=== PATIENT | female | born 1985 | race African-American/Black ===

== ENCOUNTER 2020-02-28 18:04 | Inpatient (IN) ==
[2020-02-28 18:35] VITALS: BMI 21.4
--- NOTE | 2020-02-28 20:55 | DR.GENAD ---
HPI Time Seen Time Seen by Provider: 02/28/20 20:54 PCP Primary Care Physician: GAIL SOLORZANO Complaint/Symptoms Chief Complaint:: PT HAS BRUISING NOTED TO LT HAND PT STATES" I THINK I HAVE A BLOOD CLOT IN MY HAND THAT HAS WENT UP IN MY LT ARM AND SHOULDER" COVID-19 Coronavirus risk:travel/contact w/high risk person: No Has patient experienced Coronavirus symptoms: No Nurses notes reviewed Nurses Notes Review: Yes Source History Provided: Patient Mode of Arrival Mode of Arrival: Ambulatory Timing Onset of Chief Complaint: 02/26/20 Came on: Suddenly Duration Duration: Constant Duration: Days Severity Severity: Moderate Modifying Factors Worsens:: MOVEMENT Improves:: REST. Associated Signs and Symptoms Associated Signs and Symptoms: ARTHRTIS Other History Other History: LUPUS. 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 Past Surgical History Comment: BILATERALLY HIP AND KNEE REPLACEMENT Family History History of Family Medical Conditions: No Social History Type of Tobacco Use: Cigarettes Does any household member use tobacco: Yes Alcohol Use: None Do you use any recreational Drugs:: Yes (THC) Lives With: Family Lives Where: Home Travel Risk Coronavirus risk:travel/contact w/high risk person: No Has patient experienced Coronavirus symptoms: No Infectious screening In the last 2 months have you had wt loss of >10#?: NO Have you had fever, night sweats or hemotysis?: No Have you traveled outside the country in the last 6 months?: No Isolation: Standard ROS Review of Systems Constitutional: No Symptoms Reported and See HPI; negative Fever, Weakness and Fatigue Eyes: No Symptoms Reported and See HPI; negative Blurred Vision and Diplopia ENTM: No Symptoms Reported and See HPI; negative Nose Discharge and Nose Congestion Respiratoy: No Symptoms Reported, See HPI and Moist Cough; negative Short of Breath and Wheezing Cardiovascular: See HPI and Edema; negative Chest Pain Gastrointestinal/Abdominal: No Symptoms Reported and See HPI; negative Abdominal Pain, Diarrhea, Nausea and Vomiting Genitourinary: No Symptoms Reported and See HPI; negative Dysuria, Frequency and Hematuria Neurological: See HPI and Headache; negative Weakness and Dizziness Musculoskeletal: See HPI, Arm (LT), Elbow (LT), Forearm (LT) and Wrist (LT) Integumentary: See HPI, Change in Color and Rash Hematologic/Lymphatic: See HPI, Blood Clots, Swollen Glands and Lymphadenopathy Endocrine: No Symptoms Reported and See HPI; negative Increased Thirst and Increased Urine Psychiatric: No Symptoms Reported and See HPI All Other Systems: Reviewed and Negative PE Vital Signs Vitals: Temperature 98.8 F Pulse Rate 90 Respiratory Rate 22 Blood Pressure 102/53 O2 Sat by Pulse Oximetry 97 General Limitations: No Limitations General Appearance: Alert and In No Apparent Distress Head Head Exam: Normal Inspection Eyes Eye exam: Normal Appearance and PERRL; negative Scleral Icterus and Conjunctival Injection ENT ENT Exam: Normal Exam, Normal Oropharynx, Normal External Ear Exam and TM's Normal Bilaterally External Ear Exam: Normal External Inspection; negative Mastoid Tenderness TM/Canal Exam: Bilateral: Normal Nose Exam: Normal Nose Exam Mouth Exam: Normal Inspection; negative Lip Swelling and Tongue Swelling Throat Exam: Normal Inspection; negative Tonsillar Erythema, Tonsillomegaly and Tonsillar Exudate Neck Neck Exam: Normal Inspection and Trachea Midline; negative Tenderness and Lymp hadenopathy Chest Chest Inspection: Normal Inspection and Symmetric Chest Wall Rise; negative Tenderness Respiratory Respiratory Exam: Normal Lung Sounds Bilat; negative Accessory Muscle Use, Chest Wall Tenderness and Respiratory Distress Respiratory Exam: Bilateral: Clear to Auscultation Cardiovascular Cardiovascular Exam: Regular Rate, Normal Rhythm and Normal Heart Sounds; negative Systolic Murmur and Diastolic Murmur Abdominal Exam Abdominal Exam: Normal Inspection, Normal Bowel Sounds and Soft; negative Tenderness Extremities Extremities Exam: Tenderness (LUE SWOLLEN AND TENDER.) Back Back Exam: Normal Inspection and Paraspinal Tenderness; negative (R) CVA Tenderness and (L) CVA Tenderness Neurologic Neurological Exam: Alert, Oriented X3 and CN II-XII Intact; negative Motor Sensory Deficit Psychiatric Psychiatric Exam: Normal Affect and Normal Mood Skin Skin Exam: Warm, Dry, Intact and Normal Color MDM Differential Diagnosis Differential Diagnosis: DVT LUE, PAIN LUE. LUPUS COURSE Treatment Treatment: SEE ORDERAS. TORADOL 60MG IM. Consultation Consultation Comments: DISCUSSED PATIENT WITH DR. GUERRERO. HE WILL ADMIT PATIENT. Education/Counseling Education/Counseling: Patient Educated On: Diagnosis ROR Labs Reviewed Laboratory Results Reviewed?: Yes Result Diagrams: 02/28/20 20:59 02/28/20 20:59 Laboratory: WBC 7.4 X10^3/uL (3.6-10.0) 02/28/20 20:59 RBC 3.23 X10^6/uL (3.5-5.4) L 02/28/20 20:59 Hgb 10.7 g/dL (12.0-16.0) L 02/28/20 20:59 Hct 31.8 % (36.0-47.0) L 02/28/20 20:59 MCV 98.6 fL (80.0-100.0) 02/28/20 20:59 MCH 33.1 pg (27.0-34.0) 02/28/20 20:59 MCHC 33.6 g/dL (33.0-35.0) 02/28/20 20:59 RDW 17.9 % (11.6-16.5) H 02/28/20 20:59 Plt Count 233 X10^3/uL (150.0-450.0) 02/28/20 20:59 MPV 7.5 fL (7.4-11.0) 02/28/20 20:59 Neut % (Auto) 64.3 % (42.0-75.0) 02/28/20 20:59 Lymph % (Auto) 26.4 % (21.0-51.0) 02/28/20 20:59 [place] % (Auto) 8.3 % (0.0-13.0) 02/28/20 20:59 Eos % (Auto) 0.0 % (0.9-2.9) L 02/28/20 20:59 Baso % (Auto) 1.0 % (0.2-1.0) 02/28/20 20:59 Neut # (Auto) 4.8 x10^3/uL (2.2-4.8) 02/28/20 20:59 Lymph # (Auto) 2.0 X10^3/uL (1.3-2.9) 02/28/20 20:59 [place] # (Auto) 0.6 x10^3/uL (0.3-0.8) 02/28/20 20:59 Eos # (Auto) 0.0 x10^3/uL (0.0-0.2) 02/28/20 20:59 Baso # (Auto) 0.1 X10^3/uL (0.0-0.1) 02/28/20 20:59 Absolute Nucleated RBC 0.1 /100WBC 02/28/20 20:59 PT 12.7 SECONDS (11.8-14.3) 02/28/20 23:56 INR Target Range - 02/28/20 23:56 INR 0.98 (0.8-1.3) 02/28/20 23:56 APTT 31.6 SECONDS (22.9-36.5) 02/28/20 23:56 PTT Comment - 02/28/20 23:56 D-Dimer 1130 ng/mL (0-400) H* 02/28/20 20:59 Sodium 132 mmol/L (136-145) L 02/28/20 20:59 Corrected Sodium TNP 02/28/20 20:59 Potassium 3.7 mmol/L (3.5-5.1) 02/28/20 20:59 Chloride 98 mmol/L (98-107) 02/28/20 20:59 Carbon Dioxide 29.2 mmol/L (21-32) 02/28/20 20:59 BUN 8 mg/dL (7-18) 02/28/20 20:59 Creatinine 0.61 mg/dL (0.55-1.02) 02/28/20 20:59 Est GFR (MDRD) Af Amer > 60 (>60) 02/28/20 20:59 Est GFR (MDRD) Non-Af > 60 (>60) 02/28/20 20:59 Glucose 75 mg/dL (65-99) 02/28/20 20:59 Calcium 8.7 mg/dL (8.5-10.1) 02/28/20 20:59 Corrected Calcium TNP 02/28/20 20:59 Total Bilirubin 0.30 mg/dL (0.2-1.0) 02/28/20 20:59 AST 32 Units/L (15-37) 02/28/20 20:59 ALT 36 Units/L (12-78) 02/28/20 20:59 Alkaline Phosphatase 107 Units/L (46-116) 02/28/20 20:59 C-Reactive Protein 30.70 mg/L (0-3.0) H 02/28/20 23:56 Total Protein 7.4 g/dL (6.4-8.2) 02/28/20 20:59 Albumin 3.4 g/dL (3.4-5.0) 02/28/20 20:59 Globulin 4.0 g/dL (2.5-4.5) 02/28/20 20:59 Albumin/Globulin Ratio 0.9 Ratio (1.1-2.1) L 02/28/20 20:59 Specimen Type Clean catch urine 02/28/20 23:38 Urine Color Yellow (YELLOW) 02/28/20 23:38 Urine Appearance Clear (CLEAR) 02/28/20 23:38 Urine pH 7.0 (5.0 - 8.0) 02/28/20 23:38 Ur Specific [place] 1.005 (1.000-1.030) 02/28/20 23:38 Urine Protein Negative (NEGATIVE) 02/28/20 23:38 Urine Glucose (UA) Negative (NEGATIVE) 02/28/20 23:38 Urine Ketones Negative (NEGATIVE) 02/28/20 23:38 Urine Occult Blood 1+ (NEGATIVE) 02/28/20 23:38 Urine Nitrite Negative (NEGATIVE) 02/28/20 23:38 Urine Bilirubin Negative (NEGATIVE) 02/28/20 23:38 Urine Urobilinogen Normal (NORMAL) 02/28/20 23:38 Ur Leukocyte Esterase 2+ (NEGATIVE) 02/28/20 23:38 Urine RBC 3-5 /HPF (0-3) A 02/28/20 23:38 Urine WBC 0-2 /HPF (0-5) 02/28/20 23:38 Ur Squamous Epith Cells Few /HPF (NEGATIVE) 02/28/20 23:38 Urine Bacteria Trace /HPF (NEGATIVE) 02/28/20 23:38 Ur Culture Indicated? No/not indicated 02/28/20 23:38 Urine Opiates Screen Positive (NEG=<300) A 02/28/20 23:38 Urine Methadone Screen Negative (NEG=<300) 02/28/20 23:38 Ur Barbiturates Screen Negative (NEG=<200) 02/28/20 23:38 Ur Phencyclidine Scrn Negative (NEG=<25) 02/28/20 23:38 Ur Amphetamines Screen Negative (NEG=<1000) 02/28/20 23:38 U Benzodiazepines Scrn Negative (NEG=<200) 02/28/20 23:38 Urine Cocaine Screen Positive (NEG=<300) A 02/28/20 23:38 U Marijuana (THC) Screen Negative (NEG=<50) 02/28/20 23:38 SARS-CoV-2 (PCR) Negative (NEGATIVE) 02/28/20 23:28 XRAY XRAY Interpreted by: Radiologist (US LUE REPORT NOTED AND DISCUSSED WITH JULIEN ENT.) Opioid Opioid Risk Tool Age (Yimi box if 16-45): Yes History of Preadolescent Sexual Abuse: No Total: 1 Total Score Risk Category: Low Risk Copyright: [facility] predicting aberrant behaviors Diagnosis Discharge Problem: Acute deep vein thrombosis of left upper extremity Qualifiers: Affected thrombotic vein of extremity: other upper extremity vein Qualified Code(s): I82.622 - Acute embolism and thrombosis of deep veins of left upper extremity Acute basilic vein thrombosis Qualifiers: Laterality: left Qualified Code(s): I82.612 - Acute embolism and thrombosis of superficial veins of left upper extremity Instructions Forms: Excuse From Work Precautions for COVID19 Patient Portal Social Distancing
[2020-02-28 21:03] LABS: BASOPHILS # (AUTO) 0.1 X10^3/uL (0.0-0.1); HEMATOCRIT 31.8 % (36.0-47.0); HEMOGLOBIN 10.7 g/dL (12.0-16.0); LYMPHOCYTES % (AUTO) 26.4 % (21.0-51.0); MEAN CORPUSCULAR HEMOGLOBIN 33.1 pg (27.0-34.0); MEAN CORPUSCULAR HGB CONC 33.6 g/dL (33.0-35.0); MEAN CORPUSCULAR VOLUME 98.6 fL (80.0-100.0); MEAN PLATELET VOLUME 7.5 fL (7.4-11.0); MONOCYTES # (AUTO) 0.6 x10^3/uL (0.3-0.8); MONOCYTES % (AUTO) 8.3 % (0.0-13.0); NEUTROPHILS # (AUTO) 4.8 x10^3/uL (2.2-4.8); NEUTROPHILS % (AUTO) 64.3 % (42.0-75.0); PLATELET COUNT 233 X10^3/uL (150.0-450.0); RED BLOOD COUNT 3.23 X10^6/uL (3.5-5.4); RED CELL DISTRIBUTION WIDTH 17.9 % (11.6-16.5); WHITE BLOOD COUNT 7.4 X10^3/uL (3.6-10.0)
[2020-02-28] MEDS ORDERED: TORADOL 60 MG VIAL IM ONE (21:06)
[2020-02-28] MEDS ORDERED: TORADOL 60 MG VIAL ONE (21:10)
[2020-02-28 21:18] LABS: ALANINE AMINOTRANSFERASE 36 Units/L (12-78); ALBUMIN 3.4 g/dL (3.4-5.0); ALKALINE PHOSPHATASE 107 Units/L (46-116); ASPARTATE AMINO TRANSFERASE 32 Units/L (15-37); BLOOD UREA NITROGEN 8 mg/dL (7-18); CALCIUM 8.7 mg/dL (8.5-10.1); CARBON DIOXIDE 29.2 mmol/L (21-32); CHLORIDE 98 mmol/L (98-107); CREATININE 0.61 mg/dL (0.55-1.02); SODIUM 132 mmol/L (136-145); TOTAL PROTEIN 7.4 g/dL (6.4-8.2); eGFR NON BLACK RACES > 60 (>60)
--- NOTE | 2020-02-28 21:23 | RAD ---
STUDY: HAND, LEFTCOMPARISON: NoneHISTORY: PT HAS BRUISING/ SWELLING NOTED TO LT HAND PT STATES" I THINK I HAVE A BLOOD CLOT IN MY HAND THAT HAS WENT UP IN MY LT ARM AND SHOULDER" unable to remove ring from swollen fingerFINDINGS:There is no evidence of fracture or joint dislocation.There is no evidence of an embedded radiopaque foreign body.Please note that the patient is wearing a ring on the 4th digit.IMPRESSION:There is no evidence of fracture or joint dislocation.Electronically signed by: David Murray (Feb 28, 2020 21:22:11)
--- NOTE | 2020-02-28 23:09 | VAS ---
STUDY: DUPLEX ULTRASOUND OF THE LEFT UPPER EXTREMITY VEINSCOMPARISON: NoneTECHNIQUE: 30 images were provided for interpretation.HISTORY: PAIN IN LEFT ARM X 3 DAYSFINDINGS:Exam is positive for thrombus in the left basilic vein demonstrated on image 26. The left jugular vein and subclavian vein demonstrate vascular flow. The left axillary vein, brachial vein, radial vein, and ulnar vein demonstrate compression and augmentation.IMPRESSION:Exam is positive for thrombus in the left basilic vein.Electronically signed by: David Murray (Feb 28, 2020 23:07:57)
[2020-02-28] MEDS ORDERED: TORADOL 30 MG VIAL IVP ONE (23:38)
[2020-02-29 00:39] LABS: BILIRUBIN,URINE NEGATIVE (NEGATIVE); BLOOD/HEMOGLOBIN,URINE 1+ (NEGATIVE); GLUCOSE, URINE NEGATIVE (NEGATIVE); KETONES,URINE NEGATIVE (NEGATIVE); LEUKOCYTE ESTERASE ,URINE 2+ (NEGATIVE); NITRITES,URINE NEGATIVE (NEGATIVE); PROTEIN,URINE NEGATIVE (NEGATIVE); UROBILINOGEN,URINE NORMAL (NORMAL)
[2020-02-29 00:40] LABS: APPEARANCE,URINE CLEAR (CLEAR); BACTERIA,URINE TRACE /HPF (NEGATIVE); COLOR,URINE YELLOW (YELLOW); SQUAMOUS EPITHELIAL CELL,UR FEW /HPF (NEGATIVE)
[2020-02-29] MEDS ORDERED: HEPARIN SODIUM INJ 5000 UNITS ONE ×2 (00:51→09:27)
[2020-02-29] MEDS ORDERED: HEPARIN SODIUM IN D5W 25,000 UNITS/500 ML BAG IV ONE (00:51)
[2020-02-29] MEDS: HEPARIN SODIUM IN D5W 25,000 UNITS/500 ML BAG IV PRN (01:00)
[2020-02-29] MEDS ORDERED: HEPARIN SODIUM INJ 5000 UNITS IVP ONE ×2 (01:01→09:21)
[2020-02-29] MEDS ORDERED: ROXICODONE TAB 15 MG ONE (02:23)
[2020-02-29] MEDS ORDERED: ROXICODONE TAB 15 MG PO ONE (02:30)
[2020-02-29] MEDS ORDERED: POTASSIUM CHL 40 MEQ/NS 0.45% 500 ML IV PRN (08:00)
[2020-02-29] MEDS ORDERED: MICRO K EXTEN CAP 10 MEQ PO PRN (08:00)
[2020-02-29] MEDS ORDERED: POTASSIUM CHLORIDE LIQ 20 MEQ UDC PO PRN (08:00)
[2020-02-29] MEDS ORDERED: POTASSIUM CHL 60 MEQ/NS 0.45% 500 ML IV PRN (08:00)
[2020-02-29] MEDS ORDERED: KLOR-CON PO PRN (08:00)
[2020-02-29] MEDS ORDERED: K-RIDER 10 MEQ/NS 100 ML 10 MEQ/100 ML BAG IV PRN (08:00)
[2020-02-29] MEDS ORDERED: K-DUR TAB 20 MEQ PO PRN (08:00)
[2020-02-29 08:07] LABS: ALANINE AMINOTRANSFERASE 32 Units/L (12-78); ALBUMIN 2.8 g/dL (3.4-5.0); ALKALINE PHOSPHATASE 111 Units/L (46-116); ASPARTATE AMINO TRANSFERASE 29 Units/L (15-37); BLOOD UREA NITROGEN 9 mg/dL (7-18); CALCIUM 7.8 mg/dL (8.5-10.1); CARBON DIOXIDE 28.2 mmol/L (21-32); CHLORIDE 101 mmol/L (98-107); COR CA(FOR HYPOALB) 8.8 mg/dL (8.5-10.1); CREATININE 0.51 mg/dL (0.55-1.02); SODIUM 132 mmol/L (136-145); TOTAL PROTEIN 6.6 g/dL (6.4-8.2); eGFR NON BLACK RACES > 60 (>60)
[2020-02-29 08:13] LABS: BASOPHILS # (AUTO) 0.1 X10^3/uL (0.0-0.1); BASOPHILS % (AUTO) 1.4 % (0.2-1.0); EOSINOPHILS % (AUTO) 0.1 % (0.9-2.9); HEMATOCRIT 30.6 % (36.0-47.0); HEMOGLOBIN 10.1 g/dL (12.0-16.0); LYMPHOCYTES % (AUTO) 42.1 % (21.0-51.0); MEAN CORPUSCULAR HEMOGLOBIN 32.3 pg (27.0-34.0); MEAN CORPUSCULAR HGB CONC 32.9 g/dL (33.0-35.0); MEAN CORPUSCULAR VOLUME 98.3 fL (80.0-100.0); MEAN PLATELET VOLUME 8.7 fL (7.4-11.0); MONOCYTES # (AUTO) 0.6 x10^3/uL (0.3-0.8); MONOCYTES % (AUTO) 8.8 % (0.0-13.0); NEUTROPHILS # (AUTO) 3.4 x10^3/uL (2.2-4.8); NEUTROPHILS % (AUTO) 47.6 % (42.0-75.0); PLATELET COUNT 217 X10^3/uL (150.0-450.0); RED BLOOD COUNT 3.11 X10^6/uL (3.5-5.4); RED CELL DISTRIBUTION WIDTH 18.2 % (11.6-16.5); WHITE BLOOD COUNT 7.2 X10^3/uL (3.6-10.0)
[2020-02-29] MEDS ORDERED: OXYCODONE 30 MG PO SCH (09:00)
[2020-02-29] MEDS ORDERED: K-DUR TAB 20 MEQ PO ONE (09:26)
[2020-02-29] MEDS ORDERED: TORADOL 30 MG VIAL ONE (09:26)
[2020-02-29] MEDS: TORADOL 30 MG VIAL IVP PRN ×2 (09:29→17:23)
[2020-02-29] MEDS ORDERED: MAGNESIUM SULFATE 1 GRAM/100 mL PREMIX 2 G/200 ML BAG IV ONE (09:49)
[2020-02-29] MEDS ORDERED: MAGNESIUM SULFATE 1 GRAM/100 mL PREMIX 1 GM/100 ML BAG IV PRN (10:18)
[2020-02-29] MEDS: ROXICODONE TAB 15 MG PO SCH ×2 (10:22→22:29)
[2020-02-29] MEDS ORDERED: NS 250 ML IV 250 ML IV PRN (10:38)
[2020-02-29] MEDS ORDERED: NS 250 ML IV 250 ML IV ONE (10:40)
--- NOTE | 2020-02-29 11:15 | DR.H&P ---
H&P - History & Physical for Day of: H&P Date: 02/29/20 - Chief Complaint Chief Complaint: LEFT HAND, ARM, AND SHOULDER SWELLING AND PAIN - History of Present Illness History of Present Illness: IS A 34 YEAR OLD PATIENT OF [facility]. SHE PRESENTED TO THE ER WITH COMPLAINT OF LEFT HAND, ARM, AND SHOULDER SWELLING AND PAIN. SYMPTOMS REPORTEDLY STARTED THREE DAYS PRIOR. PAIN IS DESCRIBED THROBBING AND IS RATED 7/10. HER PMH INCLUDES: LUPUS, ARTHRITIS, BOWEL RESECTION, , BILATERAL HIP AND KNEE REPLACEMENT, AND SUBSTANCE ABUSE. ON ARRIVAL TO THE ER, VITALS WERE 98.8-90-18-97%-102/53. LABS WERE OBTAINED. ABNORMAL LAB VALUES INCLUDE THE FOLLOWING: RBC 3.23, HGB 10.7, HCT 31.8, D-DIMER 1130, SODIUM 132, CRP 30.70. A URINALYSIS WAS OBTAINED AND REVEALED: WBC 0-2, RBC 3-5, LEUKOCYTES 2+, BACTERIA TRACE. TOXICOLOGY IS POSITIVE FOR OPIATES AND COCAINE. A HAND XRAY WAS OBTAINED AND REVEALED: There is no evidence of fracture or joint dislocation. AN UPPER EXTREMITY VENOUS DOPPLER WAS OBTAINED AND REVEALED: Exam is positive for thrombus in the left basilica vein. EKG REVEALED: SINUS RHYTHM WITH HR 79. SHE WAS GIVEN TORADOL 60MG IM X 1 IN THE ER AND STARTED ON A HEPARIN DRIP. SHE WAS ADMITTED FOR FURTHER EVALUATION AND TREATMENT OF DVT TO THE LEFT UPPER EXTREMITY AND LEFT UPPER EXTREMITY PAIN. SHE WILL REMAIN ON A HEPARIN DRIP AND WAS ALSO STARTED ON NS AT KVO, TORADOL 30MG IV Q8H PRN, METHOTREXATE 10MG PO WEEKLY, ROXICODONE 30MG PO BID, AND THE POTASSIUM AND MAGNESIUM PROTOCOLS. WE WILL COST CHECK ANTICOAGULANTS WITH HER INSURANCE AND MAKE FURTHER PLANS BASED ON OUR FINDINGS. OTHERWISE, WE PLAN TO FOLLOW UP WITH AM LABS AND CONTINUE TO MONITOR. - Past Medical History Past Medical History: Arthritis - Past Surgical History Surgical History: , Ortho Surgery, Other - Family History Family Medical History: Diabetes Mellitus, Cancer - Social History Does patient currently use any type of tobacco product: No Have you used tobacco products in the last 12 months: No Type of Tobacco Use: None Does any household member use tobacco: No Alcohol Use: None Drug Use: Prescription Drugs, Marijuana, Other - Medications Home Medications: vancomycin Allergy (Verified 02/28/20 18:24) CONTINUE taking the following medications methotrexate sodium 10 mg PO WEEKLY 02/28/20 [History] oxycodone 30 mg PO BID 02/28/20 [History] ergocalciferol (vitamin D2) 1,250 mcg PO MONTHLY 02/29/20 [History] prednisone 5 mg PO BID 02/29/20 [History] - Review of Systems Constitutional: No Symptoms Reported Eyes: No Symptoms Reported ENT: No Symptoms Reported Respiratory: No Symptoms Reported Cardiovascular: Edema (LEFT ARM SWELLING ) Gastrointestinal: No Symptoms Reported Genitourinary: No Symptoms Reported Musculoskeletal: See HPI, Shoulder Pain, Arm Pain, Hand Pain Skin: See HPI Neurological: No Symptoms Reported - Physical Exam Vital Signs: Temperature 98.2 F Pulse Rate [Left] 80 Pulse Rate 90 Respiratory Rate 20 Blood Pressure [Left Arm] 107/60 Blood Pressure 102/53 O2 Sat by Pulse Oximetry 97 Oriented: Normal Eyes: Normal Ear: Normal Nose: Normal Throat: Normal Respiratory: Diminished Throughout Cardiovascular: Normal : Normal Auscultation: Bowel Sounds: Normal Palpation: Normal Tenderness: Normal Skin: Normal Musculoskeletal: Left, Shoulder, Arm, Swelling, Tender Psychiatric: Normal Mood Description: Calm Affect: Normal Speech Pattern: Clear - Assessment/Plan (1) Acute deep vein thrombosis of left upper extremity Qualifiers: Affected thrombotic vein of extremity: other upper extremity vein Qualified Code(s): I82.622 - Acute embolism and thrombosis of deep veins of left upper extremity Status: Acute Plan: ADMIT, NS AT KVO, HEPARIN DRIP, TORADOL 30MG IV Q8H PRN, METHOTREXATE 10MG PO WEEKLY, ROXICODONE 30MG PO BID, AND THE POTASSIUM AND MAGNESIUM PROTOCOLS (2) Acute basilic vein thrombosis Qualifiers: Laterality: left Qualified Code(s): I82.612 - Acute embolism and thrombosis of superficial veins of left upper extremity Status: Acute - Allergies Allergies/Adverse Reactions: Allergies Allergy/AdvReac Type Severity Reaction Status Date / Time vancomycin Allergy Verified 02/28/20 18:24
[2020-03-01] MEDS: TORADOL 30 MG VIAL IVP PRN (05:21)
[2020-03-01] MEDS: HEPARIN SODIUM IN D5W 25,000 UNITS/500 ML BAG IV PRN (05:23)
[2020-03-01 05:42] LABS: BASOPHILS # (AUTO) 0.2 X10^3/uL (0.0-0.1); BASOPHILS % (AUTO) 2.8 % (0.2-1.0); EOSINOPHILS % (AUTO) 0.2 % (0.9-2.9); HEMATOCRIT 31.3 % (36.0-47.0); HEMOGLOBIN 10.4 g/dL (12.0-16.0); LYMPHOCYTES # (AUTO) 2.1 X10^3/uL (1.3-2.9); LYMPHOCYTES % (AUTO) 34.7 % (21.0-51.0); MEAN CORPUSCULAR HEMOGLOBIN 32.9 pg (27.0-34.0); MEAN CORPUSCULAR HGB CONC 33.1 g/dL (33.0-35.0); MEAN CORPUSCULAR VOLUME 99.5 fL (80.0-100.0); MEAN PLATELET VOLUME 8.8 fL (7.4-11.0); MONOCYTES # (AUTO) 0.5 x10^3/uL (0.3-0.8); MONOCYTES % (AUTO) 8.8 % (0.0-13.0); NEUTROPHILS # (AUTO) 3.2 x10^3/uL (2.2-4.8); NEUTROPHILS % (AUTO) 53.5 % (42.0-75.0); PLATELET COUNT 209 X10^3/uL (150.0-450.0); RED BLOOD COUNT 3.15 X10^6/uL (3.5-5.4); RED CELL DISTRIBUTION WIDTH 18.4 % (11.6-16.5)
[2020-03-01 05:50] LABS: ALANINE AMINOTRANSFERASE 41 Units/L (12-78); ALBUMIN 2.6 g/dL (3.4-5.0); ALKALINE PHOSPHATASE 136 Units/L (46-116); ASPARTATE AMINO TRANSFERASE 42 Units/L (15-37); BLOOD UREA NITROGEN 7 mg/dL (7-18); CALCIUM 7.8 mg/dL (8.5-10.1); CARBON DIOXIDE 25.8 mmol/L (21-32); CHLORIDE 105 mmol/L (98-107); COR CA(FOR HYPOALB) 8.9 mg/dL (8.5-10.1); CREATININE 0.55 mg/dL (0.55-1.02); MAGNESIUM 2.2 mg/dL (1.7-2.9); SODIUM 138 mmol/L (136-145); TOTAL PROTEIN 6.3 g/dL (6.4-8.2); eGFR NON BLACK RACES > 60 (>60)
[2020-03-01] MEDS: ROXICODONE TAB 15 MG PO SCH (08:27)
[2020-03-01] MEDS ORDERED: ELIQUIS PO ONE (09:42)
[2020-03-01 10:16] VITALS: BP 112/57
[2020-03-02 08:36] LABS: ANTI-NUCLEAR ANTIBODY TEST Detected (None Detected); PROTEIN C ACTIVITY 85 % (83-168)
[2020-03-04] MEDS ORDERED: METHOTREXATE PO SCH (09:00)
== END 2020-03-01 11:05 | disposition home or self-care (01) | DRG 301 ==
LOC: ER 18:09 → MED/SURG 02-29 01:17
PROVIDERS: ADMIT Internal Medicine; ATTEND Internal Medicine
DX: I82.612 Acute embolism and thrombosis of superficial veins of left upper extremity; R94.31 Abnormal electrocardiogram [ECG] [EKG]; R60.0 Localized edema; Z11.59 Encounter for screening for other viral diseases; F14.90 Cocaine use, unspecified, uncomplicated; I82.622 Acute embolism and thrombosis of deep veins of left upper extremity; M79.602 Pain in left arm; F11.90 Opioid use, unspecified, uncomplicated
CPT/HCPCS: 36415; 73130; 80053; 80307; 81001; 81240; 82615; 83090; 83735; 85025; 85300; 85303; 85305; 85306; 85307; 85378; 85597; 85610; 85613; 85635; 85652; 85670; 85730; 85732; 86038; 86039; 86140; 86308; 87635; 93005; 93971; 94760; 96365; 96372; 96374; 96375; 99284; A4222; J1644; J1885; J3475; J7050

== ENCOUNTER 2020-03-06 17:10 | Inpatient (IN) ==
[2020-03-06 17:20] VITALS: BMI 21.4
--- NOTE | 2020-03-06 17:38 | DR.EXTPAIN ---
HPI Time seen Time Seen by Provider: 03/06/20 17:38 PCP Primary Care Physician: GAIL HPI Comment HPI Comment: PATIENT IS 34YR OLD FEMALE WITH SYSTEMIC LUPUS ERYTHOMATOSIS IN ER WITH DVT LEFT BASIIC VEIN THAT IS GETTING WORSE SINCE YESTERDAY. PAIN IN INCEASED AND SWELLING IS WORSE. SHE WAS ADMITTED TO [facility] HERE ONE WEEK AGO, PLACE ON HEPARIN DRIP AND DISCHARGE HOME ON [address]. WAS DOING FINE WHEN SHE STARTED GETTING WORSE YESTERDAY. LUE IS SWOLLEN AND WARM. RUNNING LOW GRADE FEVER. SHE IS COMPLAINT WITH HER MEDICATION. PATIENT IS HAVING INCREASING NUMBNESS IN LUE. PAIN IS 7/10 AND RADIATES TO HAND AND ARM. Complaint/Symptoms Chief Complaint Doctor Comments: LEFT FOREARM AND UPPER EXTREMITY PAIN TIMES 8 DAYS. WORSE YESTERDAY. Chief Complaint:: PT C/O LT FOREARM PAIN. PT STATES SHE WAS JUST IN THE HOSPITAL WITH A BLOOD CLOT AND WAS TOLD THAT IF SHE HAS ANY NEW SYMPTOMS TO COME BACK. PT STATES SHE IS HAVING NUMBNESS AND TINGLING TO HER HAND AND PAIN IN HER FOREARM. COVID-19 Coronavirus risk:travel/contact w/high risk person: No Has patient experienced Coronavirus symptoms: Yes Coronavirus symptoms experienced: Fever Nurses notes reviewed Nurses Notes Review: Yes Source History Provided: Patient Mode of arrival Mode of Arrival: Ambulatory Timing Onset of Chief Complaint: 03/05/20 Context History of: Arthritis Associated signs and symptoms Associated Signs and Symptoms: Pain and Swelling PMH PMH Past Medical History: Yes Past Medical History: Arthritis Past Medical History Comment: LUPUS Past Surgical History: Yes Surgical History: , Ortho Surgery and Other Past Surgical History Comment: ABD SURGERY, HERNIA REPAIR Family History History of Family Medical Conditions: Yes Family Medical History: Diabetes Mellitus and Cancer Social History Does patient currently use any type of tobacco product: Yes Have you used tobacco products in the last 12 months: Yes Type of Tobacco Use: Cigarettes Does any household member use tobacco: Yes Alcohol Use: None Do you use any recreational Drugs:: No Lives With: Family Lives Where: Home Travel Risk Coronavirus risk:travel/contact w/high risk person: No Has patient experienced Coronavirus symptoms: Yes Coronavirus symptoms experienced: Fever Infectious screening In the last 2 months have you had wt loss of >10#?: NO Have you had fever, night sweats or hemotysis?: No Have you traveled outside the country in the last 6 months?: No Isolation: Droplet ROS Review of Systems Constitutional: No Symptoms Reported, See HPI and Fever; negative Weakness and Fatigue Eyes: No Symptoms Reported and See HPI; negative Blurred Vision and Diplopia ENTM: No Symptoms Reported and See HPI; negative Ear Pain, Nose Discharge, Nose Congestion and Throat Pain Respiratoy: No Symptoms Reported and See HPI; negative Moist Cough, Short of Breath and Wheezing Cardiovascular: No Symptoms Reported and See HPI; negative Chest Pain and Palpitations Gastrointestinal/Abdominal: No Symptoms Reported and See HPI; negative Abdominal Pain, Diarrhea and Vomiting Genitourinary: No Symptoms Reported and See HPI; negative Dysuria, Frequency and Hematuria Neurological: No Symptoms Reported, See HPI, Numbness (LUE.) and Paresthesia (LUE.) Musculoskeletal: No Symptoms Reported, See HPI, Arm (LT.), Elbow (LT.), Forearm (LT.), Wrist (LT.) and Hand (LT.) Integumentary: No Symptoms Reported and See HPI; negative Change in Color, Rash and Juandice Hematologic/Lymphatic: See HPI, Anemia, Blood Clots, Easy Bleeding and Easy Bruising Endocrine: No Symptoms Reported and See HPI; negative Increased Thirst, Increased Urine and Decreased Appetite Psychiatric: No Symptoms Reported and See HPI All Other Systems: Reviewed and Negative PE Vital Signs Vitals: Temperature 99.0 F Pulse Rate [Right] 75 Pulse Rate 99 Respiratory Rate 21 Blood Pressure [Right Arm] 122/84 Blood Pressure 109/68 O2 Sat by Pulse Oximetry 97 General Limitations: No Limitations General Appearance: Alert and In No Apparent Distress Head Head Exam: Normal Inspection and Atraumatic Eyes Eye exam: Normal Appearance and PERRL; negative Scleral Icterus and Conjunctival Injection ENT ENT Exam: Normal Exam, Normal Oropharynx, Normal External Ear Exam and TM's Normal Bilaterally Neck Neck Exam: Normal Inspection and Trachea Midline; negative Tenderness and Lymphadenopathy Chest Chest Inspection: Normal Inspection and Symmetric Chest Wall Rise; negative Tenderness Respiratory Respiratory Exam: Normal Lung Sounds Bilat; negative Accessory Muscle Use, Chest Wall Tenderness and Respiratory Distress Respiratory Exam: Bilateral: Clear to Auscultation Cardiovascular Cardiovascular Exam: Regular Rate, Normal Rhythm and Normal Heart Sounds; n egative Systolic Murmur and Diastolic Murmur Abdominal Exam Abdominal Exam: Normal Inspection, Normal Bowel Sounds and Soft; negative Tenderness Extremities Extremities Exam: Tenderness, Normal Capillary Refill and Edema (LUE SWELLING, LATERAL LEFT ELBOW MORE SWOLLEN.); negative Full ROM and Calf Tenderness Back Back Exam: negative (R) CVA Tenderness and (L) CVA Tenderness Neurological Neurological Exam: Alert, Oriented X3 and CN II-XII Intact; negative Motor Sensory Deficit Psychiatric Psychiatric Exam: Normal Affect and Normal Mood Skin Skin Exam: Warm and Erythema MDM Differential Diagnosis Differential Diagnosis: Other (DVT LUE, SWELLING AND PAIN LUE, SLE.) COURSE Treatment Treatment: SEE ORDERS. HEPARIN DRIP IN ER. MORPHIN 4MG IV AND ZOFRAN 4MG IV IN ER. Reevaluation 1st: Improved (PAIN SLIGHTLY IMPROVED.) Consultation Consultation Comments: DISCUSSED PATIENT WITH DR. MONTALVO. HE WILL ADMIT PATIENT. Education/Counseling Education/Counseling: Patient Educated On: Diagnosis ROR Labs Reviewed Laboratory Results Reviewed?: Yes Result Diagrams: 03/08/20 05:05 03/08/20 05:05 Laboratory: WBC 5.5 X10^3/uL (3.6-10.0) 03/06/20 22:11 RBC 3.15 X10^6/uL (3.5-5.4) L 03/06/20 22:11 Hgb 10.5 g/dL (12.0-16.0) L 03/06/20 22:11 Hct 31.1 % (36.0-47.0) L 03/06/20 22:11 MCV 98.7 fL (80.0-100.0) 03/06/20 22:11 MCH 33.2 pg (27.0-34.0) 03/06/20 22:11 MCHC 33.7 g/dL (33.0-35.0) 03/06/20 22:11 RDW 18.9 % (11.6-16.5) H 03/06/20 22:11 Plt Count 304 X10^3/uL (150.0-450.0) 03/06/20 22:11 MPV 9.2 fL (7.4-11.0) 03/06/20 22:11 Neut % (Auto) 55.7 % (42.0-75.0) 03/06/20 22:11 Lymph % (Auto) 32.6 % (21.0-51.0) 03/06/20 22:11 [place] % (Auto) 10.8 % (0.0-13.0) 03/06/20 22:11 Eos % (Auto) 0.1 % (0.9-2.9) L 03/06/20 22:11 Baso % (Auto) 0.8 % (0.2-1.0) 03/06/20 22:11 Neut # (Auto) 3.0 x10^3/uL (2.2-4.8) 03/06/20 22:11 Lymph # (Auto) 1.8 X10^3/uL (1.3-2.9) 03/06/20 22:11 [place] # (Auto) 0.6 x10^3/uL (0.3-0.8) 03/06/20 22:11 Eos # (Auto) 0.0 x10^3/uL (0.0-0.2) 03/06/20 22:11 Baso # (Auto) 0.0 X10^3/uL (0.0-0.1) 03/06/20 22:11 Absolute Nucleated RBC 0.0 /100WBC 03/06/20 22:11 PT 12.9 SECONDS (11.8-14.3) 03/06/20 22:11 INR Target Range - 03/06/20 22:11 INR 1.00 (0.8-1.3) 03/06/20 22:11 APTT 31.3 SECONDS (22.9-36.5) 03/06/20 22:11 PTT Comment - 03/06/20 22:11 Sodium 142 mmol/L (136-145) 03/06/20 22:11 Corrected Sodium TNP 03/06/20 22:11 Potassium 4.1 mmol/L (3.5-5.1) 03/06/20 22:11 Chloride 108 mmol/L (98-107) H 03/06/20 22:11 Carbon Dioxide 21.4 mmol/L (21-32) 03/06/20 22:11 BUN 15 mg/dL (7-18) 03/06/20 22:11 Creatinine 0.53 mg/dL (0.55-1.02) L 03/06/20 22:11 Est GFR (MDRD) Af Amer > 60 (>60) 03/06/20 22:11 Est GFR (MDRD) Non-Af > 60 (>60) 03/06/20 22:11 Glucose 108 mg/dL (65-99) H 03/06/20 22:11 Calcium 8.9 mg/dL (8.5-10.1) 03/06/20 22:11 Corrected Calcium 9.5 mg/dL (8.5-10.1) 03/06/20 22:11 Total Bilirubin 0.30 mg/dL (0.2-1.0) 03/06/20 22:11 AST 26 Units/L (15-37) 03/06/20 22:11 ALT 26 Units/L (12-78) 03/06/20 22:11 Alkaline Phosphatase 167 Units/L (46-116) H 03/06/20 22:11 Total Protein 7.0 g/dL (6.4-8.2) 03/06/20 22:11 Albumin 3.3 g/dL (3.4-5.0) L 03/06/20 22:11 Globulin 3.7 g/dL (2.5-4.5) 03/06/20 22:11 Albumin/Globulin Ratio 0.9 Ratio (1.1-2.1) L 03/06/20 22:11 SARS-CoV-2 (PCR) Negative (NEGATIVE) 03/06/20 22:41 XRAY XRAY Interpreted by: Radiologist (REPORT NOTED AND DISCUSSED WITH PATIENT.) Opioid Opioid Risk Tool Age (Yimi box if 16-45): Yes History of Preadolescent Sexual Abuse: No Total: 1 Total Score Risk Category: Low Risk Copyright: [facility] predicting aberrant behaviors Diagnosis Discharge Problem: Diffuse pain in left upper extremity Acute basilic vein embolism Qualifiers: Laterality: left Qualified Code(s): I82.612 - Acute embolism and thrombosis of superficial veins of left upper extremity SLE (systemic lupus erythematosus) Qualifiers: Systemic lupus erythematosus type: other Systemic lupus erythematosus organ involvement: unspecified Qualified Code(s): M32.8 - Other forms of systemic lupus erythematosus Instructions Instructions: Fatigue Hand Washing, [id number] Managing Pain Without Opioids Pain Scale Information, Adult Weakness, [id number] Opioid Pain Medicine Information, [id number] Personal Hygiene Bleeding Precautions When on Anticoagulant Therapy, Adult Deep Vein Thrombosis Venous Thromboembolism Prevention Forms: Precautions for COVID19 Patient Portal Social Distancing
--- NOTE | 2020-03-06 19:24 | VAS ---
HISTORYLUE SWELLING AND PAIN[Extremity pain, swelling, and edema]Study: Left upper extremity Doppler venous ultrasound.Comparison: February 28, 2020.TECHNIQUE: Multiple blank scale and color flow Doppler images of the deep venous system were obtained of the left upper extremity.FINDINGS:The deep venous system of the left upper extremity evaluated from the level of the internal jugular vein through the [radial and ulnar veins]. Normal color flow and augmentation can be observed. In addition, normal compression is seen throughout the upper extremity deep venous system. Residual thrombus in the left basilic vein.IMPRESSION:Residual, slightly enlarged, venous thrombus observed in the left basilic vein.Electronically signed by: GRACE NGUYEN III (Mar 06, 2020 19:23:56)
[2020-03-06] MEDS ORDERED: NS 1000 ML 1,000 ML ONE (22:23)
[2020-03-06] MEDS ORDERED: HEPARIN SODIUM IN D5W 25,000 UNITS/500 ML BAG IV ONE (22:23)
[2020-03-06] MEDS: NS 1000 ML 1,000 ML IV SCH (22:35)
[2020-03-06] MEDS ORDERED: HEPARIN SODIUM INJ 5000 UNITS ONE (22:49)
[2020-03-06] MEDS: HEPARIN SODIUM IN D5W 25,000 UNITS/500 ML BAG IV PRN (22:53)
[2020-03-06] MEDS ORDERED: HEPARIN SODIUM INJ 5000 UNITS IVP ONE (22:54)
[2020-03-06] MEDS ORDERED: ZOFRAN INJ 4 MG VIAL IVP ONE (23:19)
[2020-03-06] MEDS ORDERED: MORPHINE SULFATE INJ 4 MG IVP ONE (23:19)
[2020-03-06] MEDS ORDERED: MORPHINE SULFATE INJ 4 MG ONE (23:20)
[2020-03-06] MEDS ORDERED: ZOFRAN INJ 4 MG VIAL ONE (23:20)
[2020-03-06 23:55] LABS: BASOPHILS % (AUTO) 0.8 % (0.2-1.0); EOSINOPHILS % (AUTO) 0.1 % (0.9-2.9); HEMATOCRIT 31.1 % (36.0-47.0); HEMOGLOBIN 10.5 g/dL (12.0-16.0); LYMPHOCYTES # (AUTO) 1.8 X10^3/uL (1.3-2.9); LYMPHOCYTES % (AUTO) 32.6 % (21.0-51.0); MEAN CORPUSCULAR HEMOGLOBIN 33.2 pg (27.0-34.0); MEAN CORPUSCULAR HGB CONC 33.7 g/dL (33.0-35.0); MEAN CORPUSCULAR VOLUME 98.7 fL (80.0-100.0); MEAN PLATELET VOLUME 9.2 fL (7.4-11.0); MONOCYTES # (AUTO) 0.6 x10^3/uL (0.3-0.8); MONOCYTES % (AUTO) 10.8 % (0.0-13.0); NEUTROPHILS % (AUTO) 55.7 % (42.0-75.0); PLATELET COUNT 304 X10^3/uL (150.0-450.0); RED BLOOD COUNT 3.15 X10^6/uL (3.5-5.4); RED CELL DISTRIBUTION WIDTH 18.9 % (11.6-16.5); WHITE BLOOD COUNT 5.5 X10^3/uL (3.6-10.0)
[2020-03-07 00:04] LABS: ALANINE AMINOTRANSFERASE 26 Units/L (12-78); ALBUMIN 3.3 g/dL (3.4-5.0); ALKALINE PHOSPHATASE 167 Units/L (46-116); ASPARTATE AMINO TRANSFERASE 26 Units/L (15-37); BLOOD UREA NITROGEN 15 mg/dL (7-18); CALCIUM 8.9 mg/dL (8.5-10.1); CARBON DIOXIDE 21.4 mmol/L (21-32); CHLORIDE 108 mmol/L (98-107); COR CA(FOR HYPOALB) 9.5 mg/dL (8.5-10.1); CREATININE 0.53 mg/dL (0.55-1.02); SODIUM 142 mmol/L (136-145); eGFR NON BLACK RACES > 60 (>60)
[2020-03-07] MEDS ORDERED: MOTRIN TAB 600 MG PO PRN (02:50)
[2020-03-07] MEDS ORDERED: ZOFRAN INJ 4 MG VIAL IVP PRN (02:50)
[2020-03-07] MEDS ORDERED: CIPRO IV 200 MG PREMIX* 200 MG/100 ML BAG IV SCH ×2 (02:50→12:00)
[2020-03-07] MEDS ORDERED: ZOFRAN TAB 4 MG PO PRN (02:50)
[2020-03-07] MEDS ORDERED: CIPRO IV ONE (03:00)
[2020-03-07] MEDS ORDERED: MOTRIN TAB 600 MG PO ONE (03:00)
[2020-03-07] MEDS: MORPHINE SULFATE INJ 4 MG IVP PRN ×4 (05:05→21:56)
[2020-03-07] MEDS: NS 1000 ML 1,000 ML IV SCH ×3 (05:16→22:28)
[2020-03-07 06:49] LABS: BASOPHILS # (AUTO) 0.1 X10^3/uL (0.0-0.1); BASOPHILS % (AUTO) 1.2 % (0.2-1.0); EOSINOPHILS % (AUTO) 0.1 % (0.9-2.9); HEMATOCRIT 30.5 % (36.0-47.0); HEMOGLOBIN 10.4 g/dL (12.0-16.0); LYMPHOCYTES % (AUTO) 36.5 % (21.0-51.0); MEAN CORPUSCULAR HEMOGLOBIN 33.3 pg (27.0-34.0); MEAN CORPUSCULAR HGB CONC 34.1 g/dL (33.0-35.0); MEAN CORPUSCULAR VOLUME 97.9 fL (80.0-100.0); MEAN PLATELET VOLUME 8.3 fL (7.4-11.0); MONOCYTES # (AUTO) 0.7 x10^3/uL (0.3-0.8); MONOCYTES % (AUTO) 12.2 % (0.0-13.0); NEUTROPHILS # (AUTO) 2.7 x10^3/uL (2.2-4.8); PLATELET COUNT 289 X10^3/uL (150.0-450.0); RED BLOOD COUNT 3.11 X10^6/uL (3.5-5.4); RED CELL DISTRIBUTION WIDTH 19.2 % (11.6-16.5); WHITE BLOOD COUNT 5.4 X10^3/uL (3.6-10.0)
[2020-03-07 06:56] LABS: ALANINE AMINOTRANSFERASE 23 Units/L (12-78); ALBUMIN 2.9 g/dL (3.4-5.0); ALKALINE PHOSPHATASE 149 Units/L (46-116); ASPARTATE AMINO TRANSFERASE 24 Units/L (15-37); BLOOD UREA NITROGEN 16 mg/dL (7-18); CALCIUM 8.2 mg/dL (8.5-10.1); CARBON DIOXIDE 20.9 mmol/L (21-32); CHLORIDE 110 mmol/L (98-107); COR CA(FOR HYPOALB) 9.1 mg/dL (8.5-10.1); SODIUM 141 mmol/L (136-145); TOTAL PROTEIN 6.8 g/dL (6.4-8.2); eGFR NON BLACK RACES > 60 (>60)
[2020-03-07] MEDS ORDERED: K-RIDER 10 MEQ/NS 100 ML 10 MEQ/100 ML BAG IV PRN ×2 (07:00→07:39)
[2020-03-07] MEDS ORDERED: POTASSIUM CHL 60 MEQ/NS 0.45% 500 ML IV PRN ×2 (07:00→07:39)
[2020-03-07] MEDS ORDERED: POTASSIUM CHLORIDE LIQ 20 MEQ UDC PO PRN ×2 (07:00→07:39)
[2020-03-07] MEDS ORDERED: K-DUR TAB 20 MEQ PO PRN ×2 (07:00→07:39)
[2020-03-07] MEDS ORDERED: KLOR-CON PO PRN ×2 (07:00→07:39)
[2020-03-07] MEDS ORDERED: MICRO K EXTEN CAP 10 MEQ PO PRN ×2 (07:00→07:39)
[2020-03-07] MEDS ORDERED: POTASSIUM CHL 40 MEQ/NS 0.45% 500 ML IV PRN ×2 (07:00→07:39)
[2020-03-07] MEDS ORDERED: HEPARIN SODIUM INJ 5000 UNITS ONE ×2 (07:21→20:07)
[2020-03-07] MEDS ORDERED: HEPARIN SODIUM INJ 5000 UNITS IVP ONE ×2 (07:27→20:05)
[2020-03-07] MEDS ORDERED: MAGNESIUM SULFATE 1 GRAM/100 mL PREMIX 1 GM/100 ML BAG IV PRN (07:39)
[2020-03-07] MEDS: MAG-OX TAB PO SCH ×2 (10:07→17:32)
--- NOTE | 2020-03-07 18:24 | DR.H&P ---
H&P - History & Physical for Day of: H&P Date: 03/07/20 - Chief Complaint Chief Complaint: BLOOD CLOT IN LEFT ARM, LEFT ARM PAIN AND SWELLING - History of Present Illness History of Present Illness: PT IS 34F ER ADMISSION WITH CO INCREASED PAIN TO LEFT UPPER ARM. PT WAS DIAGNOSED WITH DVT TO CHARLY LAST WEEK, SENT HOME ON PO ELIQUIS. PT REPORTS SHE WAS TAKEN DIRECTED, 10MG BID, WHICH SHE HAS HAD 3 DOSES AT HOME. PT HAS PMH OF LUPUS, REPORTS PREVIOUS DVT - Past Medical History Past Medical History: Arthritis - Past Surgical History Surgical History: , Ortho Surgery - Family History Family Medical History: Diabetes Mellitus, Cancer - Social History Does patient currently use any type of tobacco product: No Have you used tobacco products in the last 12 months: No Type of Tobacco Use: None Does any household member use tobacco: No Alcohol Use: None Drug Use: Prescription Drugs, Marijuana - Medications Home Medications: vancomycin Allergy (Verified 02/28/20 18:24) - Review of Systems Constitutional: No Symptoms Reported Eyes: No Symptoms Reported, Vision Change Respiratory: No Symptoms Reported Cardiovascular: No Symptoms Reported Gastrointestinal: No Symptoms Reported Genitourinary: No Symptoms Reported Musculoskeletal: Arm Pain Skin: No Symptoms Reported Neurological: No Symptoms Reported - Physical Exam Vital Signs: Temperature 98.3 F Pulse Rate [Right] 72 Pulse Rate 99 Respiratory Rate 18 Blood Pressure [Right Arm] 108/59 Blood Pressure 109/68 O2 Sat by Pulse Oximetry 100 Oriented: Normal Eyes: Normal Ear: Normal Nose: Normal Throat: Normal Respiratory: Clear Throughout Cardiovascular: Normal : Normal Auscultation: Bowel Sounds: Normal Palpation: Normal Tenderness: Normal Skin: Normal Musculoskeletal: Left, Arm, Tender Psychiatric: Normal Mood Description: Calm Speech Pattern: Clear, Appropriate - Assessment/Plan (1) Acute deep vein thrombosis of left upper extremity Qualifiers: Affected thrombotic vein of extremity: other upper extremity vein Qualified Code(s): I82.622 - Acute embolism and thrombosis of deep veins of left upper extremity Status: Acute Plan: ADMIT, IV HEPARIN DRIP ON ADMISSION. REPEAT US IN ER, CONTINUE BP MONITORING. VERIFY HOME MEDICATION (2) Lupus Status: Acute (3) Acute basilic vein thrombosis Qualifiers: Laterality: left Qualified Code(s): I82.612 - Acute embolism and thrombosis of superficial veins of left upper extremity Status: Acute - Allergies Allergies/Adverse Reactions: Allergies Allergy/AdvReac Type Severity Reaction Status Date / Time vancomycin Allergy Verified 02/28/20 18:24
[2020-03-07] MEDS: PERCOCET TAB 5/325 MG PO PRN (20:16)
[2020-03-08] MEDS: MORPHINE SULFATE INJ 4 MG IVP PRN ×4 (02:23→15:00)
[2020-03-08] MEDS: MAG-OX TAB PO SCH (06:17)
[2020-03-08] MEDS: HEPARIN SODIUM IN D5W 25,000 UNITS/500 ML BAG IV PRN (06:17)
[2020-03-08] MEDS: NS 1000 ML 1,000 ML IV SCH ×3 (06:17→14:22)
[2020-03-08 06:34] LABS: BASOPHILS # (AUTO) 0.1 X10^3/uL (0.0-0.1); BASOPHILS % (AUTO) 1.8 % (0.2-1.0); EOSINOPHILS % (AUTO) 0.2 % (0.9-2.9); HEMATOCRIT 28.8 % (36.0-47.0); HEMOGLOBIN 9.5 g/dL (12.0-16.0); LYMPHOCYTES # (AUTO) 2.1 X10^3/uL (1.3-2.9); LYMPHOCYTES % (AUTO) 47.1 % (21.0-51.0); MEAN CORPUSCULAR HEMOGLOBIN 32.8 pg (27.0-34.0); MEAN CORPUSCULAR HGB CONC 32.9 g/dL (33.0-35.0); MEAN CORPUSCULAR VOLUME 99.6 fL (80.0-100.0); MEAN PLATELET VOLUME 9.5 fL (7.4-11.0); MONOCYTES # (AUTO) 0.5 x10^3/uL (0.3-0.8); MONOCYTES % (AUTO) 10.7 % (0.0-13.0); NEUTROPHILS # (AUTO) 1.8 x10^3/uL (2.2-4.8); NEUTROPHILS % (AUTO) 40.2 % (42.0-75.0); PLATELET COUNT 279 X10^3/uL (150.0-450.0); RED CELL DISTRIBUTION WIDTH 19.3 % (11.6-16.5); WHITE BLOOD COUNT 4.5 X10^3/uL (3.6-10.0)
[2020-03-08 06:53] LABS: ALANINE AMINOTRANSFERASE 25 Units/L (12-78); ALBUMIN 2.5 g/dL (3.4-5.0); ALKALINE PHOSPHATASE 130 Units/L (46-116); ASPARTATE AMINO TRANSFERASE 26 Units/L (15-37); BLOOD UREA NITROGEN 10 mg/dL (7-18); CALCIUM 7.2 mg/dL (8.5-10.1); CARBON DIOXIDE 21.2 mmol/L (21-32); CHLORIDE 111 mmol/L (98-107); COR CA(FOR HYPOALB) 8.4 mg/dL (8.5-10.1); CREATININE 0.51 mg/dL (0.55-1.02); SODIUM 140 mmol/L (136-145); eGFR NON BLACK RACES > 60 (>60)
[2020-03-08] MEDS: PERCOCET TAB 5/325 MG PO PRN (08:23)
[2020-03-08] MEDS ORDERED: ELIQUIS PO SCH (09:45)
[2020-03-08] MEDS ORDERED: BACTRIM DS TAB PO SCH (10:00)
[2020-03-08 16:22] VITALS: BP 125/80
== END 2020-03-08 17:55 | disposition home or self-care (01) | DRG 301 ==
LOC: ER 17:14 → MED/SURG 03-07 00:54
PROVIDERS: ADMIT Internal Medicine; ATTEND Internal Medicine
DX: Z79.01 Long term (current) use of anticoagulants; Z11.59 Encounter for screening for other viral diseases; I82.622 Acute embolism and thrombosis of deep veins of left upper extremity; M32.8 Other forms of systemic lupus erythematosus; R60.0 Localized edema; M79.602 Pain in left arm; I82.612 Acute embolism and thrombosis of superficial veins of left upper extremity
CPT/HCPCS: 36415; 80053; 83735; 85025; 85610; 85730; 87635; 93971; 96365; 96367; 96374; 96375; 99284; A4216; A4222; J1644; J2270; J2405; J7030

== ENCOUNTER 2021-11-18 22:02 | Inpatient (IN) ==
[2021-11-18 22:17] VITALS: BMI 22.2
--- NOTE | 2021-11-18 22:34 | DR.EXTPAIN ---
HPI Time seen Time Seen by Provider: 11/18/21 22:31 PCP Primary Care Physician: RASHAD REYNOLDS HPI Comment HPI Comment: Worsening cough and sob x several days after having a ct scan last week which showed the 'clot in my rt lung completely cleared"; fever, chills developed over the past few days and she has been unable to sleep x four days per the ; no abd pain, n/v/d; she was bumped up to lovenox 80 but did not have a rf for the 80 mg so thinks she's supposed to drop back down to 60 a day. Complaint/Symptoms Chief Complaint:: PT SPOUSE STATES SHE HAS LUPUS, HE STATES SHE HAS INSOMIA ALSO AND HAS NOT SLEPT IN 4 DAYS. Self Treatment fo Chief Complaint: NUQUIL AT NIGHT. Source History Provided: Family Member Mode of arrival Mode of Arrival: Ambulatory Timing Onset of Chief Complaint: 11/15/21 PMH PMH Past Medical History: Yes Past Medical History: Arthritis Past Medical History Comment: LUPUS Past Surgical History: Yes Surgical History: Past Surgical History Comment: BILATERAL KNEE AND HIP REPLACEMENTS. SURGERY FOR BOWEL OBSTRUCTION. Family History History of Family Medical Conditions: Yes Family Medical History: Diabetes Mellitus Social History Type of Tobacco Use: Cigarettes Do you use any recreational Drugs:: No Lives With: Family Lives Where: Home Infectious screening Have you traveled outside the country in the last 6 months?: No Isolation: Standard ROS Review of Systems Constitutional: See HPI, Fever, Malaise and Fatigue Eyes: No Symptoms Reported ENTM: No Symptoms Reported Respiratoy: Short of Breath Cardiovascular: No Symptoms Reported Gastrointestinal/Abdominal: No Symptoms Reported Genitourinary: No Symptoms Reported Neurological: No Symptoms Reported Musculoskeletal: No Symptoms Reported Integumentary: No Symptoms Reported Hematologic/Lymphatic: No Symptoms Reported Endocrine: No Symptoms Reported Psychiatric: No Symptoms Reported PE Vital Signs Vitals: Temperature 102.9 F Pulse Rate 102 Respiratory Rate 18 Blood Pressure [Right Arm] 125/80 Blood Pressure [Left Arm] 107/60 Blood Pressure 100/65 O2 Sat by Pulse Oximetry 92 General Limitations: No Limitations General Appearance: Alert and In No Apparent Distress Head Head Exam: Normal Inspection Eyes Eye exam: Normal Appearance ENT ENT Exam: Normal Exam Neck Neck Exam: Normal Inspection Chest Chest Inspection: Normal Inspection and Symmetric Chest Wall Rise Respiratory Respiratory Exam: Normal Lung Sounds Bilat Respiratory Exam: Bilateral: Clear to Auscultation Cardiovascular Cardiovascular Exam: Normal Rhythm and Tachycardia Abdominal Exam Abdominal Exam: Normal Inspection, Normal Bowel Sounds and Soft Extremities Extremities Exam: Normal Inspection Back Back Exam: Normal Inspection Neurological Neurological Exam: Alert, Oriented X3 and CN II-XII Intact Psychiatric Psychiatric Exam: Agitated and Anxious Skin Skin Exam: Warm, Dry, Intact and Rash (hyperpigmentation diffusely over face) COURSE Reevaluation 1st: Resolved (hollering out periodically, says she's been doing this x 4 days; no prior hx of this) 2nd: Worsened (wandering around room off balance occasionally calling out, trying to take telemetry off) Consultation Call Returned: 02:25 (Dr Rea accepts admission.) [facility]OR Labs Reviewed Laboratory Results Reviewed?: Yes Result Diagrams: 11/18/21 22:57 11/18/21 22:57 Laboratory: WBC 14.5 X10^3/uL (3.6-10.0) H 11/18/21 22:57 RBC 3.58 X10^6/uL (3.5-5.4) 11/18/21 22:57 Hgb 11.0 g/dL (12.0-16.0) L 11/18/21 22:57 Hct 32.8 % (36.0-47.0) L 11/18/21 22:57 MCV 91.7 fL (80.0-100.0) 11/18/21 22:57 MCH 30.7 pg (27.0-34.0) 11/18/21 22:57 MCHC 33.5 g/dL (33.0-35.0) 11/18/21 22:57 RDW 15.4 % (11.6-16.5) 11/18/21 22:57 Plt Count 245 X10^3/uL (150.0-450.0) 11/18/21 22:57 Plt Count Comment Adequate (ADEQUATE) 11/18/21 22:57 MPV 8.5 fL (7.4-11.0) 11/18/21 22:57 Neut % (Auto) 83.7 % (42.0-75.0) H 11/18/21 22:57 Lymph % (Auto) 8.4 % (21.0-51.0) L 11/18/21 22:57 [place]y % (Auto) 7.1 % (0.0-13.0) 11/18/21 22:57 Eos % (Auto) 0.0 % (0.9-2.9) L 11/18/21 22:57 Baso % (Auto) 0.8 % (0.2-1.0) 11/18/21 22:57 Neut # (Auto) 12.1 x10^3/uL (2.2-4.8) H 11/18/21 22:57 Lymph # (Auto) 1.2 X10^3/uL (1.3-2.9) L 11/18/21 22:57 [place]y # (Auto) 1.0 x10^3/uL (0.3-0.8) H 11/18/21 22:57 Eos # (Auto) 0.0 x10^3/uL (0.0-0.2) 11/18/21 22:57 Baso # (Auto) 0.1 X10^3/uL (0.0-0.1) 11/18/21 22:57 Absolute Nucleated RBC 0.0 /100WBC 11/18/21 22: Plt Clumps, EDTA Rare 11/18/21 22:57 Plt Morphology Comment Normal (NORMAL) 11/18/21 22: RBC Morphology Normal (NORMAL) 11/18/21 22:57 Sample Site [facility] 11/18/21 22:50 ABG pH 7.400 (7.35-7.45) 11/18/21 22:50 ABG pCO2 36.0 mmHg (35.0-45.0) 11/18/21 22:50 ABG pO2 70.0 mmHg (80.0-100.0) L 11/18/21 22:50 ABG HCO3 22.3 mmol/L (22-26) 11/18/21 22:50 ABG O2 Saturation 94.0 % (90-100) 11/18/21 22:50 ABG Base Excess -2.1 mmol/L (-2.0-2.0) L 11/18/21 22:50 Mickey Test N/a 11/18/21 22:50 A-a Gradient 85.0 mmHg 11/18/21 22:50 FiO2 28.0 11/18/21 22:50 Blood Gas Comments Ms/mf 11/18/21 22:50 Sodium 133 mmol/L (136-145) L 11/18/21 22:57 Corrected Sodium TNP 11/18/21 22:57 Potassium 3.4 mmol/L (3.5-5.1) L 11/18/21 22:57 Chloride 95 mmol/L (98-107) L 11/18/21 22:57 Carbon Dioxide 24.8 mmol/L (21-32) 11/18/21 22:57 BUN 11 mg/dL (7-18) 11/18/21 22:57 Creatinine 0.98 mg/dL (0.55-1.02) 11/18/21 22:57 Est GFR (MDRD) Af Amer > 60 (>60) 11/18/21 22:57 Est GFR (MDRD) Non-Af > 60 (>60) 11/18/21 22:57 Glucose 96 mg/dL (65-99) 11/18/21 22:57 Calcium 7.9 mg/dL (8.5-10.1) L 11/18/21 22:57 Corrected Calcium 8.5 mg/dL (8.5-10.1) 11/18/21 22:57 Total Bilirubin 0.50 mg/dL (0.2-1.0) 11/18/21 22:57 AST 34 Units/L (15-37) 11/18/21 22:57 ALT 14 Units/L (12-78) 11/18/21 22:57 Alkaline Phosphatase 93 Units/L (46-116) 11/18/21 22:57 Total Protein 8.2 g/dL (6.4-8.2) 11/18/21 22:57 Albumin 3.3 g/dL (3.4-5.0) L 11/18/21 22:57 Globulin 4.9 g/dL (2.5-4.5) H 11/18/21 22:57 Albumin/Globulin Ratio 0.7 Ratio (1.1-2.1) L 11/18/21 22:57 Specimen Type Clean catch urine 11/19/21 01:07 Urine Color Bloody (YELLOW) 11/19/21 01:07 Urine Appearance Slightly hazy (CLEAR) 11/19/21 01:07 Urine pH 6.0 (5.0 - 8.0) 11/19/21 01:07 Ur Specific [place] 1.010 (1.000-1.030) 11/19/21 01:07 Urine Protein 3+ (NEGATIVE) 11/19/21 01:07 Urine Glucose (UA) Negative (NEGATIVE) 11/19/21 01:07 Urine Ketones 1+ (NEGATIVE) 11/19/21 01:07 Urine Blood 5+ (NEGATIVE) 11/19/21 01:07 Urine Nitrite Negative (NEGATIVE) 11/19/21 01:07 Urine Bilirubin Negative (NEGATIVE) 11/19/21 01:07 Urine Urobilinogen Normal (NORMAL) 11/19/21 01:07 Ur Leukocyte Esterase Negative (NEGATIVE) 11/19/21 01:07 Urine RBC Tntc /HPF (0-3) A 11/19/21 01:07 Urine WBC 0-2 /HPF (0-5) 11/19/21 01:07 Ur Squamous Epith Cells Rare /HPF (NEGATIVE) 11/19/21 01:07 Urine Bacteria Negative /HPF (NEGATIVE) 11/19/21 01:07 Ur Culture Indicated? No/not indicated 11/19/21 01:07 Urine Opiates Screen Negative (NEG=<300) 11/19/21 01:07 Urine Methadone Screen Negative (NEG=<300) 11/19/21 01:07 Ur Barbiturates Screen Negative (NEG=<200) 11/19/21 01:07 Ur Phencyclidine Scrn Negative (NEG=<25) 11/19/21 01:07 Ur Amphetamines Screen Negative (NEG=<1000) 11/19/21 01:07 U Benzodiazepines Scrn Positive (NEG=<200) A 11/19/21 01:07 Urine Cocaine Screen Negative (NEG=<300) 11/19/21 01:07 U Marijuana (THC) Screen Negative (NEG=<50) 11/19/21 01:07 Influenza Type A Ag Negative-presumptive (NEGATIVE) 11/19/21 00:20 Influenza Type B Ag Negative-presumptive (NEGATIVE) 11/19/21 00:20 SARS CoV-2 RNA Rapid PERRY Negative (NEGATIVE) 11/19/21 00:20 XRAY XRAY Interpreted by: Radiologist X-ray Results: CTA: - Scattered areas of ground-glass opacities are noted throughout the right and left lung. This may be due such etiology as, but not limited to the patient's inflammatory process with systemic lupus versus infectious or inflammatory process. - Exam is markedly limited due to bolus timing. There is no evidence of a pulmonary embolism in the main pulmonary artery, right pulmonary artery, and left pulmonary artery. Distal emboli beyond these points can not be accurately assessed on this examination. Please note that this exam is considered markedly limited and therefore close monitoring with follow up imaging may be obtained as a clinically indicated. HEAD CT: THERE IS NO EVIDENCE OF AN ACUTE INTRACRANIAL BLEED. Opioid Opioid Risk Tool Age (Yimi box if 16-45): Yes History of Preadolescent Sexual Abuse: No Total: 1 Total Score Risk Category: Low Risk Copyright: Thang BEEBE predicting aberrant behaviors Diagnosis Discharge Problem: Chronic lupus erythematosus, Sepsis with metabolic encephalopathy, Hypoxia, Acute respiratory infection Sepsis Qualifiers: Sepsis type: sepsis due to unspecified organism Sepsis acute organ dysfunction status: with acute organ dysfunction Severe sepsis acute organ dysfunction type: encephalopathy Severe sepsis shock status: without septic shock Qualified Code(s): A41.9 - Sepsis, unspecified organism Insomnia Qualifiers: Insomnia type: primary Qualified Code(s): F51.01 - Primary insomnia Instructions Forms: [facility] Social Distancing
[2021-11-18] MEDS ORDERED: TYLENOL 500 MG TAB EXTRA STRENGTH PO ONE ×2 (22:36→22:38)
[2021-11-18 22:54] LABS: ABG BASE EXCESS -2.1 mmol/L (-2.0-2.0); ABG HCO3 22.3 mmol/L (22-26)
[2021-11-18] MEDS ORDERED: ATIVAN TAB 1 MG PO STA (23:13)
[2021-11-18] MEDS ORDERED: NS 1,000 ML IV 1,000 ML IV ONE (23:19)
[2021-11-18] MEDS ORDERED: ATIVAN TAB 1 MG ONE (23:22)
[2021-11-18] MEDS ORDERED: NS 1,000 ML IV 1,000 ML ONE (23:22)
[2021-11-18 23:26] LABS: BASOPHILS # (AUTO) 0.1 X10^3/uL (0.0-0.1); BASOPHILS % (AUTO) 0.8 % (0.2-1.0); HEMATOCRIT 32.8 % (36.0-47.0); LYMPHOCYTES # (AUTO) 1.2 X10^3/uL (1.3-2.9); LYMPHOCYTES % (AUTO) 8.4 % (21.0-51.0); MEAN CORPUSCULAR HEMOGLOBIN 30.7 pg (27.0-34.0); MEAN CORPUSCULAR HGB CONC 33.5 g/dL (33.0-35.0); MEAN CORPUSCULAR VOLUME 91.7 fL (80.0-100.0); MEAN PLATELET VOLUME 8.5 fL (7.4-11.0); MONOCYTES % (AUTO) 7.1 % (0.0-13.0); NEUTROPHILS # (AUTO) 12.1 x10^3/uL (2.2-4.8); NEUTROPHILS % (AUTO) 83.7 % (42.0-75.0); RED BLOOD COUNT 3.58 X10^6/uL (3.5-5.4); RED CELL DISTRIBUTION WIDTH 15.4 % (11.6-16.5)
[2021-11-18 23:32] LABS: ALANINE AMINOTRANSFERASE 14 Units/L (12-78); ALBUMIN 3.3 g/dL (3.4-5.0); ALKALINE PHOSPHATASE 93 Units/L (46-116); ASPARTATE AMINO TRANSFERASE 34 Units/L (15-37); BLOOD UREA NITROGEN 11 mg/dL (7-18); CALCIUM 7.9 mg/dL (8.5-10.1); CARBON DIOXIDE 24.8 mmol/L (21-32); CHLORIDE 95 mmol/L (98-107); COR CA(FOR HYPOALB) 8.5 mg/dL (8.5-10.1); CREATININE 0.98 mg/dL (0.55-1.02); SODIUM 133 mmol/L (136-145); TOTAL PROTEIN 8.2 g/dL (6.4-8.2); eGFR NON BLACK RACES > 60 (>60)
[2021-11-18 23:40] LABS: WHITE BLOOD COUNT 14.5 X10^3/uL (3.6-10.0)
[2021-11-18 23:41] LABS: PLATELET MORPHOLOGY COMMENT NORMAL (NORMAL)
--- NOTE | 2021-11-19 00:33 | CT ---
STUDY: CTA CHEST WITH IV CONTRASTCOMPARISON: NoneTECHNIQUE: axial images were acquired of the chest with IV contrast for a CT angiogram. Coronal and sagittal images were provided. All images were reviewed in a variety of windows and levels. 3D 8 mm thick MIPS images were provided.RADIATION REDUCTION TECHNIQUE: Automated exposure control, Adjustment of the mA and/or kV according to patient size, or iterative reconstruction techniques were used. 8 mm thick axial MIPS images were provided.HISTORY: SOB, PE, LUPUSFINDINGS:CHEST:THYROID GLANDS: The thyroid gland is unremarkable.HEART AND VESSELS: The heart size is within normal limits.There is no evidence of pericardial effusion. Thoracic aorta is normal size without evidence of an aneurysm or dissection.Main pulmonary artery size is within normal limits.Exam is markedly limited due to bolus timing. There is no evidence of a pulmonary embolism in the main pulmonary artery, right pulmonary artery, and left pulmonary artery. Distal emboli beyond these points can not be accurately assessed on this examination. Please note that this exam is considered markedly limited and therefore close monitoring with follow up imaging may be obtained as a clinically indicated.LYMPH NODES: There is no evidence of axillary, mediastinal, or hilar lymphadenopathy.AIRWAY: The trachea and mainstem bronchi are patent.No intraluminal lesions are seen.LUNGS: Scattered areas of ground-glass opacities are seen right left lung involving the subpleural surface and major fissures. Slightest thisESOPHAGUS: The esophagus is grossly unremarkable.BONES: The visualized bones demonstrate degenerative changes. There are no concerning lytic or blastic lesions identified.UPPER ABDOMINAL STRUCTURES: The visualized upper abdominal structures are unremarkable.IMPRESSSION:- Scattered areas of ground-glass opacities are noted throughout the right and left lung. This may be due such etiology as, but not limited to the patient's inflammatory process with systemic lupus versus infectious or inflammatory process.- Exam is markedly limited due to bolus timing. There is no evidence of a pulmonary embolism in the main pulmonary artery, right pulmonary artery, and left pulmonary artery. Distal emboli beyond these points can not be accurately assessed on this examination. Please note that this exam is considered markedly limited and therefore close monitoring with follow up imaging may be obtained as a clinically indicated. Electronically signed by: David Murray (Nov 19, 2021 00:32:12)
[2021-11-19] MEDS ORDERED: MORPHINE SULFATE INJ 2 MG INJ IVP ONE (00:40)
[2021-11-19] MEDS ORDERED: ZOFRAN INJ 4 MG VIAL IVP ONE (00:40)
--- NOTE | 2021-11-19 00:53 | CT ---
STUDY: CT HEAD WITHOUT IV CONTRASTCOMPARISON: NoneTECHNIQUE: axial images were acquired of the head without IV contrast. Coronal and sagittal images were provided. All images were reviewed in a variety of windows and levels.LIMITATIONS: Please note that CT has low sensitivity and accuracy for identifying acute infarction. In addition, there are portions of the brain that are affected by beam hardening artifact which further greatly limits identification of an acute infarct.RADIATION REDUCTION TECHNIQUE: Automated exposure control, Adjustment of the mA and/or kV according to patient size, or iterative reconstruction techniques were used.HISTORY: SLEEP DEPREVATIONFINDINGS:There is no evidence of an acute intracranial bleed.There is no evidence of a mass or midline shift.There is no evidence of an extra-axial fluid collection.The blank-white matter differentiation is within normal limits.The visualized bones are unremarkable.The visualized sinuses are clear.The mastoid air cells are well-aerated.IMPRESSION:THERE IS NO EVIDENCE OF AN ACUTE INTRACRANIAL BLEED Electronically signed by: David Murray (Nov 19, 2021 00:51:45)
[2021-11-19] MEDS ORDERED: MORPHINE SULFATE INJ 2 MG INJ ONE (00:57)
[2021-11-19] MEDS ORDERED: ZOFRAN INJ 4 MG VIAL ONE (00:57)
[2021-11-19 01:42] LABS: BILIRUBIN,URINE NEGATIVE (NEGATIVE); BLOOD/HEMOGLOBIN,URINE 5+ (NEGATIVE); GLUCOSE, URINE NEGATIVE (NEGATIVE); KETONES,URINE 1+ (NEGATIVE); LEUKOCYTE ESTERASE ,URINE NEGATIVE (NEGATIVE); NITRITES,URINE NEGATIVE (NEGATIVE); PROTEIN,URINE 3+ (NEGATIVE); UROBILINOGEN,URINE NORMAL (NORMAL)
[2021-11-19 01:48] LABS: APPEARANCE,URINE SLIGHTLY HAZY (CLEAR); COLOR,URINE BLOODY (YELLOW)
[2021-11-19 01:49] LABS: BACTERIA,URINE NEGATIVE /HPF (NEGATIVE); RBC,URINE TNTC /HPF (0-3); SQUAMOUS EPITHELIAL CELL,UR RARE /HPF (NEGATIVE)
[2021-11-19] MEDS ORDERED: HALDOL INJ IM ONE (02:12)
[2021-11-19] MEDS ORDERED: ZOSYN VIAL 3.375 GRAMS 3.375 G in NS 100 ML IV 100 ML IV ONE (02:23)
[2021-11-19] MEDS ORDERED: ATIVAN INJ 2 MG VIAL IVP PRN (02:25)
[2021-11-19] MEDS ORDERED: HALDOL INJ IM PRN (02:25)
[2021-11-19] MEDS ORDERED: NS 100 ML IV 100 ML ONE (03:24)
[2021-11-19] MEDS ORDERED: ZOSYN VIAL 3.375 GRAMS IV ONE (03:24)
[2021-11-19] MEDS ORDERED: NS 1,000 ML IV 1,000 ML ONE (03:24)
[2021-11-19] MEDS: NS 1,000 ML IV 1,000 ML IV SCH ×4 (03:39→19:37)
[2021-11-19] MEDS: ZOSYN VIAL 3.375 GRAMS 3.375 G in NS 100 ML IV 100 ML IV SCH ×3 (03:42→20:03)
[2021-11-19 05:45] LABS: BASOPHILS % (AUTO) 0.2 % (0.2-1.0); HEMATOCRIT 29.2 % (36.0-47.0); HEMOGLOBIN 9.7 g/dL (12.0-16.0); LYMPHOCYTES # (AUTO) 1.6 X10^3/uL (1.3-2.9); LYMPHOCYTES % (AUTO) 12.9 % (21.0-51.0); MEAN CORPUSCULAR HEMOGLOBIN 30.6 pg (27.0-34.0); MEAN CORPUSCULAR HGB CONC 33.4 g/dL (33.0-35.0); MEAN CORPUSCULAR VOLUME 91.6 fL (80.0-100.0); MONOCYTES # (AUTO) 0.9 x10^3/uL (0.3-0.8); MONOCYTES % (AUTO) 7.4 % (0.0-13.0); NEUTROPHILS # (AUTO) 9.8 x10^3/uL (2.2-4.8); NEUTROPHILS % (AUTO) 79.5 % (42.0-75.0); RED BLOOD COUNT 3.18 X10^6/uL (3.5-5.4); RED CELL DISTRIBUTION WIDTH 16.1 % (11.6-16.5); WHITE BLOOD COUNT 12.3 X10^3/uL (3.6-10.0)
[2021-11-19 05:54] LABS: ALANINE AMINOTRANSFERASE 10 Units/L (12-78); ALBUMIN 2.6 g/dL (3.4-5.0); ALKALINE PHOSPHATASE 82 Units/L (46-116); ASPARTATE AMINO TRANSFERASE 32 Units/L (15-37); BLOOD UREA NITROGEN 9 mg/dL (7-18); CALCIUM 7.6 mg/dL (8.5-10.1); CARBON DIOXIDE 24.9 mmol/L (21-32); CHLORIDE 100 mmol/L (98-107); COR CA(FOR HYPOALB) 8.7 mg/dL (8.5-10.1); CREATININE 0.68 mg/dL (0.55-1.02); SODIUM 136 mmol/L (136-145); TOTAL PROTEIN 6.8 g/dL (6.4-8.2); eGFR NON BLACK RACES > 60 (>60)
[2021-11-19] MEDS ORDERED: POTASSIUM CHL 40 MEQ/NS 0.45% 500 ML IV PRN ×2 (06:33→06:47)
[2021-11-19] MEDS ORDERED: MAGNESIUM SULFATE 1 GRAM/100 mL PREMIX 1 G/100 ML BAG IV PRN (06:33)
[2021-11-19] MEDS ORDERED: MICRO K EXTEN CAP 10 MEQ PO PRN ×2 (06:33→06:47)
[2021-11-19] MEDS ORDERED: POTASSIUM CHL 60 MEQ/NS 0.45% 500 ML IV PRN ×2 (06:33→06:47)
[2021-11-19] MEDS ORDERED: POTASSIUM CHLORIDE LIQ 20 MEQ UDC PO PRN ×2 (06:33→06:47)
[2021-11-19] MEDS ORDERED: K-DUR TAB 20 MEQ PO PRN (06:33)
[2021-11-19] MEDS ORDERED: K-RIDER 10 MEQ/NS 100 ML 10 MEQ/100 ML BAG IV PRN (06:33)
[2021-11-19] MEDS ORDERED: KLOR-CON PO PRN ×2 (06:33→06:47)
[2021-11-19] MEDS: K-RIDER 10 MEQ/NS 100 ML 10 MEQ/100 ML BAG IV PRN ×4 (06:58→17:12)
[2021-11-19] MEDS ORDERED: SOLU-Medrol 125 MG VIAL IVP SCH (09:00)
[2021-11-19] MEDS: DUONEB 0.5 MG/3 MG (3 mL) NEB SCH ×4 (09:10→20:25)
--- NOTE | 2021-11-19 10:42 | DR.H&P ---
H&P History & Physical for Day of: H&P Date: 11/19/21 Chief Complaint Chief Complaint: SOB, confusion, poor oral intake Allergies Allergies Allergy/AdvReac Type Severity Reaction Status Date / Time vancomycin Allergy Verified 02/28/20 18:24 History of Present Illness History of Present Illness: Ms. Díaz is a 36y/o female with a PMH of lupus, recent PE and chronic pain and anxiety presented with worsening dyspnea, confusion and poor oral intake. She was recently discharged from [facility] after being treated for pneumonia and flu. She also had a DVT in the left arm couple months ago and has been on Lovenox injections. History was obtained from patient's . reports patient has been sick for the past few months. He states she has no appetite, lost 12 lbs in one month. Denies N/V/D. In the ER, CT-head was negative, CT-chest showed scattered b/l ground glass opacities, no PE noted. She was admitted for lupus flare up and pneumonia. She was started on IV Solumedrol and Zosyn. She is currently on 3L NC. She is complaining of neck and back pain. Labs/imaging reviewed Plan: will add morphine 2mg q4hrs prn for arthritis pain. Continue hydration with NS. Continue IV Zosyn. Replace K as per protocol. Obtain med list and records from [facility]. Decrease Solumedrol to 60 mg IV. Check anemia panel. Will resume home medications after confirming with pharmacy. Wean O2 as tolerated. Monitor AM labs/imaging. Time spent for clinical assessment, reviewing labs/imaging, physical exam, decision making and documentation greater than 75 mins. Past Medical History Past Medical History: Arthritis Additional Medical History: Lupus Past Surgical History Surgical History: Family History Family Medical History: Diabetes Mellitus Social History Type of Tobacco Use: Cigarettes Prescription drug monitoring program results: PDMP reviewed and no concerns identified Medications Home Medications: vancomycin Allergy (Verified 02/28/20 18:24) Labs Result Diagrams: 11/19/21 05:25 11/19/21 05:25 Labs: Laboratory WBC 12.3 X10^3/uL (3.6-10.0) H 11/19/21 05:25 RBC 3.18 X10^6/uL (3.5-5.4) L 11/19/21 05:25 Hgb 9.7 g/dL (12.0-16.0) L 11/19/21 05:25 Hct 29.2 % (36.0-47.0) L 11/19/21 05:25 MCV 91.6 fL (80.0-100.0) 11/19/21 05:25 MCH 30.6 pg (27.0-34.0) 11/19/21 05:25 MCHC 33.4 g/dL (33.0-35.0) 11/19/21 05:25 RDW 16.1 % (11.6-16.5) 11/19/21 05:25 Plt Count 224 X10^3/uL (150.0-450.0) 11/19/21 05:25 Plt Count Comment Adequate (ADEQUATE) 11/18/21 22:57 MPV 8.0 fL (7.4-11.0) 11/19/21 05:25 Neut % (Auto) 79.5 % (42.0-75.0) H 11/19/21 05:25 Lymph % (Auto) 12.9 % (21.0-51.0) L 11/19/21 05:25 [place] % (Auto) 7.4 % (0.0-13.0) 11/19/21 05:25 Eos % (Auto) 0.0 % (0.9-2.9) L 11/19/21 05:25 Baso % (Auto) 0.2 % (0.2-1.0) 11/19/21 05:25 Neut # (Auto) 9.8 x10^3/uL (2.2-4.8) H 11/19/21 05:25 Lymph # (Auto) 1.6 X10^3/uL (1.3-2.9) 11/19/21 05:25 [place] # (Auto) 0.9 x10^3/uL (0.3-0.8) H 11/19/21 05:25 Eos # (Auto) 0.0 x10^3/uL (0.0-0.2) 11/19/21 05:25 Baso # (Auto) 0.0 X10^3/uL (0.0-0.1) 11/19/21 05:25 Absolute Nucleated RBC 0.1 /100WBC 11/19/21 05:25 Plt Clumps, EDTA Rare 11/18/21 22:57 Plt Morphology Comment Normal (NORMAL) 11/18/21 22:57 RBC Morphology Normal (NORMAL) 11/18/21 22:57 Sample Site [facility] 11/18/21 22:50 ABG pH 7.400 (7.35-7.45) 11/18/21 22:50 ABG pCO2 36.0 mmHg (35.0-45.0) 11/18/21 22:50 ABG pO2 70.0 mmHg (80.0-100.0) L 11/18/21 22:50 ABG HCO3 22.3 mmol/L (22-26) 11/18/21 22:50 ABG O2 Saturation 94.0 % (90-100) 11/18/21 22:50 ABG Base Excess -2.1 mmol/L (-2.0-2.0) L 11/18/21 22:50 Mickey Test N/a 11/18/21 22:50 A-a Gradient 85.0 mmHg 11/18/21 22:50 FiO2 28.0 11/18/21 22:50 Blood Gas Comments Ms/mf 11/18/21 22:50 Sodium 136 mmol/L (136-145) 11/19/21 05:25 Corrected Sodium TNP 11/19/21 05:25 Potassium 3.3 mmol/L (3.5-5.1) L 11/19/21 05:25 Chloride 100 mmol/L (98-107) 11/19/21 05:25 Carbon Dioxide 24.9 mmol/L (21-32) 11/19/21 05:25 BUN 9 mg/dL (7-18) 11/19/21 05:25 Creatinine 0.68 mg/dL (0.55-1.02) 11/19/21 05:25 Est GFR (MDRD) Af Amer > 60 (>60) 11/19/21 05:25 Est GFR (MDRD) Non-Af > 60 (>60) 11/19/21 05:25 Glucose 98 mg/dL (65-99) 11/19/21 05:25 Calcium 7.6 mg/dL (8.5-10.1) L 11/19/21 05:25 Corrected Calcium 8.7 mg/dL (8.5-10.1) 11/19/21 05:25 Magnesium 2.0 mg/dL (1.7-2.9) 11/19/21 05:25 Total Bilirubin 0.50 mg/dL (0.2-1.0) 11/19/21 05:25 AST 32 Units/L (15-37) 11/19/21 05:25 ALT 10 Units/L (12-78) L 11/19/21 05:25 Alkaline Phosphatase 82 Units/L (46-116) 11/19/21 05:25 Total Protein 6.8 g/dL (6.4-8.2) 11/19/21 05:25 Albumin 2.6 g/dL (3.4-5.0) L 11/19/21 05:25 Globulin 4.2 g/dL (2.5-4.5) 11/19/21 05:25 Albumin/Globulin Ratio 0.6 Ratio (1.1-2.1) L 11/19/21 05:25 Specimen Type Clean catch urine 11/19/21 01:07 Urine Color Bloody (YELLOW) 11/19/21 01:07 Urine Appearance Slightly hazy (CLEAR) 11/19/21 01:07 Urine pH 6.0 (5.0 - 8.0) 11/19/21 01:07 Ur Specific [place] 1.010 (1.000-1.030) 11/19/21 01:07 Urine Protein 3+ (NEGATIVE) 11/19/21 01:07 Urine Glucose (UA) Negative (NEGATIVE) 11/19/21 01:07 Urine Ketones 1+ (NEGATIVE) 11/19/21 01:07 Urine Blood 5+ (NEGATIVE) 11/19/21 01:07 Urine Nitrite Negative (NEGATIVE) 11/19/21 01:07 Urine Bilirubin Negative (NEGATIVE) 11/19/21 01:07 Urine Urobilinogen Normal (NORMAL) 11/19/21 01:07 Ur Leukocyte Esterase Negative (NEGATIVE) 11/19/21 01:07 Urine RBC Tntc /HPF (0-3) A 11/19/21 01:07 Urine WBC 0-2 /HPF (0-5) 11/19/21 01:07 Ur Squamous Epith Cells Rare /HPF (NEGATIVE) 11/19/21 01:07 Urine Bacteria Negative /HPF (NEGATIVE) 11/19/21 01:07 Ur Culture Indicated? No/not indicated 11/19/21 01:07 Urine Opiates Screen Negative (NEG=<300) 11/19/21 01:07 Urine Methadone Screen Negative (NEG=<300) 11/19/21 01:07 Ur Barbiturates Screen Negative (NEG=<200) 11/19/21 01:07 Ur Phencyclidine Scrn Negative (NEG=<25) 11/19/21 01:07 Ur Amphetamines Screen Negative (NEG=<1000) 11/19/21 01:07 U Benzodiazepines Scrn Positive (NEG=<200) A 11/19/21 01:07 Urine Cocaine Screen Negative (NEG=<300) 11/19/21 01:07 U Marijuana (THC) Screen Negative (NEG=<50) 11/19/21 01:07 Influenza Type A Ag Negative-presumptive (NEGATIVE) 11/19/21 00:20 Influenza Type B Ag Negative-presumptive (NEGATIVE) 11/19/21 00:20 SARS CoV-2 RNA Rapid PERRY Negative (NEGATIVE) 11/19/21 00:20 Review of Systems Constitutional: Weakness and Malaise Eyes: No Symptoms Reported ENT: No Symptoms Reported Respiratory: Shortness of Breath Gastrointestinal: No Symptoms Reported Genitourinary: No Symptoms Reported Musculoskeletal: Back Pain and Neck Pain Skin: No Symptoms Reported Neurological: Confusion Physical Exam Vital Signs: Temperature 97.5 F Pulse Rate 74 Respiratory Rate 17 Blood Pressure [Right Arm] 125/80 Blood Pressure [Left Arm] 107/60 Blood Pressure 94/55 O2 Sat by Pulse Oximetry 99 Oriented: Unable to test Eyes: Normal Ear: Normal Nose: Normal Throat: Dry Respiratory: Diminished Throughout Cardiovascular: Normal Auscultation: Bowel Sounds: Normal Palpation: Normal Tenderness: Normal Skin: Decreased Turgur Musculoskeletal: Arm, Forearm, Hand, Back:Lumbar and Tender Psychiatric: Anxiety Mood Description: Anxious Affect: Normal Speech Pattern: Clear and Delayed Assessment/Plan (1) Pneumonia: Qualifiers: Laterality: bilateral Lung location: unspecified part of lung Pneumonia type: due to unspecified organism Qualified Code(s): J18.9 - Pne umonia, unspecified organism Status: Acute (2) Sepsis: Qualifiers: Sepsis acute organ dysfunction status: with acute organ dysfunction Sepsis type: sepsis due to unspecified organism Severe sepsis acute organ dysfunction type: encephalopathy Severe sepsis shock status: without septic shock Qualified Code(s): A41.9 - Sepsis, unspecified organism; R65.20 - Severe sepsis without septic shock; G93.40 - Encephalopathy, unspecified Status: Acute (3) AMS (altered mental status): Qualifiers: Altered mental status type: disorientation Qualified Code(s): R41.0 - Disorientation, unspecified Status: Acute (4) Generalized weakness: Status: Acute (5) Dehydration: Status: Acute (6) Acute deep vein thrombosis of left upper extremity: Qualifiers: Affected thrombotic vein of extremity: other upper extremity vein Qualified Code(s): I82.622 - Acute embolism and thrombosis of deep veins of left upper extremity Status: Acute (7) Diffuse pain in left upper extremity: Status: Acute (8) Chronic lupus erythematosus: Status: Acute Review H&P Reviewed: Yes Patient was examined?: Yes
[2021-11-19] MEDS: MORPHINE SULFATE INJ 2 MG INJ IVP PRN ×2 (10:56→19:36)
[2021-11-19 11:24] LABS: IRON 13 ug/dL (50-175)
[2021-11-19] MEDS: ROXICODONE TAB 15 MG PO PRN (13:20)
[2021-11-19] MEDS: FERROUS GLUCONATE PO SCH (19:37)
[2021-11-19] MEDS: LOVENOX INJ 60 MG SYR SC SCH (20:38)
[2021-11-20] MEDS: NS 1,000 ML IV 1,000 ML IV SCH (02:32)
[2021-11-20] MEDS ORDERED: NS 100 ML IV 100 ML ONE (03:29)
[2021-11-20] MEDS: ZOSYN VIAL 3.375 GRAMS 3.375 G in NS 100 ML IV 100 ML IV SCH ×3 (03:30→19:30)
[2021-11-20 06:56] LABS: BASOPHILS % (AUTO) 0.6 % (0.2-1.0); EOSINOPHILS % (AUTO) 0.1 % (0.9-2.9); HEMATOCRIT 28.1 % (36.0-47.0); HEMOGLOBIN 9.8 g/dL (12.0-16.0); LYMPHOCYTES # (AUTO) 0.8 X10^3/uL (1.3-2.9); LYMPHOCYTES % (AUTO) 13.2 % (21.0-51.0); MEAN CORPUSCULAR HEMOGLOBIN 32.8 pg (27.0-34.0); MEAN CORPUSCULAR VOLUME 93.8 fL (80.0-100.0); MEAN PLATELET VOLUME 8.5 fL (7.4-11.0); MONOCYTES # (AUTO) 0.3 x10^3/uL (0.3-0.8); MONOCYTES % (AUTO) 5.3 % (0.0-13.0); NEUTROPHILS # (AUTO) 4.9 x10^3/uL (2.2-4.8); NEUTROPHILS % (AUTO) 80.8 % (42.0-75.0); RED BLOOD COUNT 2.99 X10^6/uL (3.5-5.4); WHITE BLOOD COUNT 6.1 X10^3/uL (3.6-10.0)
[2021-11-20 07:38] LABS: ALANINE AMINOTRANSFERASE 17 Units/L (12-78); ALBUMIN 2.2 g/dL (3.4-5.0); ALKALINE PHOSPHATASE 109 Units/L (46-116); ASPARTATE AMINO TRANSFERASE 37 Units/L (15-37); BLOOD UREA NITROGEN 7 mg/dL (7-18); CALCIUM 7.9 mg/dL (8.5-10.1); CARBON DIOXIDE 18.9 mmol/L (21-32); CHLORIDE 109 mmol/L (98-107); COR CA(FOR HYPOALB) 9.3 mg/dL (8.5-10.1); COR NA(FOR HYPERGLY) 141 mmol/L (136-145); CREATININE 0.47 mg/dL (0.55-1.02); SODIUM 140 mmol/L (136-145); TOTAL PROTEIN 6.3 g/dL (6.4-8.2); eGFR NON BLACK RACES > 60 (>60)
[2021-11-20] MEDS: DUONEB 0.5 MG/3 MG (3 mL) NEB SCH ×4 (08:05→20:38)
--- NOTE | 2021-11-20 08:34 | PCM.PROG ---
Progress Note Progress Note for Day of Date of Exam: 11/20/21 Subjective Subjective: Patient seen at bedside, no acute events overnight. She is more awake and alert this morning, states she feels better. Her pain is controlled. She did not eat much yesterday. Denies N/V/D. Labs reviewed Blood Cx (-) Plan: will change to D5, add Ensure, Encouraged PO intake. Continue IV abx, nebs and IS. Continue Solumedrol. Resume home medications. Continue FD lovenox for DVT. Continue pain control. Patient noted to have low iron, added iron supplementation. Monitor AM labs/imaging. PT/OT as tolerated. Past Medical Family Social History Past Med/Fam/Surg Hx: No changes since H&P Allergies: Allergies vancomycin Allergy (Verified 02/28/20 18:24) Review of Systems ROS: No change since H&P Vital Signs and I&O's Vital Signs: Temperature 97.6 F Pulse Rate 50 Respiratory Rate 16 Blood Pressure [Right Arm] 125/80 Blood Pressure [Left Arm] 107/60 Blood Pressure 122/71 O2 Sat by Pulse Oximetry 97 Intake and Output: Intake & Output 11/17/21 11/18/21 11/19/21 11/20/21 23:59 23:59 23:59 23:59 Intake Total 3446 / 3446 850 / 850 Balance 3446 / 3446 850 / 850 Physical Exam Oriented: Normal Eyes: Normal Ear: Normal Nose: Normal Throat: Dry Respiratory: Generalized and Diminished Cardiovascular: Normal Auscultation: Bowel Sounds: Normal Tenderness: Normal Skin: Decreased Turgur Musculoskeletal: Arm, Forearm, Hand, Back:Lumbar and Tender Psychiatric: Normal Mood Description: Calm Affect: Normal Speech Pattern: Clear and Appropriate Laboratory and Diagnostics Result Diagrams: 11/20/21 05:25 11/20/21 05:25 Labs: 11/18/21 23:40 Blood Blood Culture - Preliminary 11/18/21 23:30 Blood Blood Culture - Preliminary Laboratory WBC 6.1 X10^3/uL (3.6-10.0) 11/20/21 05:25 RBC 2.99 X10^6/uL (3.5-5.4) L 11/20/21 05:25 Hgb 9.8 g/dL (12.0-16.0) L 11/20/21 05:25 Hct 28.1 % (36.0-47.0) L 11/20/21 05:25 MCV 93.8 fL (80.0-100.0) 11/20/21 05:25 MCH 32.8 pg (27.0-34.0) 11/20/21 05:25 MCHC 35.0 g/dL (33.0-35.0) 11/20/21 05:25 RDW 16.0 % (11.6-16.5) 11/20/21 05:25 Plt Count 171 X10^3/uL (150.0-450.0) 11/20/21 05:25 Plt Count Comment Adequate (ADEQUATE) 11/18/21 22:57 MPV 8.5 fL (7.4-11.0) 11/20/21 05:25 Neut % (Auto) 80.8 % (42.0-75.0) H 11/20/21 05:25 Lymph % (Auto) 13.2 % (21.0-51.0) L 11/20/21 05:25 [place] % (Auto) 5.3 % (0.0-13.0) 11/20/21 05:25 Eos % (Auto) 0.1 % (0.9-2.9) L 11/20/21 05:25 Baso % (Auto) 0.6 % (0.2-1.0) 11/20/21 05:25 Neut # (Auto) 4.9 x10^3/uL (2.2-4.8) H 11/20/21 05:25 Lymph # (Auto) 0.8 X10^3/uL (1.3-2.9) L 11/20/21 05:25 [place] # (Auto) 0.3 x10^3/uL (0.3-0.8) 11/20/21 05:25 Eos # (Auto) 0.0 x10^3/uL (0.0-0.2) 11/20/21 05:25 Baso # (Auto) 0.0 X10^3/uL (0.0-0.1) 11/20/21 05:25 Absolute Nucleated RBC 0.0 /100WBC 11/20/21 05:25 Plt Clumps, EDTA Rare 11/18/21 22:57 Plt Morphology Comment Normal (NORMAL) 11/18/21 22:57 RBC Morphology Normal (NORMAL) 11/18/21 22:57 Sample Site [facility] 11/18/21 22:50 ABG pH 7.400 (7.35-7.45) 11/18/21 22:50 ABG pCO2 36.0 mmHg (35.0-45.0) 11/18/21 22:50 ABG pO2 70.0 mmHg (80.0-100.0) L 11/18/21 22:50 ABG HCO3 22.3 mmol/L (22-26) 11/18/21 22:50 ABG O2 Saturation 94.0 % (90-100) 11/18/21 22:50 ABG Base Excess -2.1 mmol/L (-2.0-2.0) L 11/18/21 22:50 Mickey Test N/a 11/18/21 22:50 A-a Gradient 85.0 mmHg 11/18/21 22:50 FiO2 28.0 11/18/21 22:50 Blood Gas Comments Ms/mf 11/18/21 22:50 Sodium 140 mmol/L (136-145) 11/20/21 05:25 Corrected Sodium 141 mmol/L (136-145) 11/20/21 05:25 Potassium 4.5 mmol/L (3.5-5.1) 11/20/21 05:25 Chloride 109 mmol/L (98-107) H 11/20/21 05:25 Carbon Dioxide 18.9 mmol/L (21-32) L 11/20/21 05:25 BUN 7 mg/dL (7-18) 11/20/21 05:25 Creatinine 0.47 mg/dL (0.55-1.02) L 11/20/21 05:25 Est GFR (MDRD) Af Amer > 60 (>60) 11/20/21 05:25 Est GFR (MDRD) Non-Af > 60 (>60) 11/20/21 05:25 Glucose 133 mg/dL (65-99) H 11/20/21 05:25 Calcium 7.9 mg/dL (8.5-10.1) L 11/20/21 05:25 Corrected Calcium 9.3 mg/dL (8.5-10.1) 11/20/21 05:25 Magnesium 2.0 mg/dL (1.7-2.9) 11/19/21 05:25 Iron 13 ug/dL (50-175) L 11/19/21 05:25 Transferrin 175 mg/dL (202-364) L 11/19/21 05:25 Ferritin 215 ng/mL (8-252) 11/19/21 05:25 Total Bilirubin 0.20 mg/dL (0.2-1.0) 11/20/21 05:25 AST 37 Units/L (15-37) 11/20/21 05:25 ALT 17 Units/L (12-78) 11/20/21 05:25 Alkaline Phosphatase 109 Units/L (46-116) 11/20/21 05:25 Total Protein 6.3 g/dL (6.4-8.2) L 11/20/21 05:25 Albumin 2.2 g/dL (3.4-5.0) L 11/20/21 05:25 Globulin 4.1 g/dL (2.5-4.5) 11/20/21 05:25 Albumin/Globulin Ratio 0.5 Ratio (1.1-2.1) L 11/20/21 05:25 Vitamin B12 489 pg/mL (193-986) 11/19/21 05:25 Folate > 20.0 ng/mL (>8.6) 11/19/21 05:25 Specimen Type Clean catch urine 11/19/21 01:07 Urine Color Bloody (YELLOW) 11/19/21 01:07 Urine Appearance Slightly hazy (CLEAR) 11/19/21 01:07 Urine pH 6.0 (5.0 - 8.0) 11/19/21 01:07 Ur Specific [place] 1.010 (1.000-1.030) 11/19/21 01:07 Urine Protein 3+ (NEGATIVE) 11/19/21 01:07 Urine Glucose (UA) Negative (NEGATIVE) 11/19/21 01:07 Urine Ketones 1+ (NEGATIVE) 11/19/21 01:07 Urine Blood 5+ (NEGATIVE) 11/19/21 01:07 Urine Nitrite Negative (NEGATIVE) 11/19/21 01:07 Urine Bilirubin Negative (NEGATIVE) 11/19/21 01:07 Urine Urobilinogen Normal (NORMAL) 11/19/21 01:07 Ur Leukocyte Esterase Negative (NEGATIVE) 11/19/21 01:07 Urine RBC Tntc /HPF (0-3) A 11/19/21 01:07 Urine WBC 0-2 /HPF (0-5) 11/19/21 01:07 Ur Squamous Epith Cells Rare /HPF (NEGATIVE) 11/19/21 01:07 Urine Bacteria Negative /HPF (NEGATIVE) 11/19/21 01:07 Ur Culture Indicated? No/not indicated 11/19/21 01:07 Urine Opiates Screen Negative (NEG=<300) 11/19/21 01:07 Urine Methadone Screen Negative (NEG=<300) 11/19/21 01:07 Ur Barbiturates Screen Negative (NEG=<200) 11/19/21 01:07 Ur Phencyclidine Scrn Negative (NEG=<25) 11/19/21 01:07 Ur Amphetamines Screen Negative (NEG=<1000) 11/19/21 01:07 U Benzodiazepines Scrn Positive (NEG=<200) A 11/19/21 01:07 Urine Cocaine Screen Negative (NEG=<300) 11/19/21 01:07 U Marijuana (THC) Screen Negative (NEG=<50) 11/19/21 01:07 Influenza Type A Ag Negative-presumptive (NEGATIVE) 11/19/21 00:20 Influenza Type B Ag Negative-presumptive (NEGATIVE) 11/19/21 00:20 SARS CoV-2 RNA Rapid PERRY Negative (NEGATIVE) 11/19/21 00:20 Plan (1) Pneumonia: Status: Acute Qualifiers: Laterality: bilateral Lung location: unspecified part of lung Pneumonia type: due to unspecified organism Qualified Code(s): J18.9 - Pneumonia, unspecified organism (2) Sepsis: Status: Acute Qualifiers: Sepsis acute organ dysfunction status: with acute organ dysfunction Sepsis type: sepsis due to unspecified organism Severe sepsis acute organ dysfunction type: encephalopathy Severe sepsis shock status: without septic shock Qualified Code(s): A41.9 - Sepsis, unspecified organism; R65.20 - Severe sepsis without septic shock; G93.40 - Encephalopathy, unspecified (3) AMS (altered mental status): Status: Acute Qualifiers: Altered mental status type: disorientation Qualified Code(s): R41.0 - Disorientation, unspecified (4) Generalized weakness: Status: Acute (5) Dehydration: Status: Acute (6) Acute deep vein thrombosis of left upper extremity: Status: Acute Qualifiers: Affected thrombotic vein of extremity: other upper extremity vein Qualified Code(s): I82.622 - Acute embolism and thrombosis of deep veins of left upper extremity (7) Diffuse pain in left upper extremity: Status: Acute (8) Chronic lupus erythematosus: Status: Acute
[2021-11-20] MEDS: D5W 1,000 ML IV 1,000 ML IV SCH ×2 (08:38→17:08)
[2021-11-20] MEDS: FERROUS GLUCONATE PO SCH ×3 (08:38→18:25)
[2021-11-20] MEDS: LOVENOX INJ 60 MG SYR SC SCH ×2 (08:38→20:01)
[2021-11-20] MEDS ORDERED: SOLU-Medrol 125 MG VIAL IVP SCH (09:00)
[2021-11-20] MEDS: ROXICODONE TAB 15 MG PO PRN ×2 (10:38→22:08)
[2021-11-20] MEDS: PATIENT'S HOME MEDICATION (Mycophenolate Mofetil 500 mg tablet) PO SCH ×2 (12:28→20:03)
[2021-11-20] MEDS: MORPHINE SULFATE INJ 2 MG INJ IVP PRN (13:00)
[2021-11-21] MEDS: D5W 1,000 ML IV 1,000 ML IV SCH ×3 (01:05→18:57)
[2021-11-21] MEDS: ZOSYN VIAL 3.375 GRAMS 3.375 G in NS 100 ML IV 100 ML IV SCH ×3 (03:21→19:43)
[2021-11-21] MEDS: MORPHINE SULFATE INJ 2 MG INJ IVP PRN (04:45)
[2021-11-21] MEDS: FERROUS GLUCONATE PO SCH ×2 (06:05→18:57)
[2021-11-21 06:09] LABS: BASOPHILS # (AUTO) 0.1 X10^3/uL (0.0-0.1); BASOPHILS % (AUTO) 0.5 % (0.2-1.0); EOSINOPHILS % (AUTO) 0.1 % (0.9-2.9); HEMATOCRIT 27.7 % (36.0-47.0); HEMOGLOBIN 9.2 g/dL (12.0-16.0); LYMPHOCYTES # (AUTO) 1.1 X10^3/uL (1.3-2.9); LYMPHOCYTES % (AUTO) 7.2 % (21.0-51.0); MEAN CORPUSCULAR HEMOGLOBIN 31.6 pg (27.0-34.0); MEAN CORPUSCULAR HGB CONC 33.4 g/dL (33.0-35.0); MEAN CORPUSCULAR VOLUME 94.6 fL (80.0-100.0); MEAN PLATELET VOLUME 8.6 fL (7.4-11.0); MONOCYTES # (AUTO) 0.6 x10^3/uL (0.3-0.8); NEUTROPHILS # (AUTO) 13.7 x10^3/uL (2.2-4.8); NEUTROPHILS % (AUTO) 88.2 % (42.0-75.0); RED BLOOD COUNT 2.93 X10^6/uL (3.5-5.4); RED CELL DISTRIBUTION WIDTH 16.6 % (11.6-16.5); WHITE BLOOD COUNT 15.6 X10^3/uL (3.6-10.0)
[2021-11-21 06:25] LABS: ALANINE AMINOTRANSFERASE 14 Units/L (12-78); ALBUMIN 2.4 g/dL (3.4-5.0); ALKALINE PHOSPHATASE 107 Units/L (46-116); ASPARTATE AMINO TRANSFERASE 19 Units/L (15-37); BLOOD UREA NITROGEN 6 mg/dL (7-18); CARBON DIOXIDE 23.8 mmol/L (21-32); CHLORIDE 107 mmol/L (98-107); COR CA(FOR HYPOALB) 9.3 mg/dL (8.5-10.1); SODIUM 139 mmol/L (136-145); TOTAL PROTEIN 6.4 g/dL (6.4-8.2); eGFR NON BLACK RACES > 60 (>60)
[2021-11-21] MEDS: K-DUR TAB 20 MEQ PO PRN (06:34)
[2021-11-21] MEDS: LOVENOX INJ 60 MG SYR SC SCH ×2 (08:21→20:01)
[2021-11-21] MEDS: PATIENT'S HOME MEDICATION (Mycophenolate Mofetil 500 mg tablet) PO SCH ×2 (08:21→20:02)
[2021-11-21] MEDS: DUONEB 0.5 MG/3 MG (3 mL) NEB SCH ×4 (08:38→20:10)
[2021-11-21] MEDS: ROXICODONE TAB 15 MG PO PRN (08:40)
[2021-11-21] MEDS: SOLU-Medrol 125 MG VIAL IVP SCH (09:24)
[2021-11-21] MEDS: COLACE CAP 100 MG PO SCH ×2 (11:00→20:01)
--- NOTE | 2021-11-21 16:00 | PCM.PROG ---
Progress Note Progress Note for Day of Date of Exam: 11/21/21 Subjective Subjective: Patient seen at bedside, no acute events overnight. She is doing well. She has been eating some bites for all her meals as per nursing staff. She also worked with PT which went well. She did sit up on the chair. She states she still has some dizziness when she stands up. Labs reviewed Blood Cx (-) Plan: Continue hydration, encouraged PO intake. Will add fruits and yogurt to each meal. Continue IV abx, nebs and IS. Continue tapering Solumedrol. Continue home medications. Continue FD lovenox for DVT. Continue pain control. Monitor AM labs/imaging. PT/OT as tolerated. Past Medical Family Social History Past Med/Fam/Surg Hx: No changes since H&P Allergies: Allergies vancomycin Allergy (Verified 02/28/20 18:24) Review of Systems ROS: No change since H&P Vital Signs and I&O's Vital Signs: Temperature 98.4 F Pulse Rate 88 Respiratory Rate 12 Blood Pressure [Right Arm] 125/80 Blood Pressure [Left Arm] 107/60 Blood Pressure 125/83 O2 Sat by Pulse Oximetry 95 Intake and Output: Intake & Output 11/18/21 11/19/21 11/20/21 11/21/21 23:59 23:59 23:59 23:59 Intake Total 3446 / 3446 3926 / 3926 588 / 588 Balance 3446 / 3446 3926 / 3926 588 / 588 Physical Exam Oriented: Normal Eyes: Normal Ear: Normal Nose: Normal Throat: Dry Respiratory: Generalized and Diminished Cardiovascular: Normal Auscultation: Bowel Sounds: Normal Tenderness: Normal Skin: Decreased Turgur Musculoskeletal: Arm, Forearm, Hand, Back:Lumbar and Tender Psychiatric: Normal Mood Description: Calm Affect: Normal Speech Pattern: Clear and Appropriate Laboratory and Diagnostics Result Diagrams: 11/21/21 05:29 11/21/21 05:29 Labs: 11/18/21 23:40 Blood Blood Culture - Preliminary 11/18/21 23:30 Blood Blood Culture - Preliminary Laboratory WBC 15.6 X10^3/uL (3.6-10.0) H D 11/21/21 05:29 RBC 2.93 X10^6/uL (3.5-5.4) L 11/21/21 05:29 Hgb 9.2 g/dL (12.0-16.0) L 11/21/21 05:29 Hct 27.7 % (36.0-47.0) L 11/21/21 05:29 MCV 94.6 fL (80.0-100.0) 11/21/21 05:29 MCH 31.6 pg (27.0-34.0) 11/21/21 05:29 MCHC 33.4 g/dL (33.0-35.0) 11/21/21 05:29 RDW 16.6 % (11.6-16.5) H 11/21/21 05:29 Plt Count 251 X10^3/uL (150.0-450.0) 11/21/21 05:29 Plt Count Comment Adequate (ADEQUATE) 11/18/21 22:57 MPV 8.6 fL (7.4-11.0) 11/21/21 05:29 Neut % (Auto) 88.2 % (42.0-75.0) H 11/21/21 05:29 Lymph % (Auto) 7.2 % (21.0-51.0) L 11/21/21 05:29 [place] % (Auto) 4.0 % (0.0-13.0) 11/21/21 05:29 Eos % (Auto) 0.1 % (0.9-2.9) L 11/21/21 05:29 Baso % (Auto) 0.5 % (0.2-1.0) 11/21/21 05:29 Neut # (Auto) 13.7 x10^3/uL (2.2-4.8) H 11/21/21 05:29 Lymph # (Auto) 1.1 X10^3/uL (1.3-2.9) L 11/21/21 05:29 [place] # (Auto) 0.6 x10^3/uL (0.3-0.8) 11/21/21 05:29 Eos # (Auto) 0.0 x10^3/uL (0.0-0.2) 11/21/21 05:29 Baso # (Auto) 0.1 X10^3/uL (0.0-0.1) 11/21/21 05:29 Absolute Nucleated RBC 0.0 /100WBC 11/21/21 05:29 Plt Clumps, EDTA Rare 11/18/21 22:57 Plt Morphology Comment Normal (NORMAL) 11/18/21 22:57 RBC Morphology Normal (NORMAL) 11/18/21 22:57 Sample Site [facility] 11/18/21 22:50 ABG pH 7.400 (7.35-7.45) 11/18/21 22:50 ABG pCO2 36.0 mmHg (35.0-45.0) 11/18/21 22:50 ABG pO2 70.0 mmHg (80.0-100.0) L 11/18/21 22:50 ABG HCO3 22.3 mmol/L (22-26) 11/18/21 22:50 ABG O2 Saturation 94.0 % (90-100) 11/18/21 22:50 ABG Base Excess -2.1 mmol/L (-2.0-2.0) L 11/18/21 22:50 Mickey Test N/a 11/18/21 22:50 A-a Gradient 85.0 mmHg 11/18/21 22:50 FiO2 28.0 11/18/21 22:50 Blood Gas Comments Ms/mf 11/18/21 22:50 Sodium 139 mmol/L (136-145) 11/21/21 05:29 Corrected Sodium TNP 11/21/21 05:29 Potassium 3.6 mmol/L (3.5-5.1) 11/21/21 05:29 Chloride 107 mmol/L (98-107) 11/21/21 05:29 Carbon Dioxide 23.8 mmol/L (21-32) 11/21/21 05:29 BUN 6 mg/dL (7-18) L 11/21/21 05:29 Creatinine 0.60 mg/dL (0.55-1.02) 11/21/21 05:29 Est GFR (MDRD) Af Amer > 60 (>60) 11/21/21 05:29 Est GFR (MDRD) Non-Af > 60 (>60) 11/21/21 05:29 Glucose 108 mg/dL (65-99) H 11/21/21 05:29 Calcium 8.0 mg/dL (8.5-10.1) L 11/21/21 05:29 Corrected Calcium 9.3 mg/dL (8.5-10.1) 11/21/21 05:29 Magnesium 2.0 mg/dL (1.7-2.9) 11/19/21 05:25 Iron 13 ug/dL (50-175) L 11/19/21 05:25 Transferrin 175 mg/dL (202-364) L 11/19/21 05:25 Ferritin 215 ng/mL (8-252) 11/19/21 05:25 Total Bilirubin 0.20 mg/dL (0.2-1.0) 11/21/21 05:29 AST 19 Units/L (15-37) 11/21/21 05:29 ALT 14 Units/L (12-78) 11/21/21 05:29 Alkaline Phosphatase 107 Units/L (46-116) 11/21/21 05:29 Total Protein 6.4 g/dL (6.4-8.2) 11/21/21 05:29 Albumin 2.4 g/dL (3.4-5.0) L 11/21/21 05:29 Globulin 4.0 g/dL (2.5-4.5) 11/21/21 05:29 Albumin/Globulin Ratio 0.6 Ratio (1.1-2.1) L 11/21/21 05:29 Vitamin B12 489 pg/mL (193-986) 11/19/21 05:25 Folate > 20.0 ng/mL (>8.6) 11/19/21 05:25 Specimen Type Clean catch urine 11/19/21 01:07 Urine Color Bloody (YELLOW) 11/19/21 01:07 Urine Appearance Slightly hazy (CLEAR) 11/19/21 01:07 Urine pH 6.0 (5.0 - 8.0) 11/19/21 01:07 Ur Specific [place] 1.010 (1.000-1.030) 11/19/21 01:07 Urine Protein 3+ (NEGATIVE) 11/19/21 01:07 Urine Glucose (UA) Negative (NEGATIVE) 11/19/21 01:07 Urine Ketones 1+ (NEGATIVE) 11/19/21 01:07 Urine Blood 5+ (NEGATIVE) 11/19/21 01:07 Urine Nitrite Negative (NEGATIVE) 11/19/21 01:07 Urine Bilirubin Negative (NEGATIVE) 11/19/21 01:07 Urine Urobilinogen Normal (NORMAL) 11/19/21 01:07 Ur Leukocyte Esterase Negative (NEGATIVE) 11/19/21 01:07 Urine RBC Tntc /HPF (0-3) A 11/19/21 01:07 Urine WBC 0-2 /HPF (0-5) 11/19/21 01:07 Ur Squamous Epith Cells Rare /HPF (NEGATIVE) 11/19/21 01:07 Urine Bacteria Negative /HPF (NEGATIVE) 11/19/21 01:07 Ur Culture Indicated? No/not indicated 11/19/21 01:07 Urine Opiates Screen Negative (NEG=<300) 11/19/21 01:07 Urine Methadone Screen Negative (NEG=<300) 11/19/21 01:07 Ur Barbiturates Screen Negative (NEG=<200) 11/19/21 01:07 Ur Phencyclidine Scrn Negative (NEG=<25) 11/19/21 01:07 Ur Amphetamines Screen Negative (NEG=<1000) 11/19/21 01:07 U Benzodiazepines Scrn Positive (NEG=<200) A 11/19/21 01:07 Urine Cocaine Screen Negative (NEG=<300) 11/19/21 01:07 U Marijuana (THC) Screen Negative (NEG=<50) 11/19/21 01:07 Influenza Type A Ag Negative-presumptive (NEGATIVE) 11/19/21 00:20 Influenza Type B Ag Negative-presumptive (NEGATIVE) 11/19/21 00:20 SARS CoV-2 RNA Rapid PERRY Negative (NEGATIVE) 11/19/21 00:20 Plan (1) Pneumonia: Status: Acute Qualifiers: Laterality: bilateral Lung location: unspecified part of lung Pneumonia type: due to unspecified organism Qualified Code(s): J18.9 - Pneumonia, unspecified organism (2) Sepsis: Status: Acute Qualifiers: Sepsis acute organ dysfunction status: with acute organ dysfunction Sepsis type: sepsis due to unspecified organism Severe sepsis acute organ dysfunction type: encephalopathy Severe sepsis shock status: without septic shock Qualified Code(s): A41.9 - Sepsis, unspecified organism; R65.20 - Severe sepsis without septic shock; G93.40 - Encephalopathy, unspecified (3) AMS (altered mental status): Status: Acute Qualifiers: Altered mental status type: disorientation Qualified Code(s): R41.0 - Disorientation, unspecified (4) Generalized weakness: Status: Acute (5) Dehydration: Status: Acute (6) Acute deep vein thrombosis of left upper extremity: Status: Acute Qualifiers: Affected thrombotic vein of extremity: other upper extremity vein Qualified Code(s): I82.622 - Acute embolism and thrombosis of deep veins of left upper extremity (7) Diffuse pain in left upper extremity: Status: Acute (8) Chronic lupus erythematosus: Status: Acute
[2021-11-21] MEDS ORDERED: MAALOX or MYLANTA PO PRN (18:58)
[2021-11-21] MEDS: REMERON PO SCH (20:02)
[2021-11-22] MEDS: D5W 1,000 ML IV 1,000 ML IV SCH ×4 (02:37→23:32)
[2021-11-22] MEDS: ZOSYN VIAL 3.375 GRAMS 3.375 G in NS 100 ML IV 100 ML IV SCH ×3 (02:37→19:33)
[2021-11-22 05:36] LABS: BASOPHILS # (AUTO) 0.1 X10^3/uL (0.0-0.1); BASOPHILS % (AUTO) 1.1 % (0.2-1.0); HEMATOCRIT 27.8 % (36.0-47.0); HEMOGLOBIN 9.4 g/dL (12.0-16.0); LYMPHOCYTES # (AUTO) 0.9 X10^3/uL (1.3-2.9); MEAN CORPUSCULAR HEMOGLOBIN 31.8 pg (27.0-34.0); MEAN CORPUSCULAR HGB CONC 33.8 g/dL (33.0-35.0); MEAN CORPUSCULAR VOLUME 94.1 fL (80.0-100.0); MEAN PLATELET VOLUME 8.8 fL (7.4-11.0); MONOCYTES # (AUTO) 0.7 x10^3/uL (0.3-0.8); MONOCYTES % (AUTO) 5.3 % (0.0-13.0); NEUTROPHILS # (AUTO) 11.3 x10^3/uL (2.2-4.8); NEUTROPHILS % (AUTO) 86.6 % (42.0-75.0); RED BLOOD COUNT 2.95 X10^6/uL (3.5-5.4); RED CELL DISTRIBUTION WIDTH 16.3 % (11.6-16.5)
[2021-11-22 05:46] LABS: ALANINE AMINOTRANSFERASE 19 Units/L (12-78); ALBUMIN 2.5 g/dL (3.4-5.0); ALKALINE PHOSPHATASE 125 Units/L (46-116); ASPARTATE AMINO TRANSFERASE 38 Units/L (15-37); BLOOD UREA NITROGEN 6 mg/dL (7-18); CALCIUM 8.6 mg/dL (8.5-10.1); CARBON DIOXIDE 25.7 mmol/L (21-32); CHLORIDE 108 mmol/L (98-107); COR CA(FOR HYPOALB) 9.8 mg/dL (8.5-10.1); CREATININE 0.62 mg/dL (0.55-1.02); SODIUM 141 mmol/L (136-145); TOTAL PROTEIN 6.4 g/dL (6.4-8.2); eGFR NON BLACK RACES > 60 (>60)
[2021-11-22] MEDS: FERROUS GLUCONATE PO SCH ×3 (06:24→16:23)
[2021-11-22] MEDS: DUONEB 0.5 MG/3 MG (3 mL) NEB SCH ×4 (08:28→20:45)
[2021-11-22] MEDS: COLACE CAP 100 MG PO SCH ×2 (09:23→20:54)
[2021-11-22] MEDS: SOLU-Medrol 125 MG VIAL IVP SCH (09:24)
[2021-11-22] MEDS: LOVENOX INJ 60 MG SYR SC SCH ×2 (09:24→20:55)
[2021-11-22] MEDS: PATIENT'S HOME MEDICATION (Mycophenolate Mofetil 500 mg tablet) PO SCH ×2 (09:25→20:55)
[2021-11-22] MEDS: MORPHINE SULFATE INJ 2 MG INJ IVP PRN ×2 (10:00→16:30)
--- NOTE | 2021-11-22 10:01 | PCM.PROG ---
Progress Note Progress Note for Day of Date of Exam: 11/22/21 Subjective Subjective: Patient seen at bedside, no events overnight. She is feeling better. She did work with PT yesterday. She is also eating some, able to eat yogurt, fruit and drink Ensure. She states she still feels dizzy when standing up and was feeling short of breath. Her O2 sats have been good. She was placed on 2L NC due to anxiety. She has some dry cough. Denies N/V/D. Labs reviewed Blood Cx (-) Plan: Will repeat CXR. Continue hydration, encouraged PO intake. Continue IV abx, nebs and IS. Add cough medicine. Encouraged IS use. Continue tapering Solumedrol. Continue home medications. Continue FD lovenox for DVT. Continue pain control. Monitor AM labs/imaging. PT/OT as tolerated. Past Medical Family Social History Past Med/Fam/Surg Hx: No changes since H&P Allergies: Allergies vancomycin Allergy (Verified 02/28/20 18:24) Review of Systems ROS: No change since H&P Vital Signs and I&O's Vital Signs: Temperature 98 F Pulse Rate 94 Respiratory Rate 14 Blood Pressure [Right Arm] 125/80 Blood Pressure [Left Arm] 107/60 Blood Pressure 148/92 O2 Sat by Pulse Oximetry 100 Intake and Output: Intake & Output 11/19/21 11/20/21 11/21/21 11/22/21 23:59 23:59 23:59 23:59 Intake Total 3446 / 3446 3926 / 3926 3695 / 3695 899 / 899 Balance 3446 / 3446 3926 / 3926 3695 / 3695 899 / 899 Physical Exam Oriented: Normal Eyes: Normal Ear: Normal Nose: Normal Throat: Dry Respiratory: Generalized and Diminished Cardiovascular: Normal Auscultation: Bowel Sounds: Normal Tenderness: Normal Skin: Decreased Turgur Musculoskeletal: Arm, Forearm, Hand, Back:Lumbar and Tender Psychiatric: Normal Mood Description: Calm Affect: Normal Speech Pattern: Clear and Appropriate Laboratory and Diagnostics Result Diagrams: 11/22/21 04:35 11/22/21 04:35 Labs: 11/18/21 23:40 Blood Blood Culture - Preliminary 11/18/21 23:30 Blood Blood Culture - Preliminary Laboratory WBC 13.0 X10^3/uL (3.6-10.0) H 11/22/21 04:35 RBC 2.95 X10^6/uL (3.5-5.4) L 11/22/21 04:35 Hgb 9.4 g/dL (12.0-16.0) L 11/22/21 04:35 Hct 27.8 % (36.0-47.0) L 11/22/21 04:35 MCV 94.1 fL (80.0-100.0) 11/22/21 04:35 MCH 31.8 pg (27.0-34.0) 11/22/21 04:35 MCHC 33.8 g/dL (33.0-35.0) 11/22/21 04:35 RDW 16.3 % (11.6-16.5) 11/22/21 04:35 Plt Count 252 X10^3/uL (150.0-450.0) 11/22/21 04:35 Plt Count Comment Adequate (ADEQUATE) 11/18/21 22:57 MPV 8.8 fL (7.4-11.0) 11/22/21 04:35 Neut % (Auto) 86.6 % (42.0-75.0) H 11/22/21 04:35 Lymph % (Auto) 7.0 % (21.0-51.0) L 11/22/21 04:35 [place] % (Auto) 5.3 % (0.0-13.0) 11/22/21 04:35 Eos % (Auto) 0.0 % (0.9-2.9) L 11/22/21 04:35 Baso % (Auto) 1.1 % (0.2-1.0) H 11/22/21 04:35 Neut # (Auto) 11.3 x10^3/uL (2.2-4.8) H 11/22/21 04:35 Lymph # (Auto) 0.9 X10^3/uL (1.3-2.9) L 11/22/21 04:35 [place] # (Auto) 0.7 x10^3/uL (0.3-0.8) 11/22/21 04:35 Eos # (Auto) 0.0 x10^3/uL (0.0-0.2) 11/22/21 04:35 Baso # (Auto) 0.1 X10^3/uL (0.0-0.1) 11/22/21 04:35 Absolute Nucleated RBC 0.0 /100WBC 11/22/21 04:35 Plt Clumps, EDTA Rare 11/18/21 22:57 Plt Morphology Comment Normal (NORMAL) 11/18/21 22:57 RBC Morphology Normal (NORMAL) 11/18/21 22:57 Sample Site Lbra 11/18/21 22:50 ABG pH 7.400 (7.35-7.45) 11/18/21 22:50 ABG pCO2 36.0 mmHg (35.0-45.0) 11/18/21 22:50 ABG pO2 70.0 mmHg (80.0-100.0) L 11/18/21 22:50 ABG HCO3 22.3 mmol/L (22-26) 11/18/21 22:50 ABG O2 Saturation 94.0 % (90-100) 11/18/21 22:50 ABG Base Excess -2.1 mmol/L (-2.0-2.0) L 11/18/21 22:50 Mickey Test N/a 11/18/21 22:50 A-a Gradient 85.0 mmHg 11/18/21 22:50 FiO2 28.0 11/18/21 22:50 Blood Gas Comments Ms/mf 11/18/21 22:50 Sodium 141 mmol/L (136-145) 11/22/21 04:35 Corrected Sodium TNP 11/22/21 04:35 Potassium 3.9 mmol/L (3.5-5.1) 11/22/21 04:35 Chloride 108 mmol/L (98-107) H 11/22/21 04:35 Carbon Dioxide 25.7 mmol/L (21-32) 11/22/21 04:35 BUN 6 mg/dL (7-18) L 11/22/21 04:35 Creatinine 0.62 mg/dL (0.55-1.02) 11/22/21 04:35 Est GFR (MDRD) Af Amer > 60 (>60) 11/22/21 04:35 Est GFR (MDRD) Non-Af > 60 (>60) 11/22/21 04:35 Glucose 107 mg/dL (65-99) H 11/22/21 04:35 Calcium 8.6 mg/dL (8.5-10.1) 11/22/21 04:35 Corrected Calcium 9.8 mg/dL (8.5-10.1) 11/22/21 04:35 Magnesium 2.0 mg/dL (1.7-2.9) 11/19/21 05:25 Iron 13 ug/dL (50-175) L 11/19/21 05:25 Transferrin 175 mg/dL (202-364) L 11/19/21 05:25 Ferritin 215 ng/mL (8-252) 11/19/21 05:25 Total Bilirubin 0.20 mg/dL (0.2-1.0) 11/22/21 04:35 AST 38 Units/L (15-37) H 11/22/21 04:35 ALT 19 Units/L (12-78) 11/22/21 04:35 Alkaline Phosphatase 125 Units/L (46-116) H 11/22/21 04:35 Total Protein 6.4 g/dL (6.4-8.2) 11/22/21 04:35 Albumin 2.5 g/dL (3.4-5.0) L 11/22/21 04:35 Globulin 3.9 g/dL (2.5-4.5) 11/22/21 04:35 Albumin/Globulin Ratio 0.6 Ratio (1.1-2.1) L 11/22/21 04:35 Vitamin B12 489 pg/mL (193-986) 11/19/21 05:25 Folate > 20.0 ng/mL (>8.6) 11/19/21 05:25 Specimen Type Clean catch urine 11/19/21 01:07 Urine Color Bloody (YELLOW) 11/19/21 01:07 Urine Appearance Slightly hazy (CLEAR) 11/19/21 01:07 Urine pH 6.0 (5.0 - 8.0) 11/19/21 01:07 Ur Specific [place] 1.010 (1.000-1.030) 11/19/21 01:07 Urine Protein 3+ (NEGATIVE) 11/19/21 01:07 Urine Glucose (UA) Negative (NEGATIVE) 11/19/21 01:07 Urine Ketones 1+ (NEGATIVE) 11/19/21 01:07 Urine Blood 5+ (NEGATIVE) 11/19/21 01:07 Urine Nitrite Negative (NEGATIVE) 11/19/21 01:07 Urine Bilirubin Negative (NEGATIVE) 11/19/21 01:07 Urine Urobilinogen Normal (NORMAL) 11/19/21 01:07 Ur Leukocyte Esterase Negative (NEGATIVE) 11/19/21 01:07 Urine RBC Tntc /HPF (0-3) A 11/19/21 01:07 Urine WBC 0-2 /HPF (0-5) 11/19/21 01:07 Ur Squamous Epith Cells Rare /HPF (NEGATIVE) 11/19/21 01:07 Urine Bacteria Negative /HPF (NEGATIVE) 11/19/21 01:07 Ur Culture Indicated? No/not indicated 11/19/21 01:07 Urine Opiates Screen Negative (NEG=<300) 11/19/21 01:07 Urine Methadone Screen Negative (NEG=<300) 11/19/21 01:07 Ur Barbiturates Screen Negative (NEG=<200) 11/19/21 01:07 Ur Phencyclidine Scrn Negative (NEG=<25) 11/19/21 01:07 Ur Amphetamines Screen Negative (NEG=<1000) 11/19/21 01:07 U Benzodiazepines Scrn Positive (NEG=<200) A 11/19/21 01:07 Urine Cocaine Screen Negative (NEG=<300) 11/19/21 01:07 U Marijuana (THC) Screen Negative (NEG=<50) 11/19/21 01:07 Influenza Type A Ag Negative-presumptive (NEGATIVE) 11/19/21 00:20 Influenza Type B Ag Negative-presumptive (NEGATIVE) 11/19/21 00:20 SARS CoV-2 RNA Rapid PERRY Negative (NEGATIVE) 11/19/21 00:20 Plan (1) Pneumonia: Status: Acute Qualifiers: Laterality: bilateral Lung location: unspecified part of lung Pneumonia type: due to unspecified organism Qualified Code(s): J18.9 - Pneumonia, unspecified organism (2) Sepsis: Status: Acute Qualifiers: Sepsis acute organ dysfunction status: with acute organ dysfunction Sepsis type: sepsis due to unspecified organism Severe sepsis acute organ dysfunction type: encephalopathy Severe sepsis shock status: without septic shock Qualified Code(s): A41.9 - Sepsis, unspecified organism; R65.20 - Severe sepsis without septic shock; G93.40 - Encephalopathy, unspecified (3) AMS (altered mental status): Status: Acute Qualifiers: Altered mental status type: disorientation Qualified Code(s): R41.0 - Disorientation, unspecified (4) Generalized weakness: Status: Acute (5) Dehydration: Status: Acute (6) Acute deep vein thrombosis of left upper extremity: Status: Acute Qualifiers: Affected thrombotic vein of extremity: other upper extremity vein Qualified Code(s): I82.622 - Acute embolism and thrombosis of deep veins of left upper extremity (7) Diffuse pain in left upper extremity: Status: Acute (8) Chronic lupus erythematosus: Status: Acute
[2021-11-22] MEDS ORDERED: TESSALON PERLES PO PRN (10:34)
[2021-11-22] MEDS: PEPCID TAB 20 MG PO SCH (11:58)
[2021-11-22] MEDS: CARAFATE PO SCH ×3 (11:59→20:53)
[2021-11-22] MEDS: ROXICODONE TAB 15 MG PO PRN (12:06)
--- NOTE | 2021-11-22 13:33 | RAD ---
HISTORYPNEUMONIA, HYPOXIA PMH: LUPUS PSH: [employer], ORTHO, HERNIA, CSEC, NIL [employer] AND [employer]EE REPLACEMENTSSTUDYCHEST, 1 [id number] trachea is midline. There is mild cardiomegaly. There is a left-sided Port-A-Cath with the tip in the SVC. There is a small right pleural effusions. There are again seen bilateral patchy alveolar radiopacities with confluent zones in the right upper lobe as well as involving the right lower lobe and the left midlung zone and left upper lobe.IMPRESSIONExtensive multi lobar pneumonia, small right effusion.Electronically signed by: Irish Poole (Nov 22, 2021 13:32:27)
[2021-11-22] MEDS: PULMICORT NEB TX 0.5 MG NEB SCH ×2 (15:16→20:45)
[2021-11-22] MEDS: ZITHROMAX INJ 500 MG VIAL 250 MG in D5W 250 ML IV 250 ML IV SCH (15:43)
[2021-11-22] MEDS: REMERON PO SCH (20:55)
[2021-11-23] MEDS: D5W 1,000 ML IV 1,000 ML IV SCH ×3 (03:00→14:17)
[2021-11-23] MEDS: ZOSYN VIAL 3.375 GRAMS 3.375 G in NS 100 ML IV 100 ML IV SCH ×3 (03:28→18:39)
[2021-11-23] MEDS: MORPHINE SULFATE INJ 2 MG INJ IVP PRN ×4 (03:34→22:52)
[2021-11-23 04:45] LABS: BASOPHILS # (AUTO) 0.1 X10^3/uL (0.0-0.1); BASOPHILS % (AUTO) 1.6 % (0.2-1.0); HEMATOCRIT 28.5 % (36.0-47.0); HEMOGLOBIN 9.8 g/dL (12.0-16.0); LYMPHOCYTES # (AUTO) 1.8 X10^3/uL (1.3-2.9); LYMPHOCYTES % (AUTO) 21.7 % (21.0-51.0); MEAN CORPUSCULAR HEMOGLOBIN 32.1 pg (27.0-34.0); MEAN CORPUSCULAR HGB CONC 34.4 g/dL (33.0-35.0); MEAN CORPUSCULAR VOLUME 93.3 fL (80.0-100.0); MEAN PLATELET VOLUME 8.4 fL (7.4-11.0); MONOCYTES # (AUTO) 0.7 x10^3/uL (0.3-0.8); MONOCYTES % (AUTO) 8.2 % (0.0-13.0); NEUTROPHILS # (AUTO) 5.8 x10^3/uL (2.2-4.8); NEUTROPHILS % (AUTO) 68.5 % (42.0-75.0); RED BLOOD COUNT 3.06 X10^6/uL (3.5-5.4); WHITE BLOOD COUNT 8.4 X10^3/uL (3.6-10.0)
[2021-11-23 04:50] LABS: BLOOD UREA NITROGEN 4 mg/dL (7-18); CALCIUM 8.3 mg/dL (8.5-10.1); CARBON DIOXIDE 29.1 mmol/L (21-32); CHLORIDE 107 mmol/L (98-107); CREATININE 0.67 mg/dL (0.55-1.02); MAGNESIUM 1.8 mg/dL (1.7-2.9); SODIUM 142 mmol/L (136-145); eGFR NON BLACK RACES > 60 (>60)
[2021-11-23] MEDS: CARAFATE PO SCH ×4 (06:04→20:06)
[2021-11-23] MEDS: FERROUS GLUCONATE PO SCH ×2 (06:04→16:50)
[2021-11-23 06:06] LABS: BAND NEUTROPHILS % 1 % (0-10); PLATELET MORPHOLOGY COMMENT NORMAL (NORMAL)
[2021-11-23] MEDS ORDERED: APRESOLINE INJ 20 MG VIAL IVP PRN (08:24)
[2021-11-23] MEDS: COLACE CAP 100 MG PO SCH ×2 (08:37→20:07)
[2021-11-23] MEDS: SOLU-Medrol 125 MG VIAL IVP SCH (08:41)
[2021-11-23] MEDS: PEPCID TAB 20 MG PO SCH (08:42)
[2021-11-23] MEDS: ZITHROMAX INJ 500 MG VIAL 250 MG in D5W 250 ML IV 250 ML IV SCH (08:42)
[2021-11-23] MEDS: LOVENOX INJ 60 MG SYR SC SCH ×2 (08:49→20:07)
[2021-11-23] MEDS ORDERED: ZOFRAN INJ 4 MG VIAL IVP PRN (09:23)
[2021-11-23] MEDS: DUONEB 0.5 MG/3 MG (3 mL) NEB SCH ×4 (09:35→20:20)
[2021-11-23] MEDS: PULMICORT NEB TX 0.5 MG NEB SCH ×2 (09:35→20:20)
[2021-11-23] MEDS: K-RIDER 10 MEQ/NS 100 ML 10 MEQ/100 ML BAG IV PRN (10:08)
[2021-11-23] MEDS: PATIENT'S HOME MEDICATION (Mycophenolate Mofetil 500 mg tablet) PO SCH ×2 (10:08→20:08)
[2021-11-23] MEDS ORDERED: MAGNESIUM SULFATE 1 GRAM/100 mL PREMIX 1 G/100 ML BAG IV PRN (10:26)
[2021-11-23] MEDS: ROXICODONE TAB 15 MG PO PRN (12:15)
--- NOTE | 2021-11-23 13:30 | PCM.PROG ---
Progress Note Progress Note for Day of Date of Exam: 11/23/21 Subjective Subjective: Patient seen at bedside, no events overnight. She reports eating a bit of her meals. She has been drinking Ensure. She continues to work with PT as tolerated. She still has a lot of dry cough, not able to cough up sputum. She is currently on room air. Her BP has been elevated this morning, no prior hx of HTN. She also had some accidents with urinating on the floor and not able to make it to the bathroom in time. Labs reviewed CXR yesterday showed: extensive bilateral multi-lobar pneumonia Blood Cx (-) Plan: Add hydralazine prn. Continue hydration, encouraged PO intake. Continue IV abx Zosyn and Azithromycin, nebs and IS. Encouraged IS use. Continue tapering Solumedrol. Continue home medications. Continue FD lovenox for DVT. Discussed patient to call for help when needs to go to the bathroom, discussed fall precautions. Patient verbalized understanding. Replace K as per protocol. Continue pain control. Monitor AM labs/imaging. PT/OT as tolerated. Past Medical Family Social History Past Med/Fam/Surg Hx: No changes since H&P Allergies: Allergies vancomycin Allergy (Verified 02/28/20 18:24) Review of Systems ROS: No change since H&P Vital Signs and I&O's Vital Signs: Temperature 98.5 F Pulse Rate 135 Respiratory Rate 16 Blood Pressure [Right Arm] 125/80 Blood Pressure [Left Arm] 107/60 Blood Pressure 154/99 O2 Sat by Pulse Oximetry 98 Intake and Output: Intake & Output 11/20/21 11/21/21 11/22/21 11/23/21 23:59 23:59 23:59 23:59 Intake Total 3926 / 3926 3695 / 3695 2849 / 2849 851 / 851 Balance 3926 / 3926 3695 / 3695 2849 / 2849 851 / 851 Physical Exam Oriented: Normal Eyes: Normal Ear: Normal Nose: Normal Throat: Normal Respiratory: Generalized and Diminished Cardiovascular: Normal Auscultation: Bowel Sounds: Normal Tenderness: Normal Skin: Decreased Turgur Musculoskeletal: Arm, Forearm, Hand, Back:Lumbar and Tender Psychiatric: Normal Mood Description: Calm Affect: Normal Speech Pattern: Clear and Appropriate Laboratory and Diagnostics Result Diagrams: 11/23/21 04:05 11/23/21 04:05 Labs: 11/18/21 23:40 Blood Blood Culture - Preliminary 11/18/21 23:30 Blood Blood Culture - Preliminary Laboratory WBC 8.4 X10^3/uL (3.6-10.0) 11/23/21 04:05 RBC 3.06 X10^6/uL (3.5-5.4) L 11/23/21 04:05 Hgb 9.8 g/dL (12.0-16.0) L 11/23/21 04:05 Hct 28.5 % (36.0-47.0) L 11/23/21 04:05 MCV 93.3 fL (80.0-100.0) 11/23/21 04:05 MCH 32.1 pg (27.0-34.0) 11/23/21 04:05 MCHC 34.4 g/dL (33.0-35.0) 11/23/21 04:05 RDW 16.0 % (11.6-16.5) 11/23/21 04:05 Plt Count 254 X10^3/uL (150.0-450.0) 11/23/21 04:05 Plt Count Comment Adequate (ADEQUATE) 11/23/21 04:05 MPV 8.4 fL (7.4-11.0) 11/23/21 04:05 Neut % (Auto) 68.5 % (42.0-75.0) 11/23/21 04:05 Lymph % (Auto) 21.7 % (21.0-51.0) 11/23/21 04:05 [place] % (Auto) 8.2 % (0.0-13.0) 11/23/21 04:05 Eos % (Auto) 0.0 % (0.9-2.9) L 11/23/21 04:05 Baso % (Auto) 1.6 % (0.2-1.0) H 11/23/21 04:05 Neut # (Auto) 5.8 x10^3/uL (2.2-4.8) H 11/23/21 04:05 Lymph # (Auto) 1.8 X10^3/uL (1.3-2.9) 11/23/21 04:05 [place] # (Auto) 0.7 x10^3/uL (0.3-0.8) 11/23/21 04:05 Eos # (Auto) 0.0 x10^3/uL (0.0-0.2) 11/23/21 04:05 Baso # (Auto) 0.1 X10^3/uL (0.0-0.1) 11/23/21 04:05 Absolute Nucleated RBC 0.2 /100WBC 11/23/21 04:05 Total Counted 100 11/23/21 04:05 Neutrophils % (Manual) 72 % (39-76) 11/23/21 04:05 Band Neutrophils % 1 % (0-10) 11/23/21 04:05 Lymphocytes % (Manual) 20 % (13-43) 11/23/21 04:05 Monocytes % (Manual) 7 % (4-9) 11/23/21 04:05 Plt Clumps, EDTA Rare 11/18/21 22:57 Plt Morphology Comment Normal (NORMAL) 11/23/21 04:05 RBC Morphology Normal (NORMAL) 11/23/21 04:05 Sample Site Lbra 11/18/21 22:50 ABG pH 7.400 (7.35-7.45) 11/18/21 22:50 ABG pCO2 36.0 mmHg (35.0-45.0) 11/18/21 22:50 ABG pO2 70.0 mmHg (80.0-100.0) L 11/18/21 22:50 ABG HCO3 22.3 mmol/L (22-26) 11/18/21 22:50 ABG O2 Saturation 94.0 % (90-100) 11/18/21 22:50 ABG Base Excess -2.1 mmol/L (-2.0-2.0) L 11/18/21 22:50 Mickey Test N/a 11/18/21 22:50 A-a Gradient 85.0 mmHg 11/18/21 22:50 FiO2 28.0 11/18/21 22:50 Blood Gas Comments Ms/mf 11/18/21 22:50 Sodium 142 mmol/L (136-145) 11/23/21 04:05 Corrected Sodium TNP 11/23/21 04:05 Potassium 3.3 mmol/L (3.5-5.1) L 11/23/21 04:05 Chloride 107 mmol/L (98-107) 11/23/21 04:05 Carbon Dioxide 29.1 mmol/L (21-32) 11/23/21 04:05 BUN 4 mg/dL (7-18) L 11/23/21 04:05 Creatinine 0.67 mg/dL (0.55-1.02) 11/23/21 04:05 Est GFR (MDRD) Af Amer > 60 (>60) 11/23/21 04:05 Est GFR (MDRD) Non-Af > 60 (>60) 11/23/21 04:05 Glucose 94 mg/dL (65-99) 11/23/21 04:05 Calcium 8.3 mg/dL (8.5-10.1) L 11/23/21 04:05 Corrected Calcium 9.8 mg/dL (8.5-10.1) 11/22/21 04:35 Magnesium 1.8 mg/dL (1.7-2.9) 11/23/21 04:05 Iron 13 ug/dL (50-175) L 11/19/21 05:25 Transferrin 175 mg/dL (202-364) L 11/19/21 05:25 Ferritin 215 ng/mL (8-252) 11/19/21 05:25 Total Bilirubin 0.20 mg/dL (0.2-1.0) 11/22/21 04:35 AST 38 Units/L (15-37) H 11/22/21 04:35 ALT 19 Units/L (12-78) 11/22/21 04:35 Alkaline Phosphatase 125 Units/L (46-116) H 11/22/21 04:35 Total Protein 6.4 g/dL (6.4-8.2) 11/22/21 04:35 Albumin 2.5 g/dL (3.4-5.0) L 11/22/21 04:35 Globulin 3.9 g/dL (2.5-4.5) 11/22/21 04:35 Albumin/Globulin Ratio 0.6 Ratio (1.1-2.1) L 11/22/21 04:35 Vitamin B12 489 pg/mL (193-986) 11/19/21 05:25 Folate > 20.0 ng/mL (>8.6) 11/19/21 05:25 Specimen Type Clean catch urine 11/19/21 01:07 Urine Color Bloody (YELLOW) 11/19/21 01:07 Urine Appearance Slightly hazy (CLEAR) 11/19/21 01:07 Urine pH 6.0 (5.0 - 8.0) 11/19/21 01:07 Ur Specific [place] 1.010 (1.000-1.030) 11/19/21 01:07 Urine Protein 3+ (NEGATIVE) 11/19/21 01:07 Urine Glucose (UA) Negative (NEGATIVE) 11/19/21 01:07 Urine Ketones 1+ (NEGATIVE) 11/19/21 01:07 Urine Blood 5+ (NEGATIVE) 11/19/21 01:07 Urine Nitrite Negative (NEGATIVE) 11/19/21 01:07 Urine Bilirubin Negative (NEGATIVE) 11/19/21 01:07 Urine Urobilinogen Normal (NORMAL) 11/19/21 01:07 Ur Leukocyte Esterase Negative (NEGATIVE) 11/19/21 01:07 Urine RBC Tntc /HPF (0-3) A 11/19/21 01:07 Urine WBC 0-2 /HPF (0-5) 11/19/21 01:07 Ur Squamous Epith Cells Rare /HPF (NEGATIVE) 11/19/21 01:07 Urine Bacteria Negative /HPF (NEGATIVE) 11/19/21 01:07 Ur Culture Indicated? No/not indicated 11/19/21 01:07 Urine Opiates Screen Negative (NEG=<300) 11/19/21 01:07 Urine Methadone Screen Negative (NEG=<300) 11/19/21 01:07 Ur Barbiturates Screen Negative (NEG=<200) 11/19/21 01:07 Ur Phencyclidine Scrn Negative (NEG=<25) 11/19/21 01:07 Ur Amphetamines Screen Negative (NEG=<1000) 11/19/21 01:07 U Benzodiazepines Scrn Positive (NEG=<200) A 11/19/21 01:07 Urine Cocaine Screen Negative (NEG=<300) 11/19/21 01:07 U Marijuana (THC) Screen Negative (NEG=<50) 11/19/21 01:07 Influenza Type A Ag Negative-presumptive (NEGATIVE) 11/19/21 00:20 Influenza Type B Ag Negative-presumptive (NEGATIVE) 11/19/21 00:20 SARS CoV-2 RNA Rapid PERRY Negative (NEGATIVE) 11/19/21 00:20 Plan (1) Pneumonia: Status: Acute Qualifiers: Laterality: bilateral Lung location: unspecified part of lung Pneumonia type: due to unspecified organism Qualified Code(s): J18.9 - Pneumonia, unspecified organism (2) Sepsis: Status: Acute Qualifiers: Sepsis acute organ dysfunction status: with acute organ dysfunction Sepsis type: sepsis due to unspecified organism Severe sepsis acute organ dysfunction type: encephalopathy Severe sepsis shock status: without septic shock Qualified Code(s): A41.9 - Sepsis, unspecified organism; R65.20 - Severe sepsis without septic shock; G93.40 - Encephalopathy, unspecified (3) AMS (altered mental status): Status: Acute Qualifiers: Altered mental status type: disorientation Qualified Code(s): R41.0 - Disorientation, unspecified (4) Generalized weakness: Status: Acute (5) Dehydration: Status: Acute (6) Acute deep vein thrombosis of left upper extremity: Status: Acute Qualifiers: Affected thrombotic vein of extremity: other upper extremity vein Qualified Code(s): I82.622 - Acute embolism and thrombosis of deep veins of left upper extremity (7) Diffuse pain in left upper extremity: Status: Acute (8) Chronic lupus erythematosus: Status: Acute
[2021-11-23] MEDS ORDERED: POTASSIUM CHLORIDE IV NR ×2 (14:00)
[2021-11-23] MEDS ORDERED: NS IV NR ×2 (14:00)
[2021-11-23] MEDS: REMERON PO SCH (20:08)
[2021-11-24] MEDS: D5W 1,000 ML IV 1,000 ML IV SCH ×2 (02:50→04:01)
[2021-11-24] MEDS: ZOSYN VIAL 3.375 GRAMS 3.375 G in NS 100 ML IV 100 ML IV SCH ×3 (02:50→18:30)
[2021-11-24] MEDS: ROXICODONE TAB 15 MG PO PRN ×2 (03:03→16:20)
[2021-11-24 04:25] LABS: BASOPHILS # (AUTO) 0.1 X10^3/uL (0.0-0.1); BASOPHILS % (AUTO) 1.5 % (0.2-1.0); EOSINOPHILS % (AUTO) 0.6 % (0.9-2.9); HEMATOCRIT 31.1 % (36.0-47.0); HEMOGLOBIN 10.7 g/dL (12.0-16.0); LYMPHOCYTES # (AUTO) 2.2 X10^3/uL (1.3-2.9); LYMPHOCYTES % (AUTO) 27.4 % (21.0-51.0); MEAN CORPUSCULAR HEMOGLOBIN 31.8 pg (27.0-34.0); MEAN CORPUSCULAR HGB CONC 34.4 g/dL (33.0-35.0); MEAN CORPUSCULAR VOLUME 92.5 fL (80.0-100.0); MEAN PLATELET VOLUME 8.4 fL (7.4-11.0); MONOCYTES # (AUTO) 0.7 x10^3/uL (0.3-0.8); MONOCYTES % (AUTO) 9.2 % (0.0-13.0); NEUTROPHILS # (AUTO) 4.9 x10^3/uL (2.2-4.8); NEUTROPHILS % (AUTO) 61.3 % (42.0-75.0); RED BLOOD COUNT 3.36 X10^6/uL (3.5-5.4); RED CELL DISTRIBUTION WIDTH 16.4 % (11.6-16.5)
[2021-11-24 04:33] LABS: ALANINE AMINOTRANSFERASE 13 Units/L (12-78); ALBUMIN 2.4 g/dL (3.4-5.0); ALKALINE PHOSPHATASE 114 Units/L (46-116); ASPARTATE AMINO TRANSFERASE 11 Units/L (15-37); BLOOD UREA NITROGEN 5 mg/dL (7-18); CALCIUM 8.6 mg/dL (8.5-10.1); CARBON DIOXIDE 29.5 mmol/L (21-32); CHLORIDE 103 mmol/L (98-107); COR CA(FOR HYPOALB) 9.9 mg/dL (8.5-10.1); CREATININE 0.66 mg/dL (0.55-1.02); SODIUM 139 mmol/L (136-145); TOTAL PROTEIN 6.4 g/dL (6.4-8.2); eGFR NON BLACK RACES > 60 (>60)
[2021-11-24 05:42] LABS: BAND NEUTROPHILS % 2 % (0-10); METAMYELOCYTES % 1
[2021-11-24 05:43] LABS: ANISOCYTOSIS SLIGHT; PLATELET MORPHOLOGY COMMENT NORMAL (NORMAL); POIKILOCYTOSIS 1+; SCHISTOCYTES PRESENT; SPHEROCYTES PRESENT; TARGET CELLS PRESENT
[2021-11-24] MEDS: CARAFATE PO SCH ×4 (05:50→21:51)
[2021-11-24] MEDS: MORPHINE SULFATE INJ 2 MG INJ IVP PRN ×5 (05:51→23:47)
[2021-11-24] MEDS: FERROUS GLUCONATE PO SCH ×2 (06:14→17:28)
[2021-11-24] MEDS: DUONEB 0.5 MG/3 MG (3 mL) NEB SCH ×4 (08:56→20:35)
[2021-11-24] MEDS: PULMICORT NEB TX 0.5 MG NEB SCH ×2 (08:56→20:35)
[2021-11-24] MEDS: SOLU-Medrol 125 MG VIAL IVP SCH (09:40)
[2021-11-24] MEDS: COLACE CAP 100 MG PO SCH ×2 (09:40→21:51)
[2021-11-24] MEDS: PEPCID TAB 20 MG PO SCH (09:40)
[2021-11-24] MEDS: PATIENT'S HOME MEDICATION (Mycophenolate Mofetil 500 mg tablet) PO SCH ×2 (09:41→21:52)
[2021-11-24] MEDS: K-DUR TAB 20 MEQ PO PRN (09:41)
[2021-11-24] MEDS: LOVENOX INJ 60 MG SYR SC SCH ×2 (09:42→21:52)
[2021-11-24] MEDS: ZITHROMAX INJ 500 MG VIAL 250 MG in D5W 250 ML IV 250 ML IV SCH (09:42)
--- NOTE | 2021-11-24 12:34 | PCM.PROG ---
Progress Note Progress Note for Day of Date of Exam: 11/24/21 Subjective Subjective: Patient seen at bedside, no events overnight. She states she feels better. She continues to show improvement with her appetite. She has been working with PT. She still has dry cough, not able to cough up any sputum. She is on room air. BP better today. Labs reviewed Last CXR: extensive bilateral multi-lobar pneumonia Blood Cx (-) Plan: Will DC IVF, encouraged PO intake. Continue IV abx Zosyn and Azithromycin, nebs and IS. Encouraged IS use. Continue tapering Solumedrol. Continue home medications. Continue FD lovenox for DVT. Continue remeron. Walk test for home O2 eval. PT/OT as tolerated. Encouraged ambulation. Possible discharge home tomorrow. Monitor AM labs. Past Medical Family Social History Past Med/Fam/Surg Hx: No changes since H&P Allergies: Allergies vancomycin Allergy (Verified 02/28/20 18:24) Review of Systems ROS: No change since H&P Vital Signs and I&O's Vital Signs: Temperature 97.7 F Pulse Rate 93 Respiratory Rate 20 Blood Pressure [Right Arm] 125/80 Blood Pressure [Left Arm] 107/60 Blood Pressure 103/55 O2 Sat by Pulse Oximetry 98 Intake and Output: Intake & Output 11/21/21 11/22/21 11/23/21 11/24/21 23:59 23:59 23:59 23:59 Intake Total 3695 / 3695 2849 / 2849 3152 / 3152 934 / 934 Balance 3695 / 3695 2849 / 2849 3152 / 3152 934 / 934 Physical Exam Oriented: Normal Eyes: Normal Ear: Normal Nose: Normal Throat: Normal Respiratory: Generalized and Diminished Cardiovascular: Normal Auscultation: Bowel Sounds: Normal Tenderness: Normal Skin: Decreased Turgur Musculoskeletal: Arm, Forearm, Hand and Back:Lumbar Psychiatric: Normal Mood Description: Calm Affect: Normal Speech Pattern: Clear and Appropriate Laboratory and Diagnostics Result Diagrams: 11/24/21 03:50 11/24/21 03:50 Labs: 11/18/21 23:40 Blood Blood Culture - Final 11/18/21 23:30 Blood Blood Culture - Final Laboratory WBC 8.0 X10^3/uL (3.6-10.0) 11/24/21 03:50 RBC 3.36 X10^6/uL (3.5-5.4) L 11/24/21 03:50 Hgb 10.7 g/dL (12.0-16.0) L 11/24/21 03:50 Hct 31.1 % (36.0-47.0) L 11/24/21 03:50 MCV 92.5 fL (80.0-100.0) 11/24/21 03:50 MCH 31.8 pg (27.0-34.0) 11/24/21 03:50 MCHC 34.4 g/dL (33.0-35.0) 11/24/21 03:50 RDW 16.4 % (11.6-16.5) 11/24/21 03:50 Plt Count 245 X10^3/uL (150.0-450.0) 11/24/21 03:50 Plt Count Comment Adequate (ADEQUATE) 11/24/21 03:50 MPV 8.4 fL (7.4-11.0) 11/24/21 03:50 Neut % (Auto) 61.3 % (42.0-75.0) 11/24/21 03:50 Lymph % (Auto) 27.4 % (21.0-51.0) 11/24/21 03:50 Esmeralda % (Auto) 9.2 % (0.0-13.0) 11/24/21 03:50 Eos % (Auto) 0.6 % (0.9-2.9) L 11/24/21 03:50 Baso % (Auto) 1.5 % (0.2-1.0) H 11/24/21 03:50 Neut # (Auto) 4.9 x10^3/uL (2.2-4.8) H 11/24/21 03:50 Lymph # (Auto) 2.2 X10^3/uL (1.3-2.9) 11/24/21 03:50 Esmeralda # (Auto) 0.7 x10^3/uL (0.3-0.8) 11/24/21 03:50 Eos # (Auto) 0.0 x10^3/uL (0.0-0.2) 11/24/21 03:50 Baso # (Auto) 0.1 X10^3/uL (0.0-0.1) 11/24/21 03:50 Absolute Nucleated RBC 0.5 /100WBC 11/24/21 03:50 Total Counted 100 11/24/21 03:50 Neutrophils % (Manual) 54 % (39-76) 11/24/21 03:50 Band Neutrophils % 2 % (0-10) 11/24/21 03:50 Lymphocytes % (Manual) 32 % (13-43) 11/24/21 03:50 Monocytes % (Manual) 11 % (4-9) H 11/24/21 03:50 Metamyelocytes % 1 11/24/21 03:50 Plt Clumps, EDTA Rare 11/18/21 22:57 Plt Morphology Comment Normal (NORMAL) 11/24/21 03:50 RBC Morphology Abnormal (NORMAL) A 11/24/21 03:50 Poikilocytosis 1+ A 11/24/21 03:50 Anisocytosis Slight A 11/24/21 03:50 Spherocytes Present 11/24/21 03:50 Target Cells Present 11/24/21 03:50 Schistocytes Present 11/24/21 03:50 Sample Site Lbra 11/18/21 22:50 ABG pH 7.400 (7.35-7.45) 11/18/21 22:50 ABG pCO2 36.0 mmHg (35.0-45.0) 11/18/21 22:50 ABG pO2 70.0 mmHg (80.0-100.0) L 11/18/21 22:50 ABG HCO3 22.3 mmol/L (22-26) 11/18/21 22:50 ABG O2 Saturation 94.0 % (90-100) 11/18/21 22:50 ABG Base Excess -2.1 mmol/L (-2.0-2.0) L 11/18/21 22:50 Mickey Test N/a 11/18/21 22:50 A-a Gradient 85.0 mmHg 11/18/21 22:50 FiO2 28.0 11/18/21 22:50 Blood Gas Comments Ms/mf 11/18/21 22:50 Sodium 139 mmol/L (136-145) 11/24/21 03:50 Corrected Sodium TNP 11/24/21 03:50 Potassium 3.7 mmol/L (3.5-5.1) 11/24/21 03:50 Chloride 103 mmol/L (98-107) 11/24/21 03:50 Carbon Dioxide 29.5 mmol/L (21-32) 11/24/21 03:50 BUN 5 mg/dL (7-18) L 11/24/21 03:50 Creatinine 0.66 mg/dL (0.55-1.02) 11/24/21 03:50 Est GFR (MDRD) Af Amer > 60 (>60) 11/24/21 03:50 Est GFR (MDRD) Non-Af > 60 (>60) 11/24/21 03:50 Glucose 90 mg/dL (65-99) 11/24/21 03:50 Calcium 8.6 mg/dL (8.5-10.1) 11/24/21 03:50 Corrected Calcium 9.9 mg/dL (8.5-10.1) 11/24/21 03:50 Magnesium 1.8 mg/dL (1.7-2.9) 11/24/21 03:50 Iron 13 ug/dL (50-175) L 11/19/21 05:25 Transferrin 175 mg/dL (202-364) L 11/19/21 05:25 Ferritin 215 ng/mL (8-252) 11/19/21 05:25 Total Bilirubin 0.40 mg/dL (0.2-1.0) 11/24/21 03:50 AST 11 Units/L (15-37) L 11/24/21 03:50 ALT 13 Units/L (12-78) 11/24/21 03:50 Alkaline Phosphatase 114 Units/L (46-116) 11/24/21 03:50 Total Protein 6.4 g/dL (6.4-8.2) 11/24/21 03:50 Albumin 2.4 g/dL (3.4-5.0) L 11/24/21 03:50 Globulin 4.0 g/dL (2.5-4.5) 11/24/21 03:50 Albumin/Globulin Ratio 0.6 Ratio (1.1-2.1) L 11/24/21 03:50 Vitamin B12 489 pg/mL (193-986) 11/19/21 05:25 Folate > 20.0 ng/mL (>8.6) 11/19/21 05:25 Specimen Type Clean catch urine 11/19/21 01:07 Urine Color Bloody (YELLOW) 11/19/21 01:07 Urine Appearance Slightly hazy (CLEAR) 11/19/21 01:07 Urine pH 6.0 (5.0 - 8.0) 11/19/21 01:07 Ur Specific [place] 1.010 (1.000-1.030) 11/19/21 01:07 Urine Protein 3+ (NEGATIVE) 11/19/21 01:07 Urine Glucose (UA) Negative (NEGATIVE) 11/19/21 01:07 Urine Ketones 1+ (NEGATIVE) 11/19/21 01:07 Urine Blood 5+ (NEGATIVE) 11/19/21 01:07 Urine Nitrite Negative (NEGATIVE) 11/19/21 01:07 Urine Bilirubin Negative (NEGATIVE) 11/19/21 01:07 Urine Urobilinogen Normal (NORMAL) 11/19/21 01:07 Ur Leukocyte Esterase Negative (NEGATIVE) 11/19/21 01:07 Urine RBC Tntc /HPF (0-3) A 11/19/21 01:07 Urine WBC 0-2 /HPF (0-5) 11/19/21 01:07 Ur Squamous Epith Cells Rare /HPF (NEGATIVE) 11/19/21 01:07 Urine Bacteria Negative /HPF (NEGATIVE) 11/19/21 01:07 Ur Culture Indicated? No/not indicated 11/19/21 01:07 Urine Opiates Screen Negative (NEG=<300) 11/19/21 01:07 Urine Methadone Screen Negative (NEG=<300) 11/19/21 01:07 Ur Barbiturates Screen Negative (NEG=<200) 11/19/21 01:07 Ur Phencyclidine Scrn Negative (NEG=<25) 11/19/21 01:07 Ur Amphetamines Screen Negative (NEG=<1000) 11/19/21 01:07 U Benzodiazepines Scrn Positive (NEG=<200) A 11/19/21 01:07 Urine Cocaine Screen Negative (NEG=<300) 11/19/21 01:07 U Marijuana (THC) Screen Negative (NEG=<50) 11/19/21 01:07 Influenza Type A Ag Negative-presumptive (NEGATIVE) 11/19/21 00:20 Influenza Type B Ag Negative-presumptive (NEGATIVE) 11/19/21 00:20 SARS CoV-2 RNA Rapid PERRY Negative (NEGATIVE) 11/19/21 00:20 Plan (1) Pneumonia: Status: Acute Qualifiers: Laterality: bilateral Lung location: unspecified part of lung Pneumonia type: due to unspecified organism Qualified Code(s): J18.9 - Pneumonia, unspecified organism (2) Sepsis: Status: Acute Qualifiers: Sepsis acute organ dysfunction status: with acute organ dysfunction Sepsis type: sepsis due to unspecified organism Severe sepsis acute organ dysfunction type: encephalopathy Severe sepsis shock status: without septic shock Qualified Code(s): A41.9 - Sepsis, unspecified organism; R65.20 - Severe sepsis without septic shock; G93.40 - Encephalopathy, unspecified (3) AMS (altered mental status): Status: Acute Qualifiers: Altered mental status type: disorientation Qualified Code(s): R41.0 - Disorientation, unspecified (4) Generalized weakness: Status: Acute (5) Dehydration: Status: Acute (6) Acute deep vein thrombosis of left upper extremity: Status: Acute Qualifiers: Affected thrombotic vein of extremity: other upper extremity vein Qualified Code(s): I82.622 - Acute embolism and thrombosis of deep veins of left upper extremity (7) Diffuse pain in left upper extremity: Status: Acute (8) Chronic lupus erythematosus: Status: Acute
[2021-11-24] MEDS: REMERON PO SCH (21:52)
[2021-11-25 00:03] VITALS: BP 140/78
[2021-11-25] MEDS: ZOSYN VIAL 3.375 GRAMS 3.375 G in NS 100 ML IV 100 ML IV SCH (04:44)
[2021-11-25 05:05] LABS: HEMATOCRIT 32.3 % (36.0-47.0); MONOCYTES # (AUTO) 0.6 x10^3/uL (0.3-0.8); RED BLOOD COUNT 3.51 X10^6/uL (3.5-5.4)
[2021-11-25 05:10] LABS: BLOOD UREA NITROGEN 9 mg/dL (7-18); CALCIUM 8.8 mg/dL (8.5-10.1); CARBON DIOXIDE 28.6 mmol/L (21-32); CHLORIDE 105 mmol/L (98-107); CREATININE 0.56 mg/dL (0.55-1.02); SODIUM 143 mmol/L (136-145); eGFR NON BLACK RACES > 60 (>60)
[2021-11-25 05:12] LABS: BASOPHILS % (AUTO) 0.5 % (0.2-1.0); EOSINOPHILS # (AUTO) 0.1 x10^3/uL (0.0-0.2); EOSINOPHILS % (AUTO) 1.2 % (0.9-2.9); HEMOGLOBIN 10.9 g/dL (12.0-16.0); LYMPHOCYTES # (AUTO) 2.4 X10^3/uL (1.3-2.9); LYMPHOCYTES % (AUTO) 40.1 % (21.0-51.0); MEAN CORPUSCULAR HGB CONC 33.6 g/dL (33.0-35.0); MEAN CORPUSCULAR VOLUME 92.2 fL (80.0-100.0); MEAN PLATELET VOLUME 8.3 fL (7.4-11.0); MONOCYTES % (AUTO) 9.3 % (0.0-13.0); NEUTROPHILS % (AUTO) 48.9 % (42.0-75.0); WHITE BLOOD COUNT 6.1 X10^3/uL (3.6-10.0)
[2021-11-25] MEDS: CARAFATE PO SCH (06:00)
[2021-11-25] MEDS: FERROUS GLUCONATE PO SCH (06:00)
[2021-11-25] MEDS: MORPHINE SULFATE INJ 2 MG INJ IVP PRN ×3 (06:00→11:44)
[2021-11-25] MEDS: ROXICODONE TAB 15 MG PO PRN (06:08)
[2021-11-25] MEDS: SOLU-Medrol 125 MG VIAL IVP SCH (08:35)
[2021-11-25] MEDS: LOVENOX INJ 60 MG SYR SC SCH (08:37)
[2021-11-25] MEDS: COLACE CAP 100 MG PO SCH (08:37)
[2021-11-25] MEDS: PEPCID TAB 20 MG PO SCH (08:40)
[2021-11-25] MEDS: ZITHROMAX INJ 500 MG VIAL 250 MG in D5W 250 ML IV 250 ML IV SCH (08:40)
[2021-11-25] MEDS: PATIENT'S HOME MEDICATION (Mycophenolate Mofetil 500 mg tablet) PO SCH (08:43)
[2021-11-25] MEDS: DUONEB 0.5 MG/3 MG (3 mL) NEB SCH (09:38)
[2021-11-25] MEDS: PULMICORT NEB TX 0.5 MG NEB SCH (09:38)
== END 2021-11-25 12:10 | disposition home or self-care (01) | DRG 871 ==
LOC: ER 22:02 → MED/SURG 11-19 02:25 → ICU 11-19 04:20 → MED/SURG 11-24 15:41
PROVIDERS: ADMIT Family Medicine; ATTEND Family Medicine
DX: I82.622 Acute embolism and thrombosis of deep veins of left upper extremity; Z86.718 Personal history of other venous thrombosis and embolism; R26.89 Other abnormalities of gait and mobility; M32.9 Systemic lupus erythematosus, unspecified; Z20.822 Contact with and (suspected) exposure to COVID-19; R06.89 Other abnormalities of breathing; F41.9 Anxiety disorder, unspecified; G89.29 Other chronic pain; R41.0 Disorientation, unspecified; Z96.643 Presence of artificial hip joint, bilateral; J18.9 Pneumonia, unspecified organism; R53.1 Weakness; R63.4 Abnormal weight loss; G93.40 Encephalopathy, unspecified; R13.19 Other dysphagia; E86.0 Dehydration; A41.9 Sepsis, unspecified organism; Z96.653 Presence of artificial knee joint, bilateral

== ENCOUNTER 2022-10-21 22:08 | Inpatient (IN) ==
--- NOTE | 2022-10-21 22:49 | DR.GENAD ---
HPI Time Seen Time Seen by Provider: 10/21/22 22:48 PCP Primary Care Physician: GAIL Complaint/Symptoms Chief Complaint Doctors Comments: 37 y/o female, ill past 4 days. Having cough, shortness of breath, especially at night, with coughing. Seen at another facility 2 days ago, diagnosed with "double pneumonia" on CT scan. D/c'd on doxycycline, not improving. Pt with a h/o lupus, and RA. States she usually gets admitted when she has pneumonia. Chief Complaint:: PT STATES" I WENT TO [facility] ON SATURDAY BECAUSE I WAS FEELING SOB, THEY DID A CT AND IT SHOWED DOUBLE PNEUMONIA. THEY STARTED MY ON DOXCYCLINE AND SENT ME HOME. I CAN'T BREATH AT NIGHT AND I DON'T FEEL ANY BETTER". Self Treatment fo Chief Complaint: DOXYCYLCINE COVID-19 Coronavirus risk:travel/contact w/high risk person: No Has patient experienced Coronavirus symptoms: No Source History Provided: Patient Mode of Arrival Mode of Arrival: Ambulatory Timing Onset of Chief Complaint: 10/26/22 PMH PMH Past Medical History: Yes Past Medical History: Arthritis Past Medical History Comment: LUPUS Past Surgical History: Yes Surgical History: Family History History of Family Medical Conditions: Yes Family Medical History: Cancer Social History Does patient currently use any type of tobacco product: Yes Type of Tobacco Use: Cigarettes Alcohol Use: None Do you use any recreational Drugs:: No Lives With: Family Lives Where: Home Travel Risk Coronavirus risk:travel/contact w/high risk person: No Has patient experienced Coronavirus symptoms: No Infectious screening In the last 2 months have you had wt loss of >10#?: NO Have you had fever, night sweats or hemotysis?: No Have you traveled outside the country in the last 6 months?: No Isolation: Standard ROS Review of Systems Constitutional: Chills and Fever Eyes: No Symptoms Reported ENTM: Nose Congestion Respiratoy: Productive Cough Cardiovascular: No Symptoms Reported Gastrointestinal/Abdominal: No Symptoms Reported Genitourinary: No Symptoms Reported Neurological: No Symptoms Reported Musculoskeletal: No Symptoms Reported Integumentary: No Symptoms Reported Psychiatric: No Symptoms Reported All Other Systems: Reviewed and Negative PE Vital Signs Vitals: Temperature 98.1 F Pulse Rate 71 Respiratory Rate 20 Blood Pressure [Right Arm] 140/78 Blood Pressure 136/66 O2 Sat by Pulse Oximetry 96 General General Appearance: Alert, In No Apparent Distress and Other (talks well without dyspnea) Eyes Eye exam: PERRL and EOMI ENT ENT Exam: Normal Oropharynx, Mucous Membranes Moist and TM's Normal Bilaterally Neck Neck Exam: Normal Inspection and Full ROM Respiratory Respiratory Exam: Normal Lung Sounds Bilat; negative Accessory Muscle Use or Respiratory Distress Cardiovascular Cardiovascular Exam: Regular Rate, Normal Rhythm and Normal Heart Sounds Abdominal Exam Abdominal Exam: Normal Bowel Sounds and Soft; negative Tenderness Extremities Extremities Exam: Normal Inspection; negative Edema Neurologic Neurological Exam: Alert, Oriented X3 and CN II-XII Intact; negative Motor Sensory Deficit COURSE Treatment Treatment: 37 y/o female , h/o RA, presents with worsening pneumonia. Diagnosed 2 days ago at another facility, has been on doxycycline the past 2 days without help. Pulse ox 96%, in no distress at rest. W/u initiated. CXR - with bilateral increased infiltrates. WBC 11,500, with a left shift, 92% neutrophils, 1% bands. Pt states she usually gets admitted with pneumonia, in view of her underlying SLE/RA. Pt given IV rocephin. Will recommend admission. Discussed with Dr Rea, accepts the admission. Pt currently on prednisone, as well as lovenox. ROR Labs Reviewed Laboratory Results Reviewed?: Yes Result Diagrams: 10/21/22 23:10 10/21/22 23:10 Laboratory: WBC 11.5 X10^3/uL (3.6-10.0) H 10/21/22 23:10 RBC 3.31 X10^6/uL (3.5-5.4) L 10/21/22 23:10 Hgb 10.2 g/dL (12.0-16.0) L 10/21/22 23:10 Hct 29.7 % (36.0-47.0) L 10/21/22 23:10 MCV 89.7 fL (80.0-100.0) 10/21/22 23:10 MCH 30.8 pg (27.0-34.0) 10/21/22 23:10 MCHC 34.3 g/dL (33.0-35.0) 10/21/22 23:10 RDW 15.7 % (11.6-16.5) 10/21/22 23:10 Plt Count 209 X10^3/uL (150.0-450.0) 10/21/22 23:10 Plt Count Comment Adequate (ADEQUATE) 10/21/22 23:10 MPV 8.1 fL (7.4-11.0) 10/21/22 23:10 Neut % (Auto) 93.8 % (42.0-75.0) H 10/21/22 23:10 Lymph % (Auto) 3.2 % (21.0-51.0) L 10/21/22 23:10 [place] % (Auto) 2.8 % (0.0-13.0) 10/21/22 23:10 Eos % (Auto) 0.1 % (0.9-2.9) L 10/21/22 23:10 Baso % (Auto) 0.1 % (0.2-1.0) L 10/21/22 23:10 Neut # (Auto) 10.8 x10^3/uL (2.2-4.8) H 10/21/22 23:10 Lymph # (Auto) 0.4 X10^3/uL (1.3-2.9) L 10/21/22 23:10 [place] # (Auto) 0.3 x10^3/uL (0.3-0.8) 10/21/22 23:10 Eos # (Auto) 0.0 x10^3/uL (0.0-0.2) 10/21/22 23:10 Baso # (Auto) 0.0 X10^3/uL (0.0-0.1) 10/21/22 23:10 Absolute Nucleated RBC 0.0 /100WBC 10/21/22 23:10 Total Counted 100 10/21/22 23:10 Neutrophils % (Manual) 94 % (39-76) H 10/21/22 23:10 Band Neutrophils % 1 % (0-10) 10/21/22 23:10 Lymphocytes % (Manual) 3 % (13-43) L 10/21/22 23:10 Monocytes % (Manual) 2 % (4-9) L 10/21/22 23:10 Plt Morphology Comment Normal (NORMAL) 10/21/22 23:10 RBC Morphology Abnormal (NORMAL) A 10/21/22 23:10 Target Cells Present 10/21/22 23:10 Tear Drop Cells Present 10/21/22 23:10 Ovalocytes Present 10/21/22 23:10 Sodium 134 mmol/L (136-145) L 10/21/22 23:10 Corrected Sodium 136 mmol/L (136-145) 10/21/22 23:10 Potassium 3.6 mmol/L (3.5-5.1) 10/21/22 23:10 Chloride 101 mmol/L (98-107) 10/21/22 23:10 Carbon Dioxide 28.4 mmol/L (21-32) 10/21/22 23:10 BUN 16 mg/dL (7-18) 10/21/22 23:10 Creatinine 0.75 mg/dL (0.55-1.02) 10/21/22 23:10 Est GFR (MDRD) Af Amer > 60 (>60) 10/21/22 23:10 Est GFR (MDRD) Non-Af > 60 (>60) 10/21/22 23:10 Glucose 200 mg/dL (65-99) H 10/21/22 23:10 Lactic Acid 0.7 mmol/L (0.4-2.0) 10/21/22 23:10 Calcium 8.0 mg/dL (8.5-10.1) L 10/21/22 23:10 Corrected Calcium 9.1 mg/dL (8.5-10.1) 10/21/22 23:10 Total Bilirubin 0.40 mg/dL (0.2-1.0) 10/21/22 23:10 AST 30 Units/L (15-37) 10/21/22 23:10 ALT 49 Units/L (12-78) 10/21/22 23:10 Alkaline Phosphatase 102 Units/L (46-116) 10/21/22 23:10 Total Protein 6.7 g/dL (6.4-8.2) 10/21/22 23:10 Albumin 2.6 g/dL (3.4-5.0) L 10/21/22 23:10 Globulin 4.1 g/dL (2.5-4.5) 10/21/22 23:10 Albumin/Globulin Ratio 0.6 Ratio (1.1-2.1) L 10/21/22 23:10 Specimen Type Clean catch urine 10/21/22 23:54 Urine Color Dark yellow (YELLOW) 10/21/22 23:54 Urine Appearance Clear (CLEAR) 10/21/22 23:54 Urine pH 6.5 (5.0 - 8.0) 10/21/22 23:54 Ur Specific [place] 1.020 (1.000-1.030) 10/21/22 23:54 Urine Protein 3+ (NEGATIVE) 10/21/22 23:54 Urine Glucose (UA) Negative (NEGATIVE) 10/21/22 23:54 Urine Ketones Negative (NEGATIVE) 10/21/22 23:54 Urine Blood 5+ (NEGATIVE) 10/21/22 23:54 Urine Nitrite Negative (NEGATIVE) 10/21/22 23:54 Urine Bilirubin Negative (NEGATIVE) 10/21/22 23:54 Urine Urobilinogen Normal (NORMAL) 10/21/22 23:54 Ur Leukocyte Esterase 1+ (NEGATIVE) 10/21/22 23:54 Urine RBC Tntc /HPF (0-3) A 10/21/22 23:54 Urine WBC 3-5 /HPF (0-5) 10/21/22 23:54 Ur Squamous Epith Cells Few /HPF (NEGATIVE) 10/21/22 23:54 Ur Transition Epith Cell Rare /HPF (NEGATIVE) 10/21/22 23:54 Urine Bacteria Negative /HPF (NEGATIVE) 10/21/22 23:54 Ur Culture Indicated? No/not indicated 10/21/22 23:54 SARS-CoV-2 (PCR) Negative (NEGATIVE) 10/21/22 23:01 Influenza Type A (PCR) Negative (NEGATIVE) 10/21/22 23:01 Influenza Type B (PCR) Negative (NEGATIVE) 10/21/22 23:01 RSV (PCR) Negative (NEGATIVE) 10/21/22 23:01 WBC 11.5K, w/a left shift. Swabs negative for covid/flu. XRAY XRAY Interpreted by: Self X-ray Results: + bilateral increased amrkings c/w bilateral pneumonia Opioid Opioid Risk Tool Age (Yimi box if 16-45): Yes History of Preadolescent Sexual Abuse: No Total: 1 Total Score Risk Category: Low Risk Copyright: Thang BEEBE predicting aberrant behaviors Discharge Plan Diagnosis Discharge Problem: Bilateral pneumonia Discharge Plan Patient Disposition: 09 ADMITTED INPATIENT Condition: Stable Orders to Discharge Patient Discharge Orders: Transfer (Routine); Ordered 10/22/22 Ordered By: Edvin Gaspar
[2022-10-21] MEDS ORDERED: NS 1,000 ML IV 1,000 ML IV ONE (22:57)
[2022-10-21] MEDS ORDERED: NS 1,000 ML IV 1,000 ML ONE (23:08)
[2022-10-21 23:33] LABS: HEMOGLOBIN 10.2 g/dL (12.0-16.0)
[2022-10-21 23:36] LABS: BASOPHILS % (AUTO) 0.1 % (0.2-1.0); EOSINOPHILS % (AUTO) 0.1 % (0.9-2.9); HEMATOCRIT 29.7 % (36.0-47.0); LYMPHOCYTES # (AUTO) 0.4 X10^3/uL (1.3-2.9); LYMPHOCYTES % (AUTO) 3.2 % (21.0-51.0); MEAN CORPUSCULAR HEMOGLOBIN 30.8 pg (27.0-34.0); MEAN CORPUSCULAR HGB CONC 34.3 g/dL (33.0-35.0); MEAN CORPUSCULAR VOLUME 89.7 fL (80.0-100.0); MEAN PLATELET VOLUME 8.1 fL (7.4-11.0); MONOCYTES # (AUTO) 0.3 x10^3/uL (0.3-0.8); MONOCYTES % (AUTO) 2.8 % (0.0-13.0); NEUTROPHILS # (AUTO) 10.8 x10^3/uL (2.2-4.8); NEUTROPHILS % (AUTO) 93.8 % (42.0-75.0); RED BLOOD COUNT 3.31 X10^6/uL (3.5-5.4); RED CELL DISTRIBUTION WIDTH 15.7 % (11.6-16.5); WHITE BLOOD COUNT 11.5 X10^3/uL (3.6-10.0)
[2022-10-21 23:42] LABS: ALANINE AMINOTRANSFERASE 49 Units/L (12-78); ALBUMIN 2.6 g/dL (3.4-5.0); ALKALINE PHOSPHATASE 102 Units/L (46-116); ASPARTATE AMINO TRANSFERASE 30 Units/L (15-37); BLOOD UREA NITROGEN 16 mg/dL (7-18); CARBON DIOXIDE 28.4 mmol/L (21-32); CHLORIDE 101 mmol/L (98-107); COR CA(FOR HYPOALB) 9.1 mg/dL (8.5-10.1); COR NA(FOR HYPERGLY) 136 mmol/L (136-145); CREATININE 0.75 mg/dL (0.55-1.02); SODIUM 134 mmol/L (136-145); TOTAL PROTEIN 6.7 g/dL (6.4-8.2); eGFR NON BLACK RACES > 60 (>60)
[2022-10-21 23:47] LABS: LACTIC ACID 0.7 mmol/L (0.4-2.0)
[2022-10-21 23:56] LABS: BAND NEUTROPHILS % 1 % (0-10); PLATELET MORPHOLOGY COMMENT NORMAL (NORMAL)
[2022-10-21 23:57] LABS: OVALOCYTES PRESENT; TARGET CELLS PRESENT; TEAR DROP CELLS PRESENT
[2022-10-21 23:59] LABS: BILIRUBIN,URINE NEGATIVE (NEGATIVE); BLOOD/HEMOGLOBIN,URINE 5+ (NEGATIVE); GLUCOSE, URINE NEGATIVE (NEGATIVE); KETONES,URINE NEGATIVE (NEGATIVE); LEUKOCYTE ESTERASE ,URINE 1+ (NEGATIVE); NITRITES,URINE NEGATIVE (NEGATIVE); PH,URINE 6.5 (5.0 - 8.0); PROTEIN,URINE 3+ (NEGATIVE); UROBILINOGEN,URINE NORMAL (NORMAL)
[2022-10-22] MEDS ORDERED: ROCEPHIN VIAL 1 GRAM 1 G in NS 100 ML IV 100 ML IV ONE (00:14)
[2022-10-22] MEDS ORDERED: ROCEPHIN VIAL 1 GRAM ONE (00:16)
[2022-10-22] MEDS ORDERED: NS 100 ML IV 100 ML ONE (00:16)
[2022-10-22 00:19] LABS: APPEARANCE,URINE CLEAR (CLEAR); BACTERIA,URINE NEGATIVE /HPF (NEGATIVE); COLOR,URINE DARK YELLOW (YELLOW); RBC,URINE TNTC /HPF (0-3); SQUAMOUS EPITHELIAL CELL,UR FEW /HPF (NEGATIVE); TRANSITIONAL EPI CELLS,URINE RARE /HPF (NEGATIVE)
[2022-10-22] MEDS ORDERED: LOVENOX INJ 60 MG SYR SC ONE ×2 (01:17→01:18)
[2022-10-22] MEDS ORDERED: SALINE 3% 15 ML NEB TX ONE (01:35)
--- NOTE | 2022-10-22 01:47 | RAD ---
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 Left Port-A-Cath tip in SVC. The cardiac silhouette is unremarkable. Diffuse bilateral interstitial infiltrates. No pleural effusion or pneumothorax. The bony thorax is unremarkable.IMPRESSIONDiffuse bilateral interstitial infiltrates..Electronically signed by: Emir Drummond (Oct 22, 2022 01:45:57)
[2022-10-22 01:49] VITALS: BMI 22.8
[2022-10-22] MEDS ORDERED: SALINE 3% 15 ML NEB TX NEB ONE (02:03)
[2022-10-22] MEDS ORDERED: ROXICODONE TAB 15 MG ONE (02:17)
[2022-10-22 05:03] LABS: BASOPHILS % (AUTO) 0.5 % (0.2-1.0); HEMATOCRIT 27.6 % (36.0-47.0); HEMOGLOBIN 9.7 g/dL (12.0-16.0); LYMPHOCYTES # (AUTO) 0.5 X10^3/uL (1.3-2.9); LYMPHOCYTES % (AUTO) 6.4 % (21.0-51.0); MEAN CORPUSCULAR HEMOGLOBIN 31.2 pg (27.0-34.0); MEAN CORPUSCULAR VOLUME 89.1 fL (80.0-100.0); MEAN PLATELET VOLUME 8.1 fL (7.4-11.0); MONOCYTES # (AUTO) 0.3 x10^3/uL (0.3-0.8); MONOCYTES % (AUTO) 3.9 % (0.0-13.0); NEUTROPHILS # (AUTO) 7.6 x10^3/uL (2.2-4.8); NEUTROPHILS % (AUTO) 89.2 % (42.0-75.0); RED CELL DISTRIBUTION WIDTH 16.1 % (11.6-16.5); WHITE BLOOD COUNT 8.5 X10^3/uL (3.6-10.0)
[2022-10-22 05:13] LABS: ALANINE AMINOTRANSFERASE 42 Units/L (12-78); ALBUMIN 2.3 g/dL (3.4-5.0); ALKALINE PHOSPHATASE 93 Units/L (46-116); ASPARTATE AMINO TRANSFERASE 26 Units/L (15-37); BLOOD UREA NITROGEN 15 mg/dL (7-18); CALCIUM 7.9 mg/dL (8.5-10.1); CARBON DIOXIDE 24.9 mmol/L (21-32); CHLORIDE 105 mmol/L (98-107); COR CA(FOR HYPOALB) 9.3 mg/dL (8.5-10.1); COR NA(FOR HYPERGLY) 139 mmol/L (136-145); CREATININE 0.54 mg/dL (0.55-1.02); SODIUM 138 mmol/L (136-145); TOTAL PROTEIN 6.3 g/dL (6.4-8.2); eGFR NON BLACK RACES > 60 (>60)
[2022-10-22] MEDS: SOLU-Medrol 40 MG VIAL IVP SCH ×3 (05:41→21:00)
[2022-10-22] MEDS ORDERED: MICRO K EXTEN CAP 10 MEQ PO PRN (05:53)
[2022-10-22] MEDS ORDERED: KLOR-CON PO PRN (05:53)
[2022-10-22] MEDS ORDERED: K-DUR TAB 20 MEQ PO PRN (05:53)
[2022-10-22] MEDS ORDERED: POTASSIUM CHL 60 MEQ/NS 0.45% 500 ML IV PRN (05:53)
[2022-10-22] MEDS ORDERED: K-RIDER 10 MEQ/NS 100 ML 10 MEQ/100 ML BAG IV PRN (05:53)
[2022-10-22] MEDS ORDERED: MAGNESIUM SULFATE 1 GRAM/100 mL PREMIX 1 G/100 ML BAG IV PRN (05:53)
[2022-10-22] MEDS ORDERED: POTASSIUM CHL 40 MEQ/NS 0.45% 500 ML IV PRN (05:53)
[2022-10-22] MEDS ORDERED: POTASSIUM CHLORIDE LIQ 20 MEQ UDC PO PRN (05:53)
[2022-10-22] MEDS: XOPENEX 1.25 MG/3 ML NEBULE NEB SCH ×4 (06:00→20:00)
[2022-10-22] MEDS ORDERED: ROXICODONE TAB 15 MG PO PRN (09:00)
[2022-10-22] MEDS: LOVENOX INJ 60 MG SYR SC SCH ×2 (09:53→21:00)
[2022-10-22] MEDS: VIBRAMYCIN PO SCH ×2 (09:53→21:01)
[2022-10-22] MEDS: ROXICODONE TAB 15 MG PO PRN (15:00)
[2022-10-23] MEDS ORDERED: NS 1,000 ML IV 1,000 ML ONE (02:08)
[2022-10-23] MEDS: ROCEPHIN VIAL 1 GRAM 1 G in NS 100 ML IV 100 ML IV SCH (02:15)
[2022-10-23] MEDS: ROXICODONE TAB 15 MG PO PRN ×2 (02:39→14:37)
[2022-10-23] MEDS: SOLU-Medrol 40 MG VIAL IVP SCH ×3 (05:17→21:14)
[2022-10-23] MEDS: XOPENEX 1.25 MG/3 ML NEBULE NEB SCH ×3 (05:37→21:00)
[2022-10-23 06:17] LABS: BASOPHILS % (AUTO) 0.5 % (0.2-1.0); EOSINOPHILS % (AUTO) 0.1 % (0.9-2.9); HEMATOCRIT 30.2 % (36.0-47.0); HEMOGLOBIN 10.2 g/dL (12.0-16.0); LYMPHOCYTES # (AUTO) 0.8 X10^3/uL (1.3-2.9); LYMPHOCYTES % (AUTO) 13.8 % (21.0-51.0); MEAN CORPUSCULAR HEMOGLOBIN 30.5 pg (27.0-34.0); MEAN CORPUSCULAR HGB CONC 33.7 g/dL (33.0-35.0); MEAN CORPUSCULAR VOLUME 90.5 fL (80.0-100.0); MEAN PLATELET VOLUME 8.8 fL (7.4-11.0); MONOCYTES # (AUTO) 0.2 x10^3/uL (0.3-0.8); MONOCYTES % (AUTO) 2.7 % (0.0-13.0); NEUTROPHILS # (AUTO) 4.9 x10^3/uL (2.2-4.8); NEUTROPHILS % (AUTO) 82.9 % (42.0-75.0); RED BLOOD COUNT 3.33 X10^6/uL (3.5-5.4); RED CELL DISTRIBUTION WIDTH 16.2 % (11.6-16.5); WHITE BLOOD COUNT 5.9 X10^3/uL (3.6-10.0)
[2022-10-23 06:30] LABS: ALANINE AMINOTRANSFERASE 38 Units/L (12-78); ALBUMIN 2.5 g/dL (3.4-5.0); ALKALINE PHOSPHATASE 101 Units/L (46-116); ASPARTATE AMINO TRANSFERASE 23 Units/L (15-37); BLOOD UREA NITROGEN 18 mg/dL (7-18); CALCIUM 8.2 mg/dL (8.5-10.1); CARBON DIOXIDE 22.3 mmol/L (21-32); CHLORIDE 106 mmol/L (98-107); COR CA(FOR HYPOALB) 9.4 mg/dL (8.5-10.1); COR NA(FOR HYPERGLY) 140 mmol/L (136-145); CREATININE 0.58 mg/dL (0.55-1.02); SODIUM 139 mmol/L (136-145); TOTAL PROTEIN 6.6 g/dL (6.4-8.2); eGFR NON BLACK RACES > 60 (>60)
[2022-10-23] MEDS: VIBRAMYCIN PO SCH ×2 (08:51→21:13)
[2022-10-23] MEDS: LOVENOX INJ 60 MG SYR SC SCH ×2 (08:52→21:14)
--- NOTE | 2022-10-23 09:17 | DR.H&P ---
H&P History & Physical for Day of: H&P Date: 10/22/22 Chief Complaint Chief Complaint: Shortness of breath Weakness, Cough Allergies Allergies Allergy/AdvReac Type Severity Reaction Status Date / Time vancomycin Allergy Verified 02/28/20 18:24 History of Present Illness History of Present Illness: Pt is a 37 year old female past medical history of Lupus, Pulmonary embolism, presenting with cough, shortness of breath, and weakness. She reports chills and symptoms started last and progressively worsened. Labs/imaging: Wbc 8.5, Hgb 9.7, Plt 198, Na 138, K 3.3, Creatinine 0.54, Glucose 138, Sputum culture pending, CXR was obtained that revealed: Diffuse bilateral interstitial infiltrates. Will admit for bilateral pneumonia. Start on antibiotics: Rocephin and Doxycycline. Order IV Solumedrol 40mg Q8h. Scheduled bronchodilators. Restart home medication. Hypokalemia on labs, replete per protocol. Continue to closely monitor and follow up labs in the morning. Past Medical History Past Medical History: Arthritis Additional Medical History: Lupus Past Surgical History Surgical History: and Joint Replacement Family History Family Medical History: Cancer Social History Does patient currently use any type of tobacco product: Yes Have you used tobacco products in the last 12 months: Yes Type of Tobacco Use: Cigarettes How many years tobacco product used: 20 Does any household member use tobacco: No Alcohol Use: None Drug Use: None Medications Home Medications: vancomycin Allergy (Verified 02/28/20 18:24) CONTINUE taking the following medications prednisone 20 mg tablet 1 tab PO QDAY 10/22/22 [History] Labs Result Diagrams: 10/23/22 05:17 10/23/22 05:17 Labs: 10/22/22 02:25 Sputum - Expectorated Sputum - Final Laboratory WBC 5.9 X10^3/uL (3.6-10.0) 10/23/22 05:17 RBC 3.33 X10^6/uL (3.5-5.4) L 10/23/22 05:17 Hgb 10.2 g/dL (12.0-16.0) L 10/23/22 05:17 Hct 30.2 % (36.0-47.0) L 10/23/22 05:17 MCV 90.5 fL (80.0-100.0) 10/23/22 05:17 MCH 30.5 pg (27.0-34.0) 10/23/22 05:17 MCHC 33.7 g/dL (33.0-35.0) 10/23/22 05:17 RDW 16.2 % (11.6-16.5) 10/23/22 05:17 Plt Count 215 X10^3/uL (150.0-450.0) 10/23/22 05:17 Plt Count Comment Adequate (ADEQUATE) 10/21/22 23:10 MPV 8.8 fL (7.4-11.0) 10/23/22 05:17 Neut % (Auto) 82.9 % (42.0-75.0) H 10/23/22 05:17 Lymph % (Auto) 13.8 % (21.0-51.0) L 10/23/22 05:17 [place] % (Auto) 2.7 % (0.0-13.0) 10/23/22 05:17 Eos % (Auto) 0.1 % (0.9-2.9) L 10/23/22 05:17 Baso % (Auto) 0.5 % (0.2-1.0) 10/23/22 05:17 Neut # (Auto) 4.9 x10^3/uL (2.2-4.8) H 10/23/22 05:17 Lymph # (Auto) 0.8 X10^3/uL (1.3-2.9) L 10/23/22 05:17 [place] # (Auto) 0.2 x10^3/uL (0.3-0.8) L 10/23/22 05:17 Eos # (Auto) 0.0 x10^3/uL (0.0-0.2) 10/23/22 05:17 Baso # (Auto) 0.0 X10^3/uL (0.0-0.1) 10/23/22 05:17 Absolute Nucleated RBC 0.1 /100WBC 10/23/22 05:17 Total Counted 100 10/21/22 23:10 Neutrophils % (Manual) 94 % (39-76) H 10/21/22 23:10 Band Neutrophils % 1 % (0-10) 10/21/22 23:10 Lymphocytes % (Manual) 3 % (13-43) L 10/21/22 23:10 Monocytes % (Manual) 2 % (4-9) L 10/21/22 23:10 Plt Morphology Comment Normal (NORMAL) 10/21/22 23:10 RBC Morphology Abnormal (NORMAL) A 10/21/22 23:10 Target Cells Present 10/21/22 23:10 Tear Drop Cells Present 10/21/22 23:10 Ovalocytes Present 10/21/22 23:10 Sodium 139 mmol/L (136-145) 10/23/22 05:17 Corrected Sodium 140 mmol/L (136-145) 10/23/22 05:17 Potassium 4.4 mmol/L (3.5-5.1) 10/23/22 05:17 Chloride 106 mmol/L (98-107) 10/23/22 05:17 Carbon Dioxide 22.3 mmol/L (21-32) 10/23/22 05:17 BUN 18 mg/dL (7-18) 10/23/22 05:17 Creatinine 0.58 mg/dL (0.55-1.02) 10/23/22 05:17 Est GFR (MDRD) Af Amer > 60 (>60) 10/23/22 05:17 Est GFR (MDRD) Non-Af > 60 (>60) 10/23/22 05:17 Glucose 158 mg/dL (65-99) H 10/23/22 05:17 POC Glucose (mg/dL) 145 mg/dL (65-99) H 10/23/22 05:16 Lactic Acid 0.7 mmol/L (0.4-2.0) 10/21/22 23:10 Calcium 8.2 mg/dL (8.5-10.1) L 10/23/22 05:17 Corrected Calcium 9.4 mg/dL (8.5-10.1) 10/23/22 05:17 Magnesium 2.4 mg/dL (2.0-2.9) 10/22/22 04:40 Total Bilirubin 0.20 mg/dL (0.2-1.0) 10/23/22 05:17 AST 23 Units/L (15-37) 10/23/22 05:17 ALT 38 Units/L (12-78) 10/23/22 05:17 Alkaline Phosphatase 101 Units/L (46-116) 10/23/22 05:17 Total Protein 6.6 g/dL (6.4-8.2) 10/23/22 05:17 Albumin 2.5 g/dL (3.4-5.0) L 10/23/22 05:17 Globulin 4.1 g/dL (2.5-4.5) 10/23/22 05:17 Albumin/Globulin Ratio 0.6 Ratio (1.1-2.1) L 10/23/22 05:17 Specimen Type Clean catch urine 10/21/22 23:54 Urine Color Dark yellow (YELLOW) 10/21/22 23:54 Urine Appearance Clear (CLEAR) 10/21/22 23:54 Urine pH 6.5 (5.0 - 8.0) 10/21/22 23:54 Ur Specific [place] 1.020 (1.000-1.030) 10/21/22 23:54 Urine Protein 3+ (NEGATIVE) 10/21/22 23:54 Urine Glucose (UA) Negative (NEGATIVE) 10/21/22 23:54 Urine Ketones Negative (NEGATIVE) 10/21/22 23:54 Urine Blood 5+ (NEGATIVE) 10/21/22 23:54 Urine Nitrite Negative (NEGATIVE) 10/21/22 23:54 Urine Bilirubin Negative (NEGATIVE) 10/21/22 23:54 Urine Urobilinogen Normal (NORMAL) 10/21/22 23:54 Ur Leukocyte Esterase 1+ (NEGATIVE) 10/21/22 23:54 Urine RBC Tntc /HPF (0-3) A 10/21/22 23:54 Urine WBC 3-5 /HPF (0-5) 10/21/22 23:54 Ur Squamous Epith Cells Few /HPF (NEGATIVE) 10/21/22 23:54 Ur Transition Epith Cell Rare /HPF (NEGATIVE) 10/21/22 23:54 Urine Bacteria Negative /HPF (NEGATIVE) 10/21/22 23:54 Ur Culture Indicated? No/not indicated 10/21/22 23:54 SARS-CoV-2 (PCR) Negative (NEGATIVE) 10/21/22 23:01 Influenza Type A (PCR) Negative (NEGATIVE) 10/21/22 23:01 Influenza Type B (PCR) Negative (NEGATIVE) 10/21/22 23:01 RSV (PCR) Negative (NEGATIVE) 10/21/22 23:01 Review of Systems Constitutional: Weakness Eyes: No Symptoms Reported ENT: No Symptoms Reported Respiratory: Cough, Shortness of Breath and Wheezing Cardiovascular: No Symptoms Reported Gastrointestinal: No Symptoms Reported Genitourinary: No Symptoms Reported Musculoskeletal: No Symptoms Reported Skin: No Symptoms Reported Neurological: No Symptoms Reported Physical Exam Vital Signs: Temperature 98.2 F Pulse Rate [Left Brachial] 54 Pulse Rate 73 Respiratory Rate 18 Blood Pressure [Left Arm] 175/83 Blood Pressure [Right Arm] 121/66 Blood Pressure 136/66 O2 Sat by Pulse Oximetry 96 Oriented: Normal Eyes: Normal Ear: Normal Nose: Normal Throat: Normal Respiratory: Rhonchi Throughout and Wheezes Throughout Cardiovascular: Normal : Normal Auscultation: Bowel Sounds: Normal Palpation: Normal Tenderness: Normal Skin: Normal Musculoskeletal: Normal Psychiatric: Normal Mood Description: Calm and Appropriate Affect: Normal Speech Pattern: Clear and Appropriate Assessment/Plan (1) Bilateral pneumonia: Narrative Support Text: IV antibiotics Status: Acute (2) Hypokalemia: Status: Acute Review H&P Reviewed: Yes Patient was examined?: Yes
--- NOTE | 2022-10-23 09:32 | PCM.PROG ---
Progress Note Progress Note for Day of Date of Exam: 10/23/22 Subjective Subjective: Pt is a 37 year old female past medical history of Lupus, Pulmonary embolism, admitted for bilateral pneumonia. This morning she reports improvement in her symptoms and breathing. No acute events overnight. Labs/imaging: Wbc 5.9, Hgb 10.2, Plt 215, Na 139, K 4.4, Creatinine 0.58, Glucose 158, Sputum culture pending, CXR is pending. Pt is currently on antibiotics: Rocephin and Doxycycline, IV Solumedrol 40mg Q8h. Scheduled bronchodilators. Home medications have been resumed. Otherwise, will continue with current treatment plan. Continue to closely monitor and follow up labs in the morning. Past Medical Family Social History Allergies: Allergies vancomycin Allergy (Verified 02/28/20 18:24) Review of Systems ROS changes noted: see HPI Vital Signs and I&O's Vital Signs: Temperature 98 F Pulse Rate [Left Brachial] 53 Pulse Rate 73 Respiratory Rate 18 Blood Pressure [Left Arm] 179/86 Blood Pressure [Right Arm] 121/66 Blood Pressure 136/66 O2 Sat by Pulse Oximetry 94 Intake and Output: Intake & Output 10/20/22 10/21/22 10/22/22 10/23/22 22:59 23:59 23:59 23:59 Intake Total 2069 355 / 355 Balance 2069 355 / 355 Physical Exam Oriented: Normal Eyes: Normal Ear: Normal Nose: Normal Throat: Normal Respiratory: Rhonchi Cardiovascular: Normal : Normal Auscultation: Bowel Sounds: Normal Tenderness: Normal Skin: Normal Musculoskeletal: Normal Psychiatric: Normal Mood Description: Calm and Appropriate Affect: Normal Speech Pattern: Clear and Appropriate Laboratory and Diagnostics Result Diagrams: 10/23/22 05:17 10/23/22 05:17 Labs: 10/22/22 02:25 Sputum - Expectorated Sputum Sputum Culture - Preliminary 10/22/22 02:25 Sputum - Expectorated Sputum - Final Laboratory WBC 5.9 X10^3/uL (3.6-10.0) 10/23/22 05:17 RBC 3.33 X10^6/uL (3.5-5.4) L 10/23/22 05:17 Hgb 10.2 g/dL (12.0-16.0) L 10/23/22 05:17 Hct 30.2 % (36.0-47.0) L 10/23/22 05:17 MCV 90.5 fL (80.0-100.0) 10/23/22 05:17 MCH 30.5 pg (27.0-34.0) 10/23/22 05:17 MCHC 33.7 g/dL (33.0-35.0) 10/23/22 05:17 RDW 16.2 % (11.6-16.5) 10/23/22 05:17 Plt Count 215 X10^3/uL (150.0-450.0) 10/23/22 05:17 Plt Count Comment Adequate (ADEQUATE) 10/21/22 23:10 MPV 8.8 fL (7.4-11.0) 10/23/22 05:17 Neut % (Auto) 82.9 % (42.0-75.0) H 10/23/22 05:17 Lymph % (Auto) 13.8 % (21.0-51.0) L 10/23/22 05:17 [place] % (Auto) 2.7 % (0.0-13.0) 10/23/22 05:17 Eos % (Auto) 0.1 % (0.9-2.9) L 10/23/22 05:17 Baso % (Auto) 0.5 % (0.2-1.0) 10/23/22 05:17 Neut # (Auto) 4.9 x10^3/uL (2.2-4.8) H 10/23/22 05:17 Lymph # (Auto) 0.8 X10^3/uL (1.3-2.9) L 10/23/22 05:17 [place] # (Auto) 0.2 x10^3/uL (0.3-0.8) L 10/23/22 05:17 Eos # (Auto) 0.0 x10^3/uL (0.0-0.2) 10/23/22 05:17 Baso # (Auto) 0.0 X10^3/uL (0.0-0.1) 10/23/22 05:17 Absolute Nucleated RBC 0.1 /100WBC 10/23/22 05:17 Total Counted 100 10/21/22 23:10 Neutrophils % (Manual) 94 % (39-76) H 10/21/22 23:10 Band Neutrophils % 1 % (0-10) 10/21/22 23:10 Lymphocytes % (Manual) 3 % (13-43) L 10/21/22 23:10 Monocytes % (Manual) 2 % (4-9) L 10/21/22 23:10 Plt Morphology Comment Normal (NORMAL) 10/21/22 23:10 RBC Morphology Abnormal (NORMAL) A 10/21/22 23:10 Target Cells Present 10/21/22 23:10 Tear Drop Cells Present 10/21/22 23:10 Ovalocytes Present 10/21/22 23:10 Sodium 139 mmol/L (136-145) 10/23/22 05:17 Corrected Sodium 140 mmol/L (136-145) 10/23/22 05:17 Potassium 4.4 mmol/L (3.5-5.1) 10/23/22 05:17 Chloride 106 mmol/L (98-107) 10/23/22 05:17 Carbon Dioxide 22.3 mmol/L (21-32) 10/23/22 05:17 BUN 18 mg/dL (7-18) 10/23/22 05:17 Creatinine 0.58 mg/dL (0.55-1.02) 10/23/22 05:17 Est GFR (MDRD) Af Amer > 60 (>60) 10/23/22 05:17 Est GFR (MDRD) Non-Af > 60 (>60) 10/23/22 05:17 Glucose 158 mg/dL (65-99) H 10/23/22 05:17 POC Glucose (mg/dL) 145 mg/dL (65-99) H 10/23/22 05:16 Lactic Acid 0.7 mmol/L (0.4-2.0) 10/21/22 23:10 Calcium 8.2 mg/dL (8.5-10.1) L 10/23/22 05:17 Corrected Calcium 9.4 mg/dL (8.5-10.1) 10/23/22 05:17 Magnesium 2.4 mg/dL (2.0-2.9) 10/22/22 04:40 Total Bilirubin 0.20 mg/dL (0.2-1.0) 10/23/22 05:17 AST 23 Units/L (15-37) 10/23/22 05:17 ALT 38 Units/L (12-78) 10/23/22 05:17 Alkaline Phosphatase 101 Units/L (46-116) 10/23/22 05:17 Total Protein 6.6 g/dL (6.4-8.2) 10/23/22 05:17 Albumin 2.5 g/dL (3.4-5.0) L 10/23/22 05:17 Globulin 4.1 g/dL (2.5-4.5) 10/23/22 05:17 Albumin/Globulin Ratio 0.6 Ratio (1.1-2.1) L 10/23/22 05:17 Specimen Type Clean catch urine 10/21/22 23:54 Urine Color Dark yellow (YELLOW) 10/21/22 23:54 Urine Appearance Clear (CLEAR) 10/21/22 23:54 Urine pH 6.5 (5.0 - 8.0) 10/21/22 23:54 Ur Specific [place] 1.020 (1.000-1.030) 10/21/22 23:54 Urine Protein 3+ (NEGATIVE) 10/21/22 23:54 Urine Glucose (UA) Negative (NEGATIVE) 10/21/22 23:54 Urine Ketones Negative (NEGATIVE) 10/21/22 23:54 Urine Blood 5+ (NEGATIVE) 10/21/22 23:54 Urine Nitrite Negative (NEGATIVE) 10/21/22 23:54 Urine Bilirubin Negative (NEGATIVE) 10/21/22 23:54 Urine Urobilinogen Normal (NORMAL) 10/21/22 23:54 Ur Leukocyte Esterase 1+ (NEGATIVE) 10/21/22 23:54 Urine RBC Tntc /HPF (0-3) A 10/21/22 23:54 Urine WBC 3-5 /HPF (0-5) 10/21/22 23:54 Ur Squamous Epith Cells Few /HPF (NEGATIVE) 10/21/22 23:54 Ur Transition Epith Cell Rare /HPF (NEGATIVE) 10/21/22 23:54 Urine Bacteria Negative /HPF (NEGATIVE) 10/21/22 23:54 Ur Culture Indicated? No/not indicated 10/21/22 23:54 SARS-CoV-2 (PCR) Negative (NEGATIVE) 10/21/22 23:01 Influenza Type A (PCR) Negative (NEGATIVE) 10/21/22 23:01 Influenza Type B (PCR) Negative (NEGATIVE) 10/21/22 23:01 RSV (PCR) Negative (NEGATIVE) 10/21/22 23:01 Plan (1) Bilateral pneumonia: Status: Acute Plan: IV antibiotics (2) Hypokalemia: Status: Acute
[2022-10-23] MEDS: DIFLUCAN PO SCH (11:49)
--- NOTE | 2022-10-23 17:03 | RAD ---
HISTORYPNEUMONIA FOLLOW UP Relevant Clinical InformationSTUDYCHEST, 1 [id number]/12/2023FINDINGSTrachea is midline. There is stable borderline cardiomegaly. 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 There is mild central congestion and chronic peribronchial thickening, no dominant alveolar radiopacities, no pleural effusions or pneumothorax. There has been interval improvement of previously seen some of the interstitial markings in the bases. There is suspected mild fibrosis in the bases.IMPRESSIONChronic perihilar peribronchial thickening, no dominant alveolar radiopacities: Improvement of interstitial changes in the midlung some, with suspected mild fibrosis in the basesElectronically signed by: Irish Poole (Oct 23, 2022 17:03:13)
[2022-10-24] MEDS: ROXICODONE TAB 15 MG PO PRN (02:18)
[2022-10-24] MEDS: ROCEPHIN VIAL 1 GRAM 1 G in NS 100 ML IV 100 ML IV SCH (02:18)
[2022-10-24] MEDS: SOLU-Medrol 40 MG VIAL IVP SCH (05:15)
[2022-10-24] MEDS: XOPENEX 1.25 MG/3 ML NEBULE NEB SCH (05:22)
[2022-10-24 09:09] VITALS: BP 155/83
[2022-10-24] MEDS: LOVENOX INJ 60 MG SYR SC SCH (09:10)
[2022-10-24] MEDS: VIBRAMYCIN PO SCH (09:11)
[2022-10-24] MEDS: DIFLUCAN PO SCH (09:11)
== END 2022-10-24 09:42 | disposition home or self-care (01) | DRG 195 ==
LOC: MED/SURG 22:12 → ER 22:12 → OBSVTOIN 10-22 01:01 → MED/SURG 10-22 01:27
PROVIDERS: ADMIT Family Medicine; ATTEND Family Medicine
DX: M32.9 Systemic lupus erythematosus, unspecified; M06.9 Rheumatoid arthritis, unspecified; R06.02 Shortness of breath; E87.6 Hypokalemia; J18.8 Other pneumonia, unspecified organism; E11.65 Type 2 diabetes mellitus with hyperglycemia; Z20.822 Contact with and (suspected) exposure to COVID-19